=== PATIENT | female | born 1960 | race Caucasian/White ===

== ENCOUNTER 2018-07-11 12:25 | Inpatient (IN) ==
[~2018-07-11 12:25] MED LIST: *HR* Etomidate 20 MG/10 ML AMPUL IVP ONE; *HR* Midazolam HCl 5 MG/5 ML VIAL IVP ONE
[2018-07-11] MEDS ORDERED: Isovue-370 500 ML BOTTLE IVP ONE ×2 (12:33→14:12)
[2018-07-11 12:54] LABS: Basophils # 0.2 K/mcL (0.0-0.2); Basophils % 0.5 %; Eosinophils % 0.1 %; Hematocrit 42.2 % (35.3-44.9); Hemoglobin 13.5 g/dL (11.5-15.4); Immature Granulocytes % 1.3 % (0-4); Lymphocytes # 1.5 K/mcL (0.6-4.6); Lymphocytes % 4.2 %; Mean Corpuscular Hemoglobin 28.2 pg (28.0-33.3); Mean Corpuscular Volume 88.1 fL (83.0-100.0); Mean Platelet Volume 10.2 fL (9.4-12.4); Monocytes % 6.4 %; Neutrophils # 30.7 K/mcL (1.6-8.9); Platelet Count 490 K/mcL (140-400); Red Blood Count 4.79 M/mcL (3.82-4.97); Red Cell Distribution Width 15.8 % (11.5-14.5); Segmented Neutrophils % 87.5 %
[2018-07-11] MEDS ORDERED: 0.9 % Sodium Chloride 1,000 ML IVC ONE ×2 (13:00→14:22)
[2018-07-11] MEDS ORDERED: Ipratropium/Albuterol Neb 3 ML IH ONE (13:00)
[2018-07-11] MEDS ORDERED: Dexamethasone 4 MG/ML VIAL IVP ONE (13:00)
--- NOTE | 2018-07-11 13:00 | Emergency Department Note ---
Disposition Clinical Impression: Loculated pleural effusion, Hypoxia Pneumonia Qualifiers: Pneumonia type: due to unspecified organism Laterality: left Lung location: unspecified part of lung Qualified Code(s): J18.9 - Pneumonia, unspecified organism Hypotension Qualifiers: Hypotension type: unspecified hypotension type Qualified Code(s): I95.9 - Hypotension, unspecified Disposition: Admitted As Inpatient Condition: Critical Time of Disposition: 14:40 General Adult HPI - General Chief complaint: ED Shortness of Breath/Dyspnea Stated complaint: BARB Time Seen by Provider: 07/11/18 12:32 Source: EMS Nursing Notes Reviewed: Yes Vital Signs Reviewed: Yes - History of Present Illness HPI Narrative: I did see the patient immediately upon arrival and also spoke with the paramedics, the patient presents with shortness of breath which had been present for 3 months but improved and then gradually worsened 2 days ago and has been c onstant and worse with exertion and when the paramedics arrived her oxygen saturation was 74% and she is a smoker. She does not use home oxygen. She did get for penicillin filled yesterday from her [id number]. Shortness of breath is worse with exertion, she does have a cough which is present with gross hemoptysis. Denies any chest pain at rest but does have sharp chest pain when she takes a very deep breath. No pain or swelling of the lower extremities. She does not have any Rhinorrhea or sneezing. Social history: Smoker, no alcohol or drugs Pain Scale: 0 - Related Data Allergies Allergy/AdvReac Type Severity Reaction Status Date / Time No Known Allergies Allergy Verified 07/11/18 12:33 Review of Systems: Constitutional: No fever Vision: No blurred vision ENT: No rhinorrhea Respiratory: + cough Allergic: No allergies : No blood in urine GI: No blood in stool Hematologic: No bruising Dermatologic: No skin rash Musculoskeletal: No pain in the extremities Neuro: No numbness of the extremities Past Medical History - Past Medical History Medical history: Reports: no medical history - Social History Smoking Status: Current every day smoker Smokeless Tobacco Status: No Alcohol use: Reports: occasionally Drug use: Reports: none Physical Exam CONSTITUTIONAL: Well-appearing; well-nourished; A&O X 3, in no apparent distress HEAD: Normocephalic; atraumatic EYES: PERRL, no scleral icterus NOSE: The nose is normal in appearance without rhinorrhea NECK: No JVD or distended neck veins RESP: Normal chest excursion with respiration; breath sounds with bilateral rhonchi which is worse on the right CARD: Regular rhythm, without murmurs, rub or gallop ABD: Non-distended; non-tender, soft, without rigidity, rebound or guarding,no pulsatile mass CHEST: No pain with palpation SKIN: Normal for age and race; warm and dry without diaphoresis ; no apparent lesions EXTREMITIES: Pulses are 2 plus and equal times 4 extremities, no peripheral edema or calf muscle pain - General General appearance: alert Course Vital Signs Temperature 98.3 F 07/11/18 12:33 Pulse Rate 120 07/11/18 12:33 Respiratory Rate 28 07/11/18 12:33 Blood Pressure 112/68 07/11/18 12:33 O2 Sat by Pulse Oximetry 95 07/11/18 12:33 Temperature 98.3 F 07/11/18 12:33 Pulse Rate 120 07/11/18 14:19 Respiratory Rate 23 07/11/18 14:19 Blood Pressure 113/73 07/11/18 14:19 O2 Sat by Pulse Oximetry 93 07/11/18 14:19 Oxygen Delivery Oxygen Delivery Non Rebreather Mask Medical Decision Making - [facility] Narrative Medical decision making narrative: I did review the patient's EKG which shows sinus tachycardia with rate of 119 bpm, there are prominent P waves inferiorly likely indicative of underlying COPD, nonspecific ST changes but I do not see any evidence of growth arrhythmia. Patient does have orders for DuoNeb, IV steroids, chest x-ray, CT of the chest, labs and the patient will be admitted to the hospital for respiratory distress. She is on nasal cannula oxygen and satting well on this. 1300 Patient does have significant leukocytosis with a white blood cell count of 35,000 and does have elevated creatinine but we do not have old creatinine levels here so I am notifying and contacting the primary care physician to see if they have a creatinine level at their office. We will hold on the CTA of the chest at this time. She is not having gross hemoptysis here in the emergency department. With the high white blood cell count will initiate therapy with broad-spectrum antibiotics. Chest x-ray result pending. 1355 I did go back to check on the patient and she remains on a nonrebreather mask and now her oxygen saturation is 94%. She does have a blood pressure of 98 systolic and I did write for a second liter of IV fluids. Chest x-ray does show large loculated effusion and I did write for a chest CT have also paged pulmonary critical care for admission to the intensive care unit. Patient is started on Rocephin 2 g and Zithromax 500 mg and this was ordered previously so this can be focused on the patient's more likely organism pending recommendation from the critical care physician. Pending CT result I will discuss further with interventional radiology in case this patient would need drainage of this loculated effusion tonight. She is mentating well. I did speak with Dr. Gonzales her primary care physician who states that the last time he saw her was 7 years ago but does not have labs at that time [address] Leo from the ICU who except the patient for admission. We did review the test results. We are waiting for the CT scan of the chest. He does recommend switching Rocephin 2 Zosyn and I did do that and spoke with the ED pharmacist who will help facilitate this occurring. I also wrote for blood cultures. Lactate level is normal. Await results CT that I will discuss further with thoracic surgery per his recommendation. Patient is in a very critical condition and we will watch closely here. Oxygen saturation is good at this time. Mentating well. Second liter IV fluids has been written for. 1439 I did speak again with the ICU team. I did see the patient again and also spoke with the and other family who have arrived. I did speak with the interventional radiologist will look at the x-ray and call us back. I did review the lab tests. I did inform them of the critical nature of the encounter. 1518 - Medical Records Medical records reviewed: Yes I reviewed the patient's medical records. - Lab Data Lab results reviewed: Yes I reviewed the patient's lab results. Result diagrams: 07/11/18 12:43 07/11/18 12:43 Lab Results 07/11/18 07/11/18 07/11/18 Range/Units 12:40 12:43 12:43 WBC 35.1 H* (4.3-11.1) K/mcL RBC 4.79 (3.82-4.97) M/mcL Hgb 13.5 (11.5-15.4) g/dL Hct 42.2 (35.3-44.9) % MCV 88.1 (83.0-100.0) fL MCH 28.2 (28.0-33.3) pg MCHC 32.0 (31.6-35.5) g/dL RDW 15.8 H (11.5-14.5) % Plt Count 490 H (140-400) K/mcL MPV 10.2 (9.4-12.4) fL Immature Gran % 1.3 (0-4) % Seg Neutrophils % 87.5 % Lymphocytes % 4.2 % Monocytes % 6.4 % Eosinophils % 0.1 % Basophils % 0.5 % Neutrophils # 30.7 H (1.6-8.9) K/mcL Lymphocytes # 1.5 (0.6-4.6) K/mcL Monocytes # 2.3 H (0.0-1.3) K/mcL Eosinophils # 0.0 (0.0-0.6) K/mcL Basophils # 0.2 (0.0-0.2) K/mcL PT 14.4 H (9.4-12.1) Seconds INR 1.3 Sodium 134 L (136-145) mEq/L Potassium 5.8 H (3.5-5.1) mEq/L Chloride 94 L (98-107) mEq/L Carbon Dioxide 26 (23-29) mEq/L BUN 76 H (8-23) mg/dL Creatinine 3.37 H (0.60-1.20) mg/dL Est GFR ( Amer) 17 L (> 60) Est GFR (Non-Af Amer) 14 L (> 60) BUN/Creatinine Ratio 23 (6-26) Glucose 85 (70-105) mg/dL Calculated Osmolality 300 (280-300) Lactic Acid (0.5-2.2) mmol/L Calcium 8.1 L (8.6-10.3) mg/dL Total Bilirubin 0.5 (0.3-1.0) mg/dL Direct Bilirubin 0.1 (0.0-0.2) mg/dL Indirect Bilirubin 0.4 (0.0-1.2) mg/dL AST 14 (13-39) Units/L ALT 7 (7-52) Units/L Alkaline Phosphatase 144 H (34-104) Units/L Troponin I 0.03 (< 0.04) ng/mL Serum Total Protein 7.2 (6.4-8.9) g/dL Albumin 2.9 L (3.5-5.7) g/dL Globulin 4.3 H (2.4-3.5) g/dL Albumin/Globulin Ratio 0.7 L (1.1-2.2) 07/11/18 Range/Units 12:43 WBC (4.3-11.1) K/mcL RBC (3.82-4.97) M/mcL Hgb (11.5-15.4) g/dL Hct (35.3-44.9) % MCV (83.0-100.0) fL MCH (28.0-33.3) pg MCHC (31.6-35.5) g/dL RDW (11.5-14.5) % Plt Count (140-400) K/mcL MPV (9.4-12.4) fL Immature Gran % (0-4) % Seg Neutrophils % % Lymphocytes % % Monocytes % % Eosinophils % % Basophils % % Neutrophils # (1.6-8.9) K/mcL Lymphocytes # (0.6-4.6) K/mcL Monocytes # (0.0-1.3) K/mcL Eosinophils # (0.0-0.6) K/mcL Basophils # (0.0-0.2) K/mcL PT (9.4-12.1) Seconds INR Sodium (136-145) mEq/L Potassium (3.5-5.1) mEq/L Chloride (98-107) mEq/L Carbon Dioxide (23-29) mEq/L BUN (8-23) mg/dL Creatinine (0.60-1.20) mg/dL Est GFR ( Amer) (> 60) Est GFR (Non-Af Amer) (> 60) BUN/Creatinine Ratio (6-26) Glucose (70-105) mg/dL Calculated Osmolality (280-300) Lactic Acid 1.7 (0.5-2.2) mmol/L Calcium (8.6-10.3) mg/dL Total Bilirubin (0.3-1.0) mg/dL Direct Bilirubin (0.0-0.2) mg/dL Indirect Bilirubin (0.0-1.2) mg/dL AST (13-39) Units/L ALT (7-52) Units/L Alkaline Phosphatase (34-104) Units/L Troponin I (< 0.04) ng/mL Serum Total Protein (6.4-8.9) g/dL Albumin (3.5-5.7) g/dL Globulin (2.4-3.5) g/dL Albumin/Globulin Ratio (1.1-2.2) - Radiology Data Radiology results reviewed: Yes I reviewed the patient's radiology results. Critical Care Time Critical Care Time: Yes Total Critical Care Time: 45 Attestation: 45 minutes of critical care time were spent with this patient with acute respiratory distress, severe hypoxemia with room air oxygen saturation 74%, complex pulmonary process with a large loculated effusion, broad-spectrum antibiotics, discussion with the pulmonary military technology specialist, discussion with interventional radiology and multiple visits back to see the patient was on a nonrebreather mask at this time [id number]
[2018-07-11 13:02] LABS: Monocytes # 2.3 K/mcL (0.0-1.3)
[2018-07-11 13:20] LABS: INR 1.3; Prothrombin Time 14.4 Seconds (9.4-12.1)
[2018-07-11 13:40] LABS: Albumin 2.9 g/dL (3.5-5.7); Albumin/Globulin Ratio 0.7 (1.1-2.2); Bilirubin,Direct 0.1 mg/dL (0.0-0.2); Bilirubin,Indirect 0.4 mg/dL (0.0-1.2); Bilirubin,Total 0.5 mg/dL (0.3-1.0); Calcium 8.1 mg/dL (8.6-10.3); Globulin 4.3 g/dL (2.4-3.5); Potassium 5.8 mEq/L (3.5-5.1); Total Protein 7.2 g/dL (6.4-8.9); Troponin I 0.03 ng/mL (< 0.04)
[2018-07-11] MEDS ORDERED: Azithromycin 500 MG in D5% in Water 250 ML IVPB ONE (14:22)
[2018-07-11] MEDS ORDERED: Piperacillin/Tazobactam 3.375 GM in 0.9 % Sodium Chloride Mini Bag 100 ML IVPB ONE (14:37)
[2018-07-11] MEDS ORDERED: Naloxone 0.4 MG/ML INJ IVP PRN (14:58)
[2018-07-11] MEDS ORDERED: 0.9 % Sodium Chloride 1,000 ML IVC SCH (15:00)
--- NOTE | 2018-07-11 15:11 | Pulmonology History & Physical ---
<Tolu Chaney W - Last Filed: 07/11/18 16:36> Date of Encounter: 07/11/18 History of Present Illness HPI: Ms. Randall is a 58 year old female Medications and Allergies No Known Home Drugs 07/11/18 [History] Allergy/AdvReac Type Severity Reaction Status Date / Time No Known Allergies Allergy Verified 07/11/18 16:11 All Systems: The remainder of the systems were reviewed and are negative Physical Examination Vital Signs: Vital Signs, Last 4 Hours Pulse Resp BP Pulse Ox 07/11/18 14:19 120 23 113/73 93 07/11/18 13:22 18 95 07/11/18 13:20 118 93/69 92 07/11/18 12:41 94 Results - Laboratory Findings CBC and BMP: 07/11/18 12:43 07/11/18 12:43 PT/INR, D-dimer PT 14.4 Seconds (9.4-12.1) H 07/11/18 12:40 Abnormal lab findings: Abnormal lab results WBC 35.1 K/mcL (4.3-11.1) H* 07/11/18 12:43 RDW 15.8 % (11.5-14.5) H 07/11/18 12:43 Plt Count 490 K/mcL (140-400) H 07/11/18 12:43 Neutrophils # 30.7 K/mcL (1.6-8.9) H 07/11/18 12:43 Monocytes # 2.3 K/mcL (0.0-1.3) H 07/11/18 12:43 PT 14.4 Seconds (9.4-12.1) H 07/11/18 12:40 Sodium 134 mEq/L (136-145) L 07/11/18 12:43 Potassium 5.8 mEq/L (3.5-5.1) H 07/11/18 12:43 Chloride 94 mEq/L (98-107) L 07/11/18 12:43 BUN 76 mg/dL (8-23) H 07/11/18 12:43 Creatinine 3.37 mg/dL (0.60-1.20) H 07/11/18 12:43 Est GFR ( Amer) 17 (> 60) L 07/11/18 12:43 Est GFR (Non-Af Amer) 14 (> 60) L 07/11/18 12:43 Calcium 8.1 mg/dL (8.6-10.3) L 07/11/18 12:43 Alkaline Phosphatase 144 Units/L (34-104) H 07/11/18 12:43 Albumin 2.9 g/dL (3.5-5.7) L 07/11/18 12:43 Globulin 4.3 g/dL (2.4-3.5) H 07/11/18 12:43 Albumin/Globulin Ratio 0.7 (1.1-2.2) L 07/11/18 12:43 - Attending Attestation I examined this patient and my medical decision-making was reviewed with the Resident Physician. I agree with the documented findings, disposition and treatment plan as described except to the extent set forth below. We independently had [id number] contact with the patient I spent 32min of Critical Care time with this patient. It involved decision making of high complexity to assess, manipulate, and support vital organ system failure and/or to prevent further life threatening deterioration of the patient's condition. The time involved in the performance of separately reportable procedures was not counted toward critical care time. Patient seen and examined at bedside Labs, radiology, chart personally reviewed. . USER EXPERIENCE DESIGNER: Lethargic but no focal neurological deficit Pulm: Acute hypoxic respiratory failure secondary to pneumonia and pleural effusion suspected empyema versus malignant effusion patient also presenting with submassive hemoptysis but high concern for malignancy recommend bronchos copy. Chest tube is in place by IR I suspect she will need general surgery consultation . A bronchoscopy is recommended. The procedure , risks, benefits, complications, and expected outcomes have been reviewed. Benefits of diagnosis, as well as risks to include bleeding, infection, pneumothorax which may require surgical intervention, and in a small population. The patient is aware t hat sometimes test is nondiagnostic. Discussed with patient and agrees to proceed. Cards: Borderline hypotensive likely secondary to sepsis fluid resuscitation underway and lactate is normal she is tachycardic reflexively GI: Nothing by mouth for now Renal: AK I likely secondary to volume depletion/infection also use of NSAIDs she has mild hyperkalemia repeat potassium pending UOP Monitored, Cont to Trend sCr and monitor Electrolytes. ID: She is on broad-spectrum antibiotics for pneumonia and suspected empyema also with anaerobic coverage cultures have been obtained Heme/Onc: Mechanical DVT prophylaxis Endo: Glucose Monitored Integ/MSK: Skin Care per routine ICU Nursing Protocol to prevent ulcers. Lines: All lines examined without evidence of infection : Dispo: We will triaged to the ICU because of critical illness and high risk of decline CODE: Full <Mason Currie - Last Filed: 07/11/18 17:24> Date of Encounter: 07/11/18 Time of Encounter: 15:07 Assessment and Plan (1) Acute and chronic respiratory failure with hypoxia Current visit: Yes Status: Acute Patient was found to have acute on chronic respiratory failure with an initial oxygen saturation in the 70s with EMS arrived. Patient placed on a nonrebreather oxygen mask upon arrival in the emergency department and her oxygen saturations have come up into the low 90s. Patient's chest x-ray shows evidence of pneumonia as well as likely pleural effusion. A CT scan will be ordered to further evaluate the likelihood pleural effusions. Interventional radiology will be consulted from the emergency department. Patient the patient having hemoptysis, weight loss and worsening of her respiratory status as well as pneumonia and loculated pleural effusion there is a high concern that this could potentially be a malignancy. There is also potential concern for the patient having a pulmonary emboli due to being tachycardic, hypoxic and short of breath. However due to the patient's renal function we will not be able to order a CT with IV contrast. We will the CT will be ordered will be a noncontrast study. Due to the patient having loculated pleural effusion with purulent drainage mixed with blood we will do a bronchoscopy tonight to evaluate for possible mass or identification of the patient's site of hemoptysis. (2) Loculated pleural effusion Current visit: Yes Status: Acute Patient has loculated pleural effusions on the left side. Patient will have a CT scan of the chest to evaluate likely pleural effusions further. The patient does have an acute kidney injury so the scan will be a noncontrasted CT scan from the emergency department. . Interventional radiology has been counseled by the ER. Patient was seen by interventional radiology and a left-sided thoracentesis and chest tube were placed. 20 mL of purulent drainage was drawn off and sent to the lab for analysis. (3) Pneumonia Current visit: Yes Status: Acute Patient's chest x-ray is concerning for pneumonia as well as loculated pleural effusion. Patient was started on Zosyn. We will continue to monitor the patient's respiratory status. CT surgery and interventional radiology consult. The patient will be admitted to the ICU for close monitoring of her respiratory status. (4) Leukocytosis Current visit: Yes Status: Acute Patient has a significant leukocytosis of 35.1. This is likely secondary to the patient's pneumonia and potential loculated pleural effusion. A CT scan will be obtained to further evaluate the patient's likely or pleural effusion. IR was consulted for the pleural effusion. Patient has been started on IV antibiotics. Patient was started on Zosyn. We will continue to monitor the patients WBC Qualifiers: Leukocytosis type: unspecified Qualified Code(s): D72.829 - Elevated white blood cell count, unspecified (5) Acute kidney injury Current visit: Yes Status: Acute Patient appears to have an acute kidney injury. Her creatinine is 3.37 with a GFR 14. There are no other labs in [place]'s electronic medical record for comparison however it does not sound like the patient has a history of chronic kidney disease. Patient was given IV fluids. We will continue to trend the patient's renal function. (6) Hyperkalemia Current visit: Yes Status: Acute Patient has a hyperkalemia of 5.8. Patient was given IV fluids in the emergency department. This will likely decrease the patient's potassium level we will not acutely treat this at this time. We will continue to follow the patient's potassium level for any changes. There is no acute EKG changes at this time. (7) Hemoptysis Current visit: Yes Status: Acute Patient had reported hemoptysis approximately a tablespoon at a time on 2 separate occasions. Patient's hemoglobin is stable at 13.5. We will continue to monitor the patient's hemoglobin as well as worsening of her hemoptysis. Patient be taken to bronchoscopy this evening to evaluate the source of hemoptysis or potential airway lesion. (8) Hypoxia Current visit: Yes Status: Acute Patient had initial hypoxia with an oxygen saturation of 74% upon arrival of EMS. Patient has been on a nonrebreather oxygen mask in the emergency department with oxygen saturations in the low 90s. We will continue to monitor the patient's respiratory status and provide the patient with supplemental oxygen while she is admitted here to the ICU. This time I do not feel the patient requires BiPAP or intubation. (9) Hypotension Current visit: Yes Status: Acute Patient had a couple of blood pressure readings in the emergency department that were in the 90s. She was given IV hydration in the emergency department. We will continue with maintenance fluids here in the ICU. We will continue to monitor the patient's blood pressure. This time she does not require any vasopressor support. Patient's blood pressure has responded appropriately to IV fluids and her systolic blood pressure was in the 110s. Qualifiers: Hypotension type: unspecified hypotension type Qualified Code(s): I95.9 - Hypotension, unspecified (10) DVT prophylaxis Current visit: Yes Status: Acute Due the patient having hemoptysis we will use SCDs for DVT prophylaxis. History of Present Illness Chief complaint: Shortness of breath HPI: Ms. Randall is a 58 year old female that presented to the emergency department he re at [facility] [place] for shortness of breath. Patient had been expressing increasing shortness breath over the past 2-3 months but had intermittent improvement but over the last 3-4 days and feels that her shortness of breath has gotten worse. Reports was that her initial oxygen saturation was 74%. Patient reports that she is a smoker and has a history of smoking approximately 2 packs per day. Patient denies home oxygen use. Patient also reports that she has been coughing and is had a couple episodes of hemoptysis. States that she has had 2 episodes of approximately 1 tablespoon of blood in each. Patient states that she has not seen a doctor in quite some time and does not like seeing doctors. Patient also reports she has had weight loss over the past 8-9 months. Patient reports that back in November she weighed 140 some pounds and today she is approximately 130 pounds. Patient denies any chest pain. Patient reported to the emergency department staff that she felt that her shortness of breath was worse with exertion. The workup in the emergency department showed a loculated pleural effusion at the lung base and at the left lung apex. There is concern for an underlying consolidation. A CT scan will be obtained for further delineation of the pleural effusion. Interventional radiology was consult by the emergency department. He will also speak to the cardiothoracic surgery once the CT scan results. Patient was started on broad- spectrum antibiotics and will be admitted to the ICU. Past Med Surg Social Fam HX - Past Medical History Medical history: no medical history Additional medical history: Spinal Stenosis - Social History Smoking Status: Current every day smoker Smokeless Tobacco Status: No Alcohol use: occasionally Drug use: none All Systems: The remainder of the systems were reviewed and are negative - Constitutional Constitutional: weight loss, no night sweats - Cardiovascular Cardiovascular: dyspnea, no chest pain - Respiratory Respiratory: cough, dyspnea, hemoptysis - Gastrointestinal Gastrointestinal: no abdominal pain Physical Examination Vital Signs: Vital Signs, Last 4 Hours Temp Pulse Resp BP Pulse Ox 07/11/18 14:19 120 23 113/73 93 07/11/18 13:22 18 95 07/11/18 13:20 118 93/69 92 07/11/18 12:41 94 07/11/18 12:33 98.3 F 120 28 112/68 95 General appearance: alert, other (Resting in bed on a nonrebreather mask.) Eyes: nonicteric Effort: mildly labored Auscultation: bilateral: other (Course breath sounds bilaterally in the upper and lower jones.) Cardiovascular: other (Tachycardia) Gastrointestinal: normoactive bowel sounds, soft, non-tender, non-distended Integumentary: normal Extremities: no cyanosis, edema (Mild edema) Musculoskeletal: no deformities normal mental status, non-focal exam, motor strength normal and symmetric mood appropriate, affect normal Results - Laboratory Findings CBC and BMP: 07/11/18 12:43 07/11/18 12:43 PT/INR, D-dimer PT 14.4 Seconds (9.4-12.1) H 07/11/18 12:40 Abnormal lab findings: Abnormal lab results WBC 35.1 K/mcL (4.3-11.1) H* 07/11/18 12:43 RDW 15.8 % (11.5-14.5) H 07/11/18 12:43 Plt Count 490 K/mcL (140-400) H 07/11/18 12:43 Neutrophils # 30.7 K/mcL (1.6-8.9) H 07/11/18 12:43 Monocytes # 2.3 K/mcL (0.0-1.3) H 07/11/18 12:43 PT 14.4 Seconds (9.4-12.1) H 07/11/18 12:40 Sodium 134 mEq/L (136-145) L 07/11/18 12:43 Potassium 5.8 mEq/L (3.5-5.1) H 07/11/18 12:43 Chloride 94 mEq/L (98-107) L 07/11/18 12:43 BUN 76 mg/dL (8-23) H 07/11/18 12:43 Creatinine 3.37 mg/dL (0.60-1.20) H 07/11/18 12:43 Est GFR ( Amer) 17 (> 60) L 07/11/18 12:43 Est GFR (Non-Af Amer) 14 (> 60) L 07/11/18 12:43 Calcium 8.1 mg/dL (8.6-10.3) L 07/11/18 12:43 Alkaline Phosphatase 144 Units/L (34-104) H 07/11/18 12:43 Albumin 2.9 g/dL (3.5-5.7) L 07/11/18 12:43 Globulin 4.3 g/dL (2.4-3.5) H 07/11/18 12:43 Albumin/Globulin Ratio 0.7 (1.1-2.2) L 07/11/18 12:43
[2018-07-11] MEDS ORDERED: Ipratropium/Albuterol Neb 3 ML IH PRN (15:32)
--- NOTE | 2018-07-11 16:14 | IR Procedure Note ---
Date of procedure: 07/11/18 Consent Obtained: Written consent Timeout: Correct patient and procedure verified, Correct site verified, Time out performed, Skin prep completed Local anesthetic: Lidocaine 1% Indications: left loculated pleural effusion Procedure Performed: left chest tube Was there an bilingual office assistant present: Yes Office Machine Inspector: Norberto Chowdary Site/Technique: left pleural space Results/Findings: purulent fluid Estimated blood loss (cc): 0 Complications: None; Tolerated procedure well Post Procedure Treatment Plan: to suction on pleurovac Specimen: 20 cc purulent pleural fluid
[2018-07-11] MEDS ORDERED: methylPREDNISolone 125 MG/2 ML VIAL IVP ONE (16:22)
[2018-07-11] MEDS ORDERED: Ringers Solution, Lactated 1,000 ML ONE (16:27)
[2018-07-11] MEDS ORDERED: Ringers Solution, Lactated 1,000 ML IVC ONE (16:28)
[2018-07-11] MEDS ORDERED: *HR* Propofol 200 MG/20 ML VIAL IVP ONE (16:53)
[2018-07-11] MEDS ORDERED: Lidocaine -MPF 2% 2 ML VIAL ONE (16:55)
[2018-07-11] MEDS ORDERED: *HR* Succinylcholine 200 MG/10 ML VIAL IVP ONE (16:55)
[2018-07-11] MEDS ORDERED: methylPREDNISolone 125 MG/2 ML VIAL ONE (17:20)
--- NOTE | 2018-07-11 17:23 | Anesthesia Evaluation PreOp ---
Date of Encounter: 07/11/18 Time of Encounter: 17:25 - Past History Planned Operation: Bronchoscopy Pulmonary History: Smoker, COPD, Other (Left Pleural Effusion has Chest Tube) COMMUNICATIONS PROJECT LEAD History: Denies Any Significant HX Other Medical History: Renal (CKD) Anesthesia History: No Prior Anesthetic Complications : No Alcohol Use: none Drug use: none Medications and Allergies No Known Home Drugs 07/11/18 [History] Allergy/AdvReac Type Severity Reaction Status Date / Time No Known Allergies Allergy Verified 07/11/18 16:11 - Meds/Allergy Pre-op Review Medications Reviewed: Yes Allergies Reviewed: Yes Beta Blockers on Current Med List: No Anesthesia Results - Labs 07/11/18 12:43 07/11/18 12:43 Anesthesia Exam O2 Sat Height 1.75 m Weight 59.829 kg O2 Sat by Pulse Oximetry 93 O2 Sat by Pulse Oximetry 93 O2 Sat by Pulse Oximetry 95 O2 Sat by Pulse Oximetry 92 O2 Sat by Pulse Oximetry 94 O2 Sat by Pulse Oximetry 95 Vital Signs Temp Pulse Resp BP Pulse Ox 98.3 F 120 28 112/68 95 07/11/18 12:33 07/11/18 12:33 07/11/18 12:33 07/11/18 12:33 07/11/18 12:33 Height: 5'9 Weight: 131 lbs NPO (# of Hours): 0800 Pain Scale: 0 - HEENT Pupil (Motor): Pupils equal, EOMI Mallampati: III Oral Opening: Less than or equal to 3 - COMMUNICATIONS PROJECT LEAD LOC: Oriented COMMUNICATIONS PROJECT LEAD Motor: Normal RUE, Normal LUE, Normal RLE, Normal LLE, Normal Face COMMUNICATIONS PROJECT LEAD Sensory: Normal: RUE, LUE, RLE, LLE, Face - Cardiac Rhythm: Regular Murmur: None JVD: No Carotid Bruit: No - Pulmonary Breath Sounds: bilateral Clear Respiratory Effort: Symmetrical Anesthesia Assess/Plan ASA Score: 3, E Level of consciousness: Cooperative, Oriented Anesthetic Plan: General Autologous Blood: No Monitoring Plan: Standard Monitors Recovery Plan: PACU (Discussed GA, agrees to proceed)
[2018-07-11 17:30] LABS: Glucose,Pleural Fluid < 10 mg/dL (No Ref Range); Total Protein,Pleural Fluid 4.9 g/dL (No Ref Range)
[2018-07-11 17:39] LABS: Basophils # 0.1 K/mcL (0.0-0.2); Basophils % 0.3 %; Hematocrit 40.7 % (35.3-44.9); Hemoglobin 12.7 g/dL (11.5-15.4); Lymphocytes % 3.4 %; Mean Corpuscular HGB Conc 31.2 g/dL (31.6-35.5); Mean Corpuscular Hemoglobin 28.2 pg (28.0-33.3); Mean Corpuscular Volume 90.4 fL (83.0-100.0); Mean Platelet Volume 10.3 fL (9.4-12.4); Monocytes # 0.5 K/mcL (0.0-1.3); Monocytes % 1.6 %; Neutrophils # 27.8 K/mcL (1.6-8.9); Platelet Count 430 K/mcL (140-400); Red Cell Distribution Width 15.8 % (11.5-14.5); Segmented Neutrophils % 92.7 %
[2018-07-11] MEDS ORDERED: *HR* PHENYLEPHRINE 1,000 MCG/10 ML SYRINGE IVP ONE (17:42)
[2018-07-11] MEDS ORDERED: *HR* FentaNYL (PF) 100 MCG/2 ML VIAL ONE (17:42)
[2018-07-11 17:51] LABS: VBG Ionized Calcium 0.93 mmol/L (1.15-1.35); VBG PH 7.23 pH Units (7.32-7.42)
[2018-07-11] MEDS ORDERED: Ondansetron 4 MG/2 ML VIAL ONE (18:06)
[2018-07-11] MEDS ORDERED: Dexamethasone 4 MG/ML VIAL ONE (18:06)
[2018-07-11 18:12] LABS: Calcium 7.9 mg/dL (8.6-10.3); Magnesium 2.1 mg/dL (1.6-2.6); Phosphorous 5.5 mg/dL (2.7-4.5); Potassium 5.7 mEq/L (3.5-5.1)
[2018-07-11 18:17] LABS: Appearance of Pleural Fl Bloody (Clear)
[2018-07-11] MEDS ORDERED: Artificial Tears SOLN 15 ML BOTTLE BOTH EYES PRN (18:38)
--- NOTE | 2018-07-11 18:47 | Anesthesia Evaluation Post Op ---
Date of Encounter: 07/11/18 Time of Encounter: 18:50 - Vital Signs Vital Signs: Vital Signs/O2 Sat/Glucose, Most Current Temp Pulse Resp BP Pulse Ox 07/11/18 17:43 115 18 104/66 88 07/11/18 17:30 115 22 103/71 91 07/11/18 17:00 115 20 102/61 92 07/11/18 16:25 97.7 F 116 20 95/62 93 - Lungs Lungs: Rhonchi - Airway Airway: Intubated - Cardiovascular Baseline Rhythm - Mental Status Mental Status: Asleep with brisk response to light stimulation - Pain Pain Scale: 0 - Nausea Vomiting Nausea Vomiting: Not Present - Hydration Hydration: NPO - Discharge PostOp Status: Transfer Patient to floor (To ICU intubated, will extubate and place on BiPAP)
[2018-07-11] MEDS ORDERED: 0.9 % Sodium Chloride 500 ML IVC ONE (18:52)
[2018-07-11] MEDS ORDERED: Insulin Human Regular 10 UNIT in 0.9 % Sodium Chloride 10 ML IV ONE (18:53)
[2018-07-11] MEDS ORDERED: *HR* Dextrose 50 % in Water (Syg) 50 ML SYRINGE IVP ONE (18:53)
[2018-07-11] MEDS ORDERED: *HR* Dextrose 50 % in Water (Syg) 50 ML SYRINGE IVP PRN (18:55)
[2018-07-11] MEDS ORDERED: Piperacillin/Tazobactam 3.375 GM in 0.9 % Sodium Chloride Mini Bag 100 ML IVPB SCH (20:00)
[2018-07-11] MEDS: Chlorhexidine Rinse 15 ML MOUTHWASH MM SCH (20:53)
[2018-07-11 21:47] LABS: ABG Base Excess -1 mEq/L (-2 to 3); ABG HCO3 30 mEq/L (21-27); ABG Oxygen Saturation 97 % (95-98); ABG PCO2 81 mmHg (35-45); ABG PH 7.17 pH Units (7.32-7.45); ABG PO2 124 mmHg (85-104); ABG TCO2 32 mEq/L (20-26); Blood Gas Modality ASSIST CONTROL; Blood Gas PEEP 5 cm H2O; Blood Gas Respiration Rate 14; Blood Gas VT 450 cc
[2018-07-11] MEDS: 0.9 % Sodium Chloride 1,000 ML IVC SCH (22:00)
[2018-07-11] MEDS ORDERED: 0.9 % Sodium Chloride 1,000 ML ONE (22:31)
[2018-07-11 22:35] LABS: Potassium 5.2 mEq/L (3.5-5.1)
[2018-07-12] MEDS: Piperacillin/Tazobactam 3.375 GM in 0.9 % Sodium Chloride Mini Bag 100 ML IVPB SCH ×3 (00:35→15:50)
[2018-07-12] MEDS: Artificial Tears SOLN 15 ML BOTTLE BOTH EYES SCH ×7 (00:49→20:43)
[2018-07-12] MEDS ORDERED: 0.9 % Sodium Chloride 250 ML IVC ONE (02:03)
[2018-07-12] MEDS: 0.9 % Sodium Chloride 1,000 ML IVC SCH ×2 (02:36→10:16)
[2018-07-12 05:03] LABS: ABG Base Excess -2 mEq/L (-2 to 3); ABG HCO3 25 mEq/L (21-27); ABG Oxygen Saturation 93 % (95-98); ABG PCO2 51 mmHg (35-45); ABG PO2 75 mmHg (85-104); ABG TCO2 26 mEq/L (20-26); Blood Gas Modality VC+; Blood Gas PEEP 5 cm H2O; Blood Gas Respiration Rate 18; Blood Gas VT 450 cc
[2018-07-12 05:17] LABS: Basophils % 0.3 %
[2018-07-12 05:19] LABS: Basophils # 0.1 K/mcL (0.0-0.2); Hematocrit 32.5 % (35.3-44.9); Immature Granulocytes % 2.7 % (0-4); Lymphocytes # 1.6 K/mcL (0.6-4.6); Mean Corpuscular HGB Conc 30.8 g/dL (31.6-35.5); Mean Corpuscular Hemoglobin 28.2 pg (28.0-33.3); Mean Corpuscular Volume 91.5 fL (83.0-100.0); Mean Platelet Volume 10.6 fL (9.4-12.4); Monocytes # 0.5 K/mcL (0.0-1.3); Monocytes % 1.8 %; Neutrophils # 24.3 K/mcL (1.6-8.9); Platelet Count 405 K/mcL (140-400); Red Blood Count 3.55 M/mcL (3.82-4.97); Red Cell Distribution Width 15.9 % (11.5-14.5); Segmented Neutrophils % 89.2 %
[2018-07-12 05:29] LABS: INR 1.2; Prothrombin Time 13.7 Seconds (9.4-12.1)
[2018-07-12 05:38] LABS: Albumin 2.4 g/dL (3.5-5.7); Albumin/Globulin Ratio 0.7 (1.1-2.2); Bilirubin,Direct 0.2 mg/dL (0.0-0.2); Bilirubin,Indirect 0.2 mg/dL (0.0-1.2); Bilirubin,Total 0.4 mg/dL (0.3-1.0); Calcium 7.8 mg/dL (8.6-10.3); Globulin 3.3 g/dL (2.4-3.5); Potassium 4.9 mEq/L (3.5-5.1); Total Protein 5.7 g/dL (6.4-8.9)
[2018-07-12 06:07] LABS: Platelet Estimate Normal (Normal)
--- NOTE | 2018-07-12 06:36 | Event Note ---
Date of Encounter: 07/11/18 Time of Encounter: 19:22 Was paged by nurse at 7:22 PM at onset of shift that patient was crashing. Patient had been successfully extubated at 19:10. Per nurse, patient began to desaturate while on BiPAP shortly thereafter and subsequently became unresponsive. Several attempts to wake the patient was unsuccessful including Narcan which had no response. On my arrival patient was being bagged by respiratory. Blood pressure stable low patient was tachycardia in the 120s. O2 saturations in the 90s. Patient difficult to arouse with sternal rub. Decision was made to reintubate patient due to acute respiratory failure. Patient successfully intubated. Large amounts of secretions were noted on deep suctioning. Chest x-ray obtained which showed note substantial change in left pleural effusion. Persistent right basilar airspace disease. Patient placed on propofol for sedation. EKG was obtained which showed no acute ischemic changes. We will obtain troponin level and ABG.
--- NOTE | 2018-07-12 07:24 | Pulmonology Progress Note ---
<Mason Currie - Last Filed: 07/12/18 11:40> Date of Encounter: 07/12/18 Time of Encounter: 07:24 Assessment and Plan (1) Acute and chronic respiratory failure with hypoxia Current Visit: Yes Status: Acute Patient was found to have acute on chronic respiratory failure with an initial oxygen saturation in the 70s with EMS arrived. Patient placed on a nonrebreather oxygen mask upon arrival in the emergency department and her oxygen saturations have come up into the low 90s. Patient's chest x-ray shows evidence of pneumonia as well as likely pleural effusion. Patient the patient having hemoptysis, weight loss and worsening of her respiratory status as well as pneumonia and loculated pleural effusion there is concern that this could potentially be a malignancy. After bronchoscopy last night the patient was unable to be extubated in the recovery room. She came back to the ICU intubated. She is not extubated in the ICU to BiPAP. Patient tolerated BiPAP for a very short period of time before having to be reintubated overnight. (2) Loculated pleural effusion Current Visit: Yes Status: Acute Patient has loculated pleural effusions on the left side. Patient will have a CT scan of the chest to evaluate likely pleural effusions further. Pleural effusion sample was sent to lab for analysis we are still waiting for final results. CT surgery has been consult on this patient and my understanding is that they plan to take her for surgery today. (3) Pneumonia Current Visit: Yes Status: Acute Patient's chest x-ray is concerning for pneumonia as well as loculated pleural effusion. Patient was started on Zosyn. We will continue to monitor the patient's respiratory status. CT surgery and interventional radiology consult. Qualifiers: Pneumonia type: due to unspecified organism Laterality: left Lung locati on: unspecified part of lung Qualified Code(s): J18.9 - Pneumonia, unspecified organism (4) Leukocytosis Current Visit: Yes Status: Acute Patient has a leukocytosis of 27.2. This is likely secondary to the patient's pneumonia and potential loculated pleural effusion. IR was consulted for the pleural effusion. Patient was started on Zosyn. We will continue to monitor the patients WBC. Qualifiers: Leukocytosis type: unspecified Qualified Code(s): D72.829 - Elevated white blood cell count, unspecified (5) Acute kidney injury Current Visit: Yes Status: Acute Patient appears to have an acute kidney injury. Her acute kidney injury is improving. Her most recent creatinine is 2.31 with a GFR of 22. We will continue to monitor the patient's renal function and urine output. (6) Hyperkalemia Current Visit: Yes Status: Acute Hyperkalemia has resolved. Patient has a potassium of 4.9 this morning. Patient did receive dextrose insulin last night. (7) Hemoptysis Current Visit: Yes Status: Acute Patient had reported hemoptysis approximately a tablespoon at a time on 2 separate occasions. Bronchoscopy did not show any airway lesions that showed any signs of bleeding. (8) Hypoxia Current Visit: Yes Status: Acute Patient had initial hypoxia with an oxygen saturation of 74% upon arrival of EMS. Patient was on a nonrebreather mask until she went for bronchoscopy. Patient was then intubated for the procedure. After being extubated in the ICU after her procedure the patient was extubated BiPAP however did not tolerate the BiPAP and ended up being reintubated. (9) Hypotension Current Visit: Yes Status: Acute Patient had a couple of blood pressure readings in the emergency department that were in the 90s. She was given IV hydration in the emergency department. We will continue with maintenance fluids here in the ICU. We will continue to monitor the patient's blood pressure. This time she does not require any vasopressor support. Patient's blood pressure has responded appropriately to IV fluids and her systolic blood pressure has been 100-110. Qualifiers: Hypotension type: unspecified hypotension type Qualified Code(s): I95.9 - Hypotension, unspecified (10) DVT prophylaxis Current Visit: Yes Status: Acute Due the patient having hemoptysis we will use SCDs for DVT prophylaxis. Subjective Principal diagnosis: Acute on chronic respiratory failure Interval history: Patient was extubated yesterday evening around 7 PM. The patient was extubated BiPAP however did not tolerate this for an extended period of time and required reintubation overnight. Objective PUL Vital signs: Last Vital Signs Temp 97.8 F 07/12/18 06:00 Pulse 79 07/12/18 06:00 Resp 18 07/12/18 06:00 BP 100/58 07/12/18 06:00 Pulse Ox 97 07/12/18 06:00 General appearance: asleep, other (Intubated ) Eyes: nonicteric Neck: supple, no JVD Effort: mildly labored Auscultation: bilateral: other (Coarse breath sounds ) Cardiovascular: regular rate and rhythm Gastrointestinal: normoactive bowel sounds, soft, non-tender Extremities: no edema, pink and warm Musculoskeletal: no deformities non-focal exam ( not sure what due to the patient being intubated and unable to fully assess. ), other (Unable to fully assess due to the patient being intubated and still having some altered mentation. However the patient does move all 4 extremities and does not appear to have any focal deficits on exam. ) other Ventilator Settings Ventilator Settings: Ventilator Settings, Last 8 Hours Ventilator Tidal Volume 450 Setting Ventilator Tidal Volume 450 Setting Ventilator Tidal Volume 450 Setting Ventilator Tidal Volume 450 Setting Ventilator Tidal Volume 450 Setting Ventilator Tidal Volume 450 Setting Ventilator Tidal Volume 450 Setting Ventilator Tidal Volume 450 Setting Ventilator Tidal Volume 450 Setting Ventilator Tidal Volume 450 Setting Ventilator Tidal Volume 450 Setting Ventilator Tidal Volume 450 Setting Ventilator Tidal Volume 450 Setting Ventilator Respiratory Rate 18 Setting Ventilator Respiratory Rate 18 Setting Ventilator Respiratory Rate 18 Setting Ventilator Respiratory Rate 18 Setting Ventilator Respiratory Rate 18 Setting Ventilator Respiratory Rate 18 Setting Ventilator Respiratory Rate 18 Setting Ventilator Respiratory Rate 18 Setting Ventilator Respiratory Rate 18 Setting Ventilator Respiratory Rate 18 Setting Ventilator Respiratory Rate 18 Setting Ventilator Respiratory Rate 18 Setting Ventilator Respiratory Rate 18 Setting Actual Respiratory Rate 18 Actual Respiratory Rate 18 Actual Respiratory Rate 18 Actual Respiratory Rate 18 Actual Respiratory Rate 18 Actual Respiratory Rate 18 Actual Respiratory Rate 18 Actual Respiratory Rate 18 Actual Respiratory Rate 18 Actual Respiratory Rate 18 Actual Respiratory Rate 18 Actual Respiratory Rate 18 Positive End Expiratory 5 Pressure Positive End Expiratory 5 Pressure Positive End Expiratory 5 Pressure Positive End Expiratory 5 Pressure Positive End Expiratory 5 Pressure Positive End Expiratory 5 Pressure Positive End Expiratory 5 Pressure Positive End Expiratory 5 Pressure Positive End Expiratory 5 Pressure Positive End Expiratory 5 Pressure Positive End Expiratory 5 Pressure Positive End Expiratory 5 Pressure Positive End Expiratory 5 Pressure Peak Inspiratory Airway 26 Pressure Peak Inspiratory Airway 26 Pressure Peak Inspiratory Airway 25 Pressure Peak Inspiratory Airway 25 Pressure Peak Inspiratory Airway 24 Pressure Peak Inspiratory Airway 24 Pressure Peak Inspiratory Airway 25 Pressure Peak Inspiratory Airway 24 Pressure Peak Inspiratory Airway 23 Pressure Peak Inspiratory Airway 23 Pressure Peak Inspiratory Airway 23 Pressure Results - Laboratory Findings CBC and BMP: 07/12/18 04:40 07/12/18 04:40 ABG ABG pH 7.30 pH Units (7.32-7.45) L 07/12/18 05:00 ABG pCO2 51 mmHg (35-45) H 07/12/18 05:00 ABG pO2 75 mmHg (85-104) L 07/12/18 05:00 ABG O2 Saturation 93 % (95-98) L 07/12/18 05:00 PT/INR, D-dimer PT 13.7 Seconds (9.4-12.1) H 07/12/18 04:40 Abnormal lab findings: Abnormal lab results WBC 27.2 K/mcL (4.3-11.1) H 07/12/18 04:40 RBC 3.55 M/mcL (3.82-4.97) L 07/12/18 04:40 Hgb 10.0 g/dL (11.5-15.4) L D 07/12/18 04:40 Hct 32.5 % (35.3-44.9) L 07/12/18 04:40 MCHC 30.8 g/dL (31.6-35.5) L 07/12/18 04:40 RDW 15.9 % (11.5-14.5) H 07/12/18 04:40 Plt Count 405 K/mcL (140-400) H 07/12/18 04:40 Neutrophils # 24.3 K/mcL (1.6-8.9) H 07/12/18 04:40 PT 13.7 Seconds (9.4-12.1) H 07/12/18 04:40 ABG pH 7.30 pH Units (7.32-7.45) L 07/12/18 05:00 ABG pCO2 51 mmHg (35-45) H 07/12/18 05:00 ABG pO2 75 mmHg (85-104) L 07/12/18 05:00 ABG O2 Saturation 93 % (95-98) L 07/12/18 05:00 VBG pH 7.23 pH Units (7.32-7.42) L 07/11/18 17:48 BUN 71 mg/dL (8-23) H 07/12/18 04:40 Creatinine 2.31 mg/dL (0.60-1.20) H 07/12/18 04:40 Est GFR ( Amer) 26 (> 60) L 07/12/18 04:40 Est GFR (Non-Af Amer) 22 (> 60) L 07/12/18 04:40 BUN/Creatinine Ratio 31 (6-26) H 07/12/18 04:40 POC Glucose 126 mg/dL (70-99) H 07/11/18 23:08 Calculated Osmolality 311 (280-300) H 07/12/18 04:40 Calcium 7.8 mg/dL (8.6-10.3) L 07/12/18 04:40 Venous Ioniz Calcium 0.93 mmol/L (1.15-1.35) L 07/11/18 17:48 Phosphorus 5.5 mg/dL (2.7-4.5) H 07/11/18 17:25 Alkaline Phosphatase 125 Units/L (34-104) H 07/12/18 04:40 Serum Total Protein 5.7 g/dL (6.4-8.9) L 07/12/18 04:40 Albumin 2.4 g/dL (3.5-5.7) L 07/12/18 04:40 Albumin/Globulin Ratio 0.7 (1.1-2.2) L 07/12/18 04:40 Pleural Appearance Bloody (Clear) A 07/11/18 15:50 - Microbiology Findings Microbiology Findings: Microbiology, Last 48 Hours 07/11/18 Unknown Respiratory Culture - Preliminary Left Lower Lobe Lung 07/11/18 15:50 Gram Stain - Final Pleural Fluid 07/11/18 16:07 Blood Culture - Preliminary Peripheral Venipuncture Culture is incubating and being continuously monitored for growth. Final report to follow. 07/11/18 16:07 Blood Culture - Preliminary Peripheral Venipuncture Culture is incubating and being continuously monitored for growth. Final report to follow. - Clinical Findings Intake & Output: Intake & Output 07/11/18 07/11/18 07/12/18 15:59 23:59 07:59 Intake Total 1000 / 1000 1000 / 1000 Output Total 752 / 752 679 / 679 Balance 1000 / 1000 -732 / -732 321 / 321 Weight 59.829 kg 61 kg Consult Discharge Plan - Plan Referrals: Anmol Langley Jr, MD [Primary Care Provider] - <Tolu Chaney - Last Filed: 07/12/18 13:17> Date of Encounter: 07/12/18 Objective PUL Vital signs: Last Vital Signs Temp 98.5 F 07/12/18 12:15 Pulse 81 07/12/18 10:00 Resp 18 07/12/18 10:00 BP 90/57 07/12/18 10:00 Pulse Ox 100 07/12/18 10:00 Ventilator Settings Ventilator Settings: Ventilator Settings, Last 8 Hours Ventilator Tidal Volume 450 Setting Ventilator Tidal Volume 450 Setting Ventilator Tidal Volume 450 Setting Ventilator Tidal Volume 450 Setting Ventilator Tidal Volume 450 Setting Ventilator Tidal Volume 450 Setting Ventilator Respiratory Rate 18 Setting Ventilator Respiratory Rate 18 Setting Ventilator Respiratory Rate 18 Setting Ventilator Respiratory Rate 18 Setting Ventilator Respiratory Rate 18 Setting Ventilator Respiratory Rate 18 Setting Actual Respiratory Rate 18 Actual Respiratory Rate 18 Actual Respiratory Rate 18 Actual Respiratory Rate 18 Actual Respiratory Rate 18 Positive End Expiratory 5 Pressure Positive End Expiratory 5 Pressure Positive End Expiratory 5 Pressure Positive End Expiratory 5 Pressure Positive End Expiratory 5 Pressure Positive End Expiratory 5 Pressure Peak Inspiratory Airway 28 Pressure Peak Inspiratory Airway 26 Pressure Peak Inspiratory Airway 26 Pressure Peak Inspiratory Airway 26 Pressure Results - Laboratory Findings CBC and BMP: 07/12/18 04:40 07/12/18 04:40 ABG ABG pH 7.30 pH Units (7.32-7.45) L 07/12/18 05:00 ABG pCO2 51 mmHg (35-45) H 07/12/18 05:00 ABG pO2 75 mmHg (85-104) L 07/12/18 05:00 ABG O2 Saturation 93 % (95-98) L 07/12/18 05:00 PT/INR, D-dimer PT 13.7 Seconds (9.4-12.1) H 07/12/18 04:40 Abnormal lab findings: Abnormal lab results WBC 27.2 K/mcL (4.3-11.1) H 07/12/18 04:40 RBC 3.55 M/mcL (3.82-4.97) L 07/12/18 04:40 Hgb 10.0 g/dL (11.5-15.4) L D 07/12/18 04:40 Hct 32.5 % (35.3-44.9) L 07/12/18 04:40 MCHC 30.8 g/dL (31.6-35.5) L 07/12/18 04:40 RDW 15.9 % (11.5-14.5) H 07/12/18 04:40 Plt Count 405 K/mcL (140-400) H 07/12/18 04:40 Neutrophils # 24.3 K/mcL (1.6-8.9) H 07/12/18 04:40 PT 13.7 Seconds (9.4-12.1) H 07/12/18 04:40 ABG pH 7.30 pH Units (7.32-7.45) L 07/12/18 05:00 ABG pCO2 51 mmHg (35-45) H 07/12/18 05:00 ABG pO2 75 mmHg (85-104) L 07/12/18 05:00 ABG O2 Saturation 93 % (95-98) L 07/12/18 05:00 VBG pH 7.23 pH Units (7.32-7.42) L 07/11/18 17:48 BUN 71 mg/dL (8-23) H 07/12/18 04:40 Creatinine 2.31 mg/dL (0.60-1.20) H 07/12/18 04:40 Est GFR ( Amer) 26 (> 60) L 07/12/18 04:40 Est GFR (Non-Af Amer) 22 (> 60) L 07/12/18 04:40 BUN/Creatinine Ratio 31 (6-26) H 07/12/18 04:40 POC Glucose 105 mg/dL (70-99) H 07/12/18 11:04 Calculated Osmolality 311 (280-300) H 07/12/18 04:40 Calcium 7.8 mg/dL (8.6-10.3) L 07/12/18 04:40 Venous Ioniz Calcium 0.93 mmol/L (1.15-1.35) L 07/11/18 17:48 Phosphorus 5.5 mg/dL (2.7-4.5) H 07/11/18 17:25 Alkaline Phosphatase 125 Units/L (34-104) H 07/12/18 04:40 Serum Total Protein 5.7 g/dL (6.4-8.9) L 07/12/18 04:40 Albumin 2.4 g/dL (3.5-5.7) L 07/12/18 04:40 Albumin/Globulin Ratio 0.7 (1.1-2.2) L 07/12/18 04:40 Pleural Appearance Bloody (Clear) A 07/11/18 15:50 - Microbiology Findings Microbiology Findings: Microbiology, Last 48 Hours 07/11/18 15:50 Body Fluid Culture - Preliminary Pleural Fluid 07/11/18 Unknown Respiratory Culture - Preliminary Left Lower Lobe Lung 07/11/18 15:50 Gram Stain - Final Pleural Fluid 07/11/18 16:07 Blood Culture - Preliminary Peripheral Venipuncture Culture is incubating and being continuously monitored for growth. Final report to follow. 07/11/18 16:07 Blood Culture - Preliminary Peripheral Venipuncture Culture is incubating and being continuously monitored for growth. Final report to follow. - Clinical Findings Intake & Output: Intake & Output 07/11/18 07/12/18 07/12/18 23:59 07:59 15:59 Intake Total / 1100 / 1100 1100 / 1100 Output Total 752 / 752 679 / 679 690 / 690 Balance -732 / -732 421 / 421 410 / 410 Weight 61 kg - Attending Attestation I examined this patient and my medical decision-making was reviewed with the Resident Physician. I agree with the documented findings, disposition and treatment plan as described except to the extent set forth below. We independently had [id number] contact with the patient I spent 33min of Critical Care time with this patient. It involved decision making of high complexity to assess, manipulate, and support vital organ system failure and/or to prevent further life threatening deterioration of the patie nt's condition. The time involved in the performance of separately reportable procedures was not counted toward critical care time. Patient seen and examined at bedside Labs, radiology, chart personally reviewed. Management was reviewed during multidisciplinary critical care rounds. HIGHWAY PAINTER: Patient is on the ventilator but not requiring sedation she is comfortable continue to treat as needed for goal Josette 2-3 Pulm: Acute hypoxic hypercapnic respiratory failure patient was intubated for bronchoscopy yesterday subsequently extubated but had to be reintubated because of hypercapnia she has acceptable gas exchange today but has persistent empyema despite the small bore chest tube drainage I have consulted CT surgery and plan is for surgical decortication she will remain on broad-spectrum antimicrobials and being treated for COPD exacerbation Cards: Borderline hypotensive secondary to volume depletion and sepsis however does not required vasopressors at this point she is at high risk for deterioration we will continue to monitor this GI: GI prophylaxis given while on vent Nutrition: Nothing by mouth for now we will need advanced nutrition as soon as possible given her malnutrition Renal: Acute kidney injury improving hyperkalemia is resolved UOP Monitored, Cont to Trend sCr and monitor Electrolytes. ID: [id number] treating with antibiotics plan for surgical decortication Heme/Onc: Mechanical DVT prophylaxis given because of recent episode of hemoptysis and drop in H&H overnight which is likely dilutional we will trend this closely there is no overt evidence of hemorrhage Endo: Glucose Monitored Integ/MSK: Skin Care per routine ICU Nursing Protocol to prevent ulcers. Lines: All lines examined without evidence of infection : Dispo: Remain in ICU for critical illness CODE: :Full updated at bedside all questions answered
[2018-07-12] MEDS: methylPREDNISolone 125 MG/2 ML VIAL IVP SCH ×2 (08:25→15:50)
[2018-07-12] MEDS: Chlorhexidine Rinse 15 ML MOUTHWASH MM SCH ×2 (08:25→20:43)
[2018-07-12] MEDS: Pantoprazole 40 MG VIAL IVP SCH (08:25)
--- NOTE | 2018-07-12 09:06 | Cardiothoracic Consult Note ---
Date of Encounter: 07/12/18 Time of Encounter: 09:04 Assessment and Plan (1) Hemothorax on left Current Visit: Yes Status: Acute The assessment and plan as outlined above was discussed with the patient and/or family members who expressed understanding and agreement. All questions were answered. i have consulted with the patient and her family. plan left thoracotomy decortication. i have consulted with pulm med and agree with the possibility of cancer given the hemoptysis. plan surgery peace (2) Acute kidney injury Current Visit: Yes Status: Acute The assessment and plan as outlined above was discussed with the patient and/or family members who expressed understanding and agreement. All questions were answered. continue hydration. labs slightly improved today (3) Acute and chronic respiratory failure with hypoxia Current Visit: Yes Status: Acute The assessment and plan as outlined above was discussed with the patient and/or family members who expressed understanding and agreement. All questions were answered. continue respiratory support. plan to keep patient intubated today - History of Present Illness Consult date: 07/12/18 Requesting physician: Tolu Chaney Consult reason: empyema Chief complaint: sob History of present illness: Ms. Randall is a 58 year old female who presented to [facility] on July 11 after worsening of her acute respiratory failure. She had been short of breath and leg symptoms for approximately 2-3 weeks with most recent exacerbation of her shortness of breath in the last 3-4 days. In the emergency room she was found to be tachycardic, hypoxic with saturations in the low 70s, and having hemoptysis. CT scan demonstrated a multi-loculated pleural effusion and pneumonia. She required intubation. I am being consult visit to remove remaining loculated pleural effusion after thoracentesis. Past Med Surg Social Fam HX - Past Medical History Medical history: no medical history Additional medical history: Spinal Stenosis Psychiatric history: no psych history - Past Surgical History Surgical History: no surgical history - Social History Smoking Status: Current every day smoker Packs per day: 1 Smokeless Tobacco Status: No Alcohol use: none Drug use: none - Family History Mother Hx Family Respiratory Disorders: Yes (COPD, Emphysema) - Additional Family History Additional family history: positive dfor dm. denies cancer, heart disease, dialysis, cva Medications and Allergies No Known Home Drugs 07/11/18 [History] Allergy/AdvReac Type Severity Reaction Status Date / Time No Known Allergies Allergy Verified 07/11/18 16:11 All Systems Review: The remainder of the systems were reviewed and are negative - Constitutional Constitutional: anorexia, chills, fatigue, malaise, weight loss (10 to 15 pounds ) - Cardiovascular Cardiovascular: diaphoresis, dyspnea at rest, dyspnea on exertion, rapid heart rate - Respiratory Respiratory: cough, dyspnea, hemoptysis, wheezing, chest wall pain - Gastrointestinal Gastrointestinal: nausea, other (reflux ) - Musculoskeletal Musculoskeletal: myalgias Physical Examination Vital Signs, Last 4 Hours Temp Pulse Resp BP Pulse Ox 07/12/18 08:37 97.7 F 07/12/18 07:41 18 110/67 99 07/12/18 06:00 97.8 F 79 18 100/58 97 07/12/18 05:47 18 97 General: No Apparent Distress, Well nourished, Other (intubated but following all commands and not sedated ) HEENT: Atraumatic, Normocephaly, Trachea midline Neck: No JVD Lungs: Other (coarse rhonchi. bloody chest tube drainage >500) Neuro: Alert and responsive, No focal deficits noted, Cranial nerves intact, Motor nerves intact Vascular: Normal capillary refill Abdomen: Soft, Non-tender Skin: No rashes noted on visualized skin Extremities: No Clubbing, No Cyanosis, No Edema, Normal Pulses Results 07/12/18 04:40 07/12/18 04:40 Lab Results, Last 24 hours 07/11/18 07/11/18 07/11/18 12:40 12:43 12:43 WBC 35.1 H* Hgb 13.5 Hct 42.2 Plt Count 490 H INR 1.3 Sodium 134 L Potassium 5.8 H Chloride 94 L Carbon Dioxide 26 BUN 76 H Creatinine 3.37 H Glucose 85 Calcium 8.1 L Magnesium Total Bilirubin 0.5 AST 14 ALT 7 Alkaline Phosphatase 144 H Troponin I 0.03 07/11/18 07/11/18 07/11/18 17:25 17:25 22:00 WBC 30.0 H* Hgb 12.7 Hct 40.7 Plt Count 430 H INR Sodium 134 L 136 Potassium 5.7 H 5.2 H Chloride 98 100 Carbon Dioxide 23 23 BUN 73 H 68 H Creatinine 3.07 H 2.61 H Glucose 85 155 H Calcium 7.9 L 8.0 L Magnesium 2.1 Total Bilirubin AST ALT Alkaline Phosphatase Troponin I 07/12/18 07/12/18 07/12/18 04:40 04:40 04:40 WBC 27.2 H Hgb 10.0 L D Hct 32.5 L Plt Count 405 H INR 1.2 Sodium 140 Potassium 4.9 Chloride 101 Carbon Dioxide 23 BUN 71 H Creatinine 2.31 H Glucose 101 Calcium 7.8 L Magnesium Total Bilirubin 0.4 AST 16 ALT 9 Alkaline Phosphatase 125 H Troponin I 07/12/18 04:40 WBC Hgb Hct Plt Count INR Sodium Potassium Chloride Carbon Dioxide BUN Creatinine Glucose Calcium Magnesium Total Bilirubin AST ALT Alkaline Phosphatase Troponin I 0.03 - Imaging Chest Xray: image reviewed Consult Discharge Plan - Plan Referrals: Anmol Langley Jr, MD [Primary Care Provider] -
--- NOTE | 2018-07-12 09:12 | Anesthesia Evaluation PreOp ---
Date of Encounter: 07/12/18 Time of Encounter: 09:09 - Past History Planned Operation: left thoracotomy with decortication Pulmonary History: Smoker, Other (acute on chronic resp failure on vent, loculated pleural effusion, pneumonia, hemoptysis) Other Medical History: Renal ([facility]) Alcohol Use: none Drug use: none Medications and Allergies No Known Home Drugs 07/11/18 [History] Allergy/AdvReac Type Severity Reaction Status Date / Time No Known Allergies Allergy Verified 07/11/18 16:11 - Meds/Allergy Pre-op Review Medications Reviewed: Yes Allergies Reviewed: Yes Beta Blockers on Current Med List: No Anesthesia Results - Labs 07/12/18 04:40 07/12/18 04:40 Anesthesia Exam Selected Entries 07/12/18 06:00 07/12/18 07:41 Temperature 97.8 F Pulse Rate 79 Respiratory Rate 18 Blood Pressure 110/67 O2 Sat by Pulse Oximetry 99 Fraction of Inspired Oxygen % 60 Oxygen Flow Rate (LPM) 10 Oxygen Delivery Method Mechanical Ventilation Weight: 61kg BMI 20 NPO (# of Hours): >8 - HEENT Mallampati: Intubated - ASBESTOS ABATEMENT TECHNICIAN LOC: Oriented [employer]BESTOS ABATEMENT TECHNICIAN Motor: Normal RUE, Normal LUE, Normal RLE, Normal LLE, Normal Face [employer]BE[employer] ABATEMENT TECHNICIAN Sensory: Normal: RUE, LUE, RLE, LLE, Face - Cardiac Rhythm: Regular Murmur: None - Pulmonary Breath Sounds: bilateral Clear Anesthesia Assess/Plan ASA Score: 3 Level of consciousness: Drowsy, but responsive to commands Anesthetic Plan: General Monitoring Plan: Standard Monitors Recovery Plan: ICU (spoke with patient and , they agree to GA)
[2018-07-12] MEDS ORDERED: *HR* Propofol 200 MG/20 ML VIAL IVP ONE (10:08)
[2018-07-12] MEDS ORDERED: *HR* FentaNYL (PF) 100 MCG/2 ML VIAL ONE (10:08)
[2018-07-12] MEDS ORDERED: *HR* Succinylcholine 200 MG/10 ML VIAL IVP ONE (10:17)
[2018-07-12] MEDS ORDERED: *HR* Rocuronium Bromide 50 MG/5 ML VIAL ONE (10:17)
[2018-07-12] MEDS ORDERED: Ondansetron 4 MG/2 ML VIAL ONE (10:17)
[2018-07-12] MEDS ORDERED: Lidocaine -MPF 2% 2 ML VIAL ONE (10:17)
[2018-07-12] MEDS ORDERED: Dexamethasone 4 MG/ML VIAL ONE (10:17)
[2018-07-12] MEDS ORDERED: *HR* HYDROMORPHONE 2 MG/ML VIAL ONE (11:00)
[2018-07-12] MEDS ORDERED: *HR* Midazolam HCl 2 MG/2 ML VIAL ONE (11:01)
[2018-07-12] MEDS ORDERED: KETAMINE HCL 50 MG/ML SYRINGE IV ONE (11:03)
[2018-07-12] MEDS ORDERED: SUGAMMADEX SODIUM 500 MG/5 ML VIAL IV ONE (11:04)
[2018-07-12] MEDS ORDERED: Albumin Human 5% 25.0 GM/500 ML VIAL ONE (11:39)
--- NOTE | 2018-07-12 12:44 | Operative Note ---
Date of procedure: 07/12/18 Pre-op diagnosis: pneumonia, hemothorax Post-op diagnosis: other (pneumonia with abscess, empyema) Procedure: bronchoscopy with aspiration, left thoracotomy decorication and pleurectomy Complications: none Anesthesia: GETA Local Anesthetics: 0.5% Sensorcaine HCL SubQ (cc) Surgeon: Dewayne Swann Was there an speech language pathologist assistant present: No Estimated blood loss (cc): 50 Specimen: pleural peal Condition: stable Disposition: ICU Procedure in Detail: The patient was brought to the operating room and placed on the operating room table in the supine position. After undergoing general anesthesia a bronchial jadon was placed by myself for single lung ventilation. The patient was then placed on the operating room table in the right lateral decubitus position with care to pad all pressure points. Pleurx catheter was removed. The patient was prepped and draped in the usual sterile fashion. A muscle sparing thoracotomy was made and the sixth intercostal space entered. A pleurectomy and decortication of the upper lower lobes diaphragm and major fissure performed. There was appreciable size abscess in the basilar segment of the left lower lobe that was found to have ruptured and contaminated the pleural space leaning to the empyema. 32-Sinhala chest tubes were placed in the posterior gutter over the dome of the diaphragm and anteriorly all through separate incisions and secured into place with #2 Ethibond sutures. The intercostal space closed with #1 Vicryl, the ausculatory triangle closed with a #1 Vicryl, and then a flat Duglas-Perez drain placed between the latissimus dorsi and serratus anterior muscles being secured into place with a #2-0 silk suture. Remaining incision was closed with 2 layers of 0 Vicryl and a 4-0 Monocryl subcuticular stitch with dressings consisting of Steri-Strips and sterile gauze. Patient was placed back on the operating room table in the position. A bronchoscopy with aspiration of the tracheobronchial tree performed and after removing thick amounts of copious tenacious secretions the tidal volumes increased from 300-700. Patient was taken to the intensive care unit.
[2018-07-12 14:00] LABS: Red Cell Distribution Width 16.4 % (11.5-14.5)
[2018-07-12 14:08] LABS: Hemoglobin 10.3 g/dL (11.5-15.4); Immature Granulocytes % 4.6 % (0-4); Lymphocytes # 1.3 K/mcL (0.6-4.6); Lymphocytes % 4.6 %; Mean Corpuscular HGB Conc 29.4 g/dL (31.6-35.5); Mean Corpuscular Hemoglobin 27.7 pg (28.0-33.3); Mean Corpuscular Volume 94.1 fL (83.0-100.0); Mean Platelet Volume 10.5 fL (9.4-12.4); Monocytes # 1.1 K/mcL (0.0-1.3); Monocytes % 3.9 %; Neutrophils # 24.8 K/mcL (1.6-8.9); Platelet Count 347 K/mcL (140-400); Red Blood Count 3.72 M/mcL (3.82-4.97); Segmented Neutrophils % 86.9 %
--- NOTE | 2018-07-12 23:17 | Electrocardiograph Report ---
[address] [address] Test Date: 2018-07-11 Pat Name: Corrie Randall Department: [id number] Room: [facility] Gender: F Electrical Products Sales Engineer: : 1960 Requested By: Froy Barahona Order Number: [id number] Reading MD: Franklin Toledo Measurements Intervals [place] Rate: 119 P: 81 ID: [id number] QRS: 87 QRSD: 90 T: 60 QT: 303 QTc: 427 Interpretive Statements Sinus tachycardia Biatrial enlargement Borderline right axis deviation Electronically Signed On 07-12-2018 23:16:02 EDT by Franklin Toledo
[2018-07-13] MEDS: 0.9 % Sodium Chloride 1,000 ML IVC SCH (00:34)
[2018-07-13] MEDS: Artificial Tears SOLN 15 ML BOTTLE BOTH EYES SCH ×5 (00:35→12:30)
[2018-07-13] MEDS: Piperacillin/Tazobactam 3.375 GM in 0.9 % Sodium Chloride Mini Bag 100 ML IVPB SCH ×2 (00:37→07:51)
[2018-07-13] MEDS: methylPREDNISolone 125 MG/2 ML VIAL IVP SCH ×4 (00:37→23:41)
[2018-07-13 05:07] LABS: ABG Base Excess 1 mEq/L (-2 to 3); ABG HCO3 27 mEq/L (21-27); ABG Oxygen Saturation 98 % (95-98); ABG PCO2 54 mmHg (35-45); ABG PH 7.32 pH Units (7.32-7.45); ABG PO2 112 mmHg (85-104); ABG TCO2 29 mEq/L (20-26); Blood Gas Modality VC; Blood Gas PEEP 5 cm H2O; Blood Gas Respiration Rate 18; Blood Gas VT 450 cc
[2018-07-13] MEDS: Pantoprazole 40 MG VIAL IVP SCH (07:51)
[2018-07-13] MEDS: Chlorhexidine Rinse 15 ML MOUTHWASH MM SCH ×2 (07:51→20:09)
[2018-07-13 08:13] LABS: Basophils # 0.1 K/mcL (0.0-0.2); Basophils % 0.6 %; Hematocrit 32.4 % (35.3-44.9); Hemoglobin 10.3 g/dL (11.5-15.4); Immature Granulocytes % 4.5 % (0-4); Lymphocytes % 7.5 %; Mean Corpuscular HGB Conc 31.8 g/dL (31.6-35.5); Mean Corpuscular Hemoglobin 28.3 pg (28.0-33.3); Mean Platelet Volume 10.6 fL (9.4-12.4); Monocytes # 0.7 K/mcL (0.0-1.3); Platelet Count 336 K/mcL (140-400); Red Blood Count 3.64 M/mcL (3.82-4.97); Red Cell Distribution Width 16.3 % (11.5-14.5); Segmented Neutrophils % 82.4 %
--- NOTE | 2018-07-13 08:45 | Cardiothoracic Progress Note ---
Date of Encounter: 07/13/18 Time of Encounter: 08:43 - Assessment and plan (1) Hemothorax on left Current Visit: Yes Status: Acute The assessment and plan as outlined above was discussed with the patient and/or family members who expressed understanding and agreement. All questions were answered. continue chest tubes to suction (2) Acute kidney injury Current Visit: Yes Status: Acute The assessment and plan as outlined above was discussed with the patient and/or family members who expressed understanding and agreement. All questions were answered. outputs improved and bp very good. labs pending (3) Acute and chronic respiratory failure with hypoxia Current Visit: Yes Status: Acute The assessment and plan as outlined above was discussed with the patient and/or family members who expressed understanding and agreement. All questions were answered. ordered chest xray. less oxygen support today - Subjective Interval history: updated Vital Signs, Last 4 Hours Temp Pulse Resp BP Pulse Ox 07/13/18 08:00 107 15 134/85 97 07/13/18 07:29 22 129/82 96 07/13/18 07:00 110 20 129/82 97 07/13/18 06:44 99.5 F 07/13/18 06:00 100 21 119/78 98 07/13/18 05:13 18 128/83 96 07/13/18 05:00 104 18 128/83 100 Oxgyen Flow Rate Oxygen Flow Rate (LPM) 10 Clinical Data, last 8 Hours Output, Chest Tube Drainage 60 Amount [Left Lateral Chest #2] Output, Chest Tube Drainage 30 Amount [Left Lateral Chest #2] Output, Chest Tube Drainage 26 Amount [Left Lateral Chest #1] Output, Chest Tube Drainage 5 Amount [Left Lateral Chest #1] Weight 07/11/18 07/12/18 07/13/18 23:59 23:59 23:59 Weight 59.829 kg 64.6 kg - Physical Examination HEENT: Atraumatic, Normocephaly Neck: No JVD Cardiac: Reg Rate and Rhythm, Normal S1 and S2 Incision: No signs of infection, Dry/intact dressing Chest tubes: Minimal drainage, Air leak Lungs: Other (less rhonchi compared to yesterday ) Neuro: Alert and responsive, No focal deficits noted - Labs 07/13/18 07:45 07/12/18 04:40 Lab Results, Last 24 hours 07/12/18 07/13/18 13:40 07:45 WBC 28.5 H 13.3 H D Hgb 10.3 L 10.3 L Hct 35.0 L 32.4 L Plt Count 347 336 Consult Discharge Plan - Plan Referrals: Anmol Langley Jr, MD [Primary Care Provider] -
--- NOTE | 2018-07-13 09:03 | Pulmonology Progress Note ---
<Mason Currie - Last Filed: 07/13/18 11:58> Date of Encounter: 07/13/18 Time of Encounter: 09:03 Assessment and Plan (1) Acute and chronic respiratory failure with hypoxia Current Visit: Yes Status: Acute Patient was found to have acute on chronic respiratory failure with an initial oxygen saturation in the 70s with EMS arrived. Patient placed on a nonrebreather oxygen mask upon arrival in the emergency department and her oxygen saturations have come up into the low 90s. Patient's chest x-ray shows evidence of pneumonia as well as likely pleural effusion. Patient the patient having hemoptysis, weight loss and worsening of her respiratory status as well as pneumonia and loculated pleural effusion there is concern that this could potentially be a malignancy. Patient remained intubated overnight however this morning she is awake and alert indicating that she would like the tube come out. We will plan to extubated the patient this morning. (2) Loculated pleural effusion Current Visit: Yes Status: Acute Patient has loculated pleural effusions on the left side. Patient was taken to the OR with cardiothoracic surgery. There was decortication that was performed as well as chest tube placement on the left. Was positive for gram possitive cocci likely streptococcus. We will switch the patient to ceftriaxone. (3) Pneumonia Current Visit: Yes Status: Acute Patient's chest x-ray is concerning for pneumonia as well as loculated pleural effusion. Patient was on zosyn but will be switched to rocephin.. We will continue to monitor the patient's respiratory status. Qualifiers: Pneumonia type: due to unspecified organism Laterality: left Lung location: unspecified part of lung Qualified Code(s): J18.9 - Pneumonia, unspecified organism (4) Leukocytosis Current Visit: Yes Status: Acute Patient has a leukocytosis of 13.3. This is significant improvement. This is likely secondary to the patient's pneumonia and potential loculated pleural effusion. Patient was on zosyn but will be switched to ceftriaxone. We will continue to monitor the patients WBC. Qualifiers: Leukocytosis type: unspecified Qualified Code(s): D72.829 - Elevated white blood cell count, unspecified (5) Acute kidney injury Current Visit: Yes Status: Acute Patient appears to have an acute kidney injury. Her acute kidney injury is improving. Her most recent creatinine is 1.15 from 2.31. We will continue to monitor the patient's renal function and urine output. (6) Hyperkalemia Current Visit: Yes Status: Acute Hyperkalemia has resolved. Patient has a potassium of 4.0 this morning. (7) Hemoptysis Current Visit: Yes Status: Acute Patient had reported hemoptysis approximately a tablespoon at a time on 2 separate occasions. Bronchoscopy did not show any airway lesions that showed any signs of bleeding. (8) Hypoxia Current Visit: Yes Status: Acute Patients respiratory status has been improving. Patient was able to be extubated this morning to bipap and has been tolerating that well. (9) Hypotension Current Visit: Yes Status: Acute Patient had a couple of blood pressure readings in the emergency department that were in the 90s. She was given IV hydration in the emergency department. We will continue with maintenance fluids here in the ICU. We will continue to monitor the patient's blood pressure. This time she does not require any vasopressor support. Patient's blood pressure this morning overnight was in the 120s to 130s. The patient's blood pressure has been stable and not requiring any acute intervention at this time. Qualifiers: Hypotension type: unspecified hypotension type Qualified Code(s): I95.9 - Hypotension, unspecified (10) DVT prophylaxis Current Visit: Yes Status: Acute Patient will be started on heparin 5000 units subcutaneous every 8 hours for DVT prophylaxis. Subjective Principal diagnosis: Acute on chronic respiratory failure Interval history: This morning upon my exam the patient was awake and upon discussion and asked her if she is ready to have the endotracheal tube removed she nodded her head yes and was following all commands. The patient was extubated. Patient was placed on BiPAP and has been tolerating this well. Patient was able to drink a small amount of water without issue. Patient states that she is feeling much better at this time. Objective PUL Vital signs: Last Vital Signs Temp 99.5 F 07/13/18 06:44 Pulse 107 07/13/18 08:00 Resp 15 07/13/18 08:00 BP 134/85 07/13/18 08:00 Pulse Ox 97 07/13/18 08:00 General appearance: other (On initial exam the patient was intubated but resting comfortably in the bed. She indicated that she wanted the tube to come out.) Eyes: nonicteric ENT: oropharynx moist Neck: supple Effort: normal Auscultation: bilateral: other (Course breath sounds bilaterally.) Cardiovascular: regular rate and rhythm Gastrointestinal: normoactive bowel sounds, soft, non-tender, non-distended Extremities: no edema, pink and warm Musculoskeletal: no deformities normal mental status, non-focal exam mood appropriate, affect normal Ventilator Settings Ventilator Settings: Ventilator Settings, Last 8 Hours Ventilator Tidal Volume 450 Setting Ventilator Tidal Volume 450 Setting Ventilator Tidal Volume 450 Setting Ventilator Tidal Volume 480 Setting Ventilator Tidal Volume 450 Setting Ventilator Tidal Volume 450 Setting Ventilator Tidal Volume 450 Setting Ventilator Respiratory Rate 18 Setting Ventilator Respiratory Rate 18 Setting Ventilator Respiratory Rate 18 Setting Ventilator Respiratory Rate 18 Setting Ventilator Respiratory Rate 18 Setting Ventilator Respiratory Rate 18 Setting Ventilator Respiratory Rate 18 Setting Actual Respiratory Rate 19 Actual Respiratory Rate 18 Actual Respiratory Rate 18 Positive End Expiratory 5 Pressure Positive End Expiratory 5 Pressure Positive End Expiratory 5 Pressure Positive End Expiratory 5 Pressure Positive End Expiratory 5 Pressure Positive End Expiratory 5 Pressure Positive End Expiratory 5 Pressure Peak Inspiratory Airway 17 Pressure Peak Inspiratory Airway 24 Pressure Peak Inspiratory Airway 25 Pressure Peak Inspiratory Airway 25 Pressure Peak Inspiratory Airway 29 Pressure Peak Inspiratory Airway 26 Pressure Results - Laboratory Findings CBC and BMP: 07/13/18 07:45 07/13/18 10:01 ABG ABG pH 7.32 pH Units (7.32-7.45) 07/13/18 05:04 ABG pCO2 54 mmHg (35-45) H 07/13/18 05:04 ABG pO2 112 mmHg (85-104) H 07/13/18 05:04 ABG O2 Saturation 98 % (95-98) 07/13/18 05:04 PT/INR, D-dimer PT 13.7 Seconds (9.4-12.1) H 07/12/18 04:40 Abnormal lab findings: Abnormal lab results WBC 13.3 K/mcL (4.3-11.1) H D 07/13/18 07:45 RBC 3.64 M/mcL (3.82-4.97) L 07/13/18 07:45 Hgb 10.3 g/dL (11.5-15.4) L 07/13/18 07:45 Hct 32.4 % (35.3-44.9) L 07/13/18 07:45 RDW 16.3 % (11.5-14.5) H 07/13/18 07:45 Immature Gran % 4.5 % (0-4) H 07/13/18 07:45 Neutrophils # 11.0 K/mcL (1.6-8.9) H 07/13/18 07:45 PT 13.7 Seconds (9.4-12.1) H 07/12/18 04:40 ABG pCO2 54 mmHg (35-45) H 07/13/18 05:04 ABG pO2 112 mmHg (85-104) H 07/13/18 05:04 ABG Total CO2 29 mEq/L (20-26) H 07/13/18 05:04 VBG pH 7.23 pH Units (7.32-7.42) L 07/11/18 17:48 BUN 71 mg/dL (8-23) H 07/12/18 04:40 Creatinine 2.31 mg/dL (0.60-1.20) H 07/12/18 04:40 Est GFR ( Amer) 26 (> 60) L 07/12/18 04:40 Est GFR (Non-Af Amer) 22 (> 60) L 07/12/18 04:40 BUN/Creatinine Ratio 31 (6-26) H 07/12/18 04:40 POC Glucose 145 mg/dL (70-99) H 07/13/18 00:05 Calculated Osmolality 311 (280-300) H 07/12/18 04:40 Calcium 7.8 mg/dL (8.6-10.3) L 07/12/18 04:40 Venous Ioniz Calcium 0.93 mmol/L (1.15-1.35) L 07/11/18 17:48 Phosphorus 5.5 mg/dL (2.7-4.5) H 07/11/18 17:25 Alkaline Phosphatase 125 Units/L (34-104) H 07/12/18 04:40 Serum Total Protein 5.7 g/dL (6.4-8.9) L 07/12/18 04:40 Albumin 2.4 g/dL (3.5-5.7) L 07/12/18 04:40 Albumin/Globulin Ratio 0.7 (1.1-2.2) L 07/12/18 04:40 Pleural Appearance Bloody (Clear) A 07/11/18 15:50 - Microbiology Findings Microbiology Findings: Microbiology, Last 48 Hours 07/11/18 15:50 Body Fluid Culture - Preliminary Pleural Fluid Gram Positive Cocci 07/11/18 Unknown Respiratory Culture - Preliminary Left Lower Lobe Lung 07/11/18 15:50 Gram Stain - Final Pleural Fluid 07/11/18 16:07 Blood Culture - Preliminary Peripheral Venipuncture Culture is incubating and being continuously monitored for growth. Final report to follow. 07/11/18 16:07 Blood Culture - Preliminary Peripheral Venipuncture Culture is incubating and being continuously monitored for growth. Final report to follow. - Clinical Findings Intake & Output: Intake & Output 07/12/18 07/13/18 07/13/18 23:59 07:59 15:59 Intake Total 403 / 403 1335 / 1335 Output Total 669 / 669 791 / 791 Balance -266 / -266 544 / 544 Weight 64.6 kg Consult Discharge Plan - Plan Referrals: Anmol Langley Jr, MD [Primary Care Provider] - <Tolu Chaney W - Last Filed: 07/13/18 14:59> Date of Encounter: 07/13/18 Objective PUL Vital signs: Last Vital Signs Temp 98.3 F 07/13/18 12:00 Pulse 115 07/13/18 14:00 Resp 24 07/13/18 14:00 BP 142/83 07/13/18 14:00 Pulse Ox 94 07/13/18 14:00 Ventilator Settings Ventilator Settings: Ventilator Settings, Last 8 Hours Ventilator Tidal Volume 450 Setting Ventilator Respiratory Rate 18 Setting Actual Respiratory Rate 19 Positive End Expiratory 5 Pressure Peak Inspiratory Airway 17 Pressure Results - Laboratory Findings CBC and BMP: 07/13/18 07:45 07/13/18 10:01 ABG ABG pH 7.32 pH Units (7.32-7.45) 07/13/18 05:04 ABG pCO2 54 mmHg (35-45) H 07/13/18 05:04 ABG pO2 112 mmHg (85-104) H 07/13/18 05:04 ABG O2 Saturation 98 % (95-98) 07/13/18 05:04 PT/INR, D-dimer PT 13.7 Seconds (9.4-12.1) H 07/12/18 04:40 Abnormal lab findings: Abnormal lab results WBC 13.3 K/mcL (4.3-11.1) H D 07/13/18 07:45 RBC 3.64 M/mcL (3.82-4.97) L 07/13/18 07:45 Hgb 10.3 g/dL (11.5-15.4) L 07/13/18 07:45 Hct 32.4 % (35.3-44.9) L 07/13/18 07:45 RDW 16.3 % (11.5-14.5) H 07/13/18 07:45 Immature Gran % 4.5 % (0-4) H 07/13/18 07:45 Neutrophils # 11.0 K/mcL (1.6-8.9) H 07/13/18 07:45 PT 13.7 Seconds (9.4-12.1) H 07/12/18 04:40 ABG pCO2 54 mmHg (35-45) H 07/13/18 05:04 ABG pO2 112 mmHg (85-104) H 07/13/18 05:04 ABG Total CO2 29 mEq/L (20-26) H 07/13/18 05:04 VBG pH 7.23 pH Units (7.32-7.42) L 07/11/18 17:48 Chloride 109 mEq/L (98-107) H 07/13/18 10:01 BUN 54 mg/dL (8-23) H 07/13/18 10:01 Est GFR ( Amer) 58 (> 60) L 07/13/18 10:01 Est GFR (Non-Af Amer) 48 (> 60) L 07/13/18 10:01 BUN/Creatinine Ratio 47 (6-26) H 07/13/18 10:01 Glucose 158 mg/dL (70-105) H 07/13/18 10:01 POC Glucose 140 mg/dL (70-99) H 07/13/18 10:33 Calculated Osmolality 316 (280-300) H 07/13/18 10:01 Venous Ioniz Calcium 0.93 mmol/L (1.15-1.35) L 07/11/18 17:48 Phosphorus 5.5 mg/dL (2.7-4.5) H 07/11/18 17:25 Serum Total Protein 5.9 g/dL (6.4-8.9) L 07/13/18 10:01 Albumin 2.8 g/dL (3.5-5.7) L 07/13/18 10:01 Albumin/Globulin Ratio 0.9 (1.1-2.2) L 07/13/18 10:01 Pleural Appearance Bloody (Clear) A 07/11/18 15:50 - Microbiology Findings Microbiology Findings: Microbiology, Last 48 Hours 07/11/18 Unknown Respiratory Culture - Preliminary Left Lower Lobe Lung 07/11/18 Unknown Acid Fast Stain - Final Left Lower Lobe Lung 07/11/18 15:50 Body Fluid Culture - Preliminary Pleural Fluid Gram Positive Cocci 07/11/18 15:50 Gram Stain - Final Pleural Fluid 07/11/18 16:07 Blood Culture - Preliminary Peripheral Venipuncture Culture is incubating and being continuously monitored for growth. Final report to follow. 07/11/18 16:07 Blood Culture - Preliminary Peripheral Venipuncture Culture is incubating and being continuously monitored for growth. Final report to follow. - Clinical Findings Intake & Output: Intake & Output 07/12/18 07/13/18 07/13/18 23:59 07:59 15:59 Intake Total 403 / 403 1335 / 1335 1025 / 1025 Output Total 669 / 669 791 / 791 366 / 366 Balance -266 / -266 544 / 544 659 / 659 Weight 64.6 kg - Attending Attestation I examined this patient and my medical decision-making was reviewed with the Resident Physician. I agree with the documented findings, disposition and treatment plan as described except to the extent set forth below. We indep endently had [id number] contact with the patient Patient seen and examined at bedside Labs, radiology, chart personally reviewed. Management was reviewed during multidisciplinary critical care rounds. LADLE POURER: Patient has awake and alert and following commands Pulm: Acute hypoxic hypercapnic respiratory failure on the vent acceptable gas exchange is postop day 1 status post decortication for empyema plan for spontaneous breathing trial and liberation to BiPAP continue to treat for COPD exacerbation Cards: Hemodynamically stable overnight GI: GI prophylaxis while on vent Nutrition: Nothing by mouth for now Renal: KOSTAS improving UOP Monitored, Cont to Trend sCr and monitor Electrolytes. ID: Appears to have strep empyema de-escalate antibiotics to ceftriaxone Heme/Onc: DVT prophylaxis given Endo: Glucose Monitored Integ/MSK: Skin Care per routine ICU Nursing Protocol to prevent ulcers. Lines: All lines examined without evidence of infection : Dispo: Continue to monitor In ICU CODE: Full updated at bedside
[2018-07-13 10:33] LABS: Albumin 2.8 g/dL (3.5-5.7); Albumin/Globulin Ratio 0.9 (1.1-2.2); Bilirubin,Direct 0.1 mg/dL (0.0-0.2); Bilirubin,Indirect 0.2 mg/dL (0.0-1.2); Bilirubin,Total 0.3 mg/dL (0.3-1.0); Calcium 8.7 mg/dL (8.6-10.3); Globulin 3.1 g/dL (2.4-3.5); Magnesium 1.7 mg/dL (1.6-2.6); Total Protein 5.9 g/dL (6.4-8.9)
[2018-07-13] MEDS ORDERED: cefTRIAXone 2,000 MG in Water for inj. (sterile) 20 ML 20 ML IVP SCH (12:00)
[2018-07-13] MEDS: *HR* Heparin 5,000 UNIT/ML VIAL SQ SCH ×2 (13:31→22:31)
[2018-07-13] MEDS: Ketorolac 15 MG/ML VIAL IVP PRN (20:08)
[2018-07-14] MEDS ORDERED: Ketorolac 15 MG/ML VIAL ONE (02:10)
[2018-07-14] MEDS ORDERED: *HR* Heparin 5,000 UNIT/ML VIAL ONE (06:00)
[2018-07-14] MEDS: *HR* Heparin 5,000 UNIT/ML VIAL SQ SCH ×3 (07:15→21:07)
[2018-07-14] MEDS: methylPREDNISolone 125 MG/2 ML VIAL IVP SCH (07:26)
[2018-07-14] MEDS: Pantoprazole 40 MG VIAL IVP SCH (07:26)
[2018-07-14] MEDS: Chlorhexidine Rinse 15 ML MOUTHWASH MM SCH (07:26)
[2018-07-14 07:42] LABS: Alanine Aminotransferase 13 Units/L (7-52); Albumin 2.6 g/dL (3.5-5.7); Albumin/Globulin Ratio 0.9 (1.1-2.2); Alkaline Phosphatase 78 Units/L (34-104); Aspartate Amino Transferase 15 Units/L (13-39); BUN/Creatinine Ratio 63 (6-26); Bilirubin,Indirect 0.3 mg/dL (0.0-1.2); Bilirubin,Total 0.3 mg/dL (0.3-1.0); Blood Urea Nitrogen 48 mg/dL (8-23); Calcium 8.8 mg/dL (8.6-10.3); Carbon Dioxide 28 mEq/L (23-29); Chloride 105 mEq/L (98-107); Globulin 2.8 g/dL (2.4-3.5); Glucose 122 mg/dL (70-105); Osmolality,Calculated 306 (280-300); Potassium 4.6 mEq/L (3.5-5.1); Sodium 141 mEq/L (136-145); Total Protein 5.4 g/dL (6.4-8.9); eGFR For Non-African Americans > 60 (> 60)
--- NOTE | 2018-07-14 08:00 | Pulmonology Progress Note ---
Date of Encounter: 07/14/18 Time of Encounter: 08:00 Assessment and Plan (1) Acute and chronic respiratory failure with hypoxia Current Visit: Yes Status: Acute Successfully liberated from the vent 24 hours she doing well and nasal cannula and will need walking pulse oximetry prior to discharge (2) Empyema lung Current Visit: Yes Status: Acute This appears to be secondary to strep Continue ceftriaxone will likely need to 6 weeks antimicrobial coverage consider infectious disease consult on Monday to establish care repeat CT scan in 3-4 weeks Chest tube management per CTS (3) COPD exacerbation Current Visit: Yes Status: Acute Transition to oral glucocorticoids to complete two-week taper continue Symbicort continue bronchodilators outpatient pulmonary follow-up (4) Poor nutrition Current Visit: Yes Status: Acute Nutrition's been consulted recommend supplementation of diet (5) Tobacco abuse Current Visit: Yes Status: Acute Tobacco cessation counseling given Stable for transfer to [facility] for ongoing care report called to the accepting hospitalist Dr. Stone Subjective Principal diagnosis: Acute on chronic respiratory failure Interval history: Was moved to the [facility] overnight has been doing well she sitting up in bed eating breakfast today says that she feels like she is getting stronger she has one chest tube that remains to suction Objective PUL Vital signs: Last Vital Signs Temp 98.2 F 07/13/18 22:15 Pulse 94 07/13/18 22:15 Resp 18 07/14/18 00:37 BP 137/87 07/14/18 00:37 Pulse Ox 90 07/14/18 00:37 General appearance: no acute distress Eyes: nonicteric Neck: supple Auscultation: left: other (Chest tube noted with air leak), bilateral: wheezes, rhonchi Cardiovascular: regular rate and rhythm Gastrointestinal: normoactive bowel sounds Integumentary: normal Extremities: edema Musculoskeletal: no deformities normal mental status, non-focal exam mood appropriate Results - Laboratory Findings CBC and BMP: 07/14/18 04:00 07/14/18 04:00 ABG ABG pH 7.32 pH Units (7.32-7.45) 07/13/18 05:04 ABG pCO2 54 mmHg (35-45) H 07/13/18 05:04 ABG pO2 112 mmHg (85-104) H 07/13/18 05:04 ABG O2 Saturation 98 % (95-98) 07/13/18 05:04 PT/INR, D-dimer PT 13.7 Seconds (9.4-12.1) H 07/12/18 04:40 Abnormal lab findings: Abnormal lab results WBC 13.3 K/mcL (4.3-11.1) H D 07/13/18 07:45 RBC 3.64 M/mcL (3.82-4.97) L 07/13/18 07:45 Hgb 10.3 g/dL (11.5-15.4) L 07/13/18 07:45 Hct 32.4 % (35.3-44.9) L 07/13/18 07:45 MCH 27.7 pg (28.0-33.3) L 07/12/18 13:40 MCHC 29.4 g/dL (31.6-35.5) L 07/12/18 13:40 RDW 16.3 % (11.5-14.5) H 07/13/18 07:45 Plt Count 405 K/mcL (140-400) H 07/12/18 04:40 Immature Gran % 4.5 % (0-4) H 07/13/18 07:45 11.0 K/mcL (1.6-8.9) H 07/13/18 07:45 2.3 K/mcL (0.0-1.3) H 07/11/18 12:43 PT 13.7 Seconds (9.4-12.1) H 07/12/18 04:40 ABG pH 7.30 pH Units (7.32-7.45) L 07/12/18 05:00 ABG pCO2 54 mmHg (35-45) H 07/13/18 05:04 ABG pO2 112 mmHg (85-104) H 07/13/18 05:04 ABG HCO3 30 mEq/L (21-27) H 07/11/18 21:43 ABG Total CO2 29 mEq/L (20-26) H 07/13/18 05:04 ABG O2 Saturation 93 % (95-98) L 07/12/18 05:00 VBG pH 7.23 pH Units (7.32-7.42) L 07/11/18 17:48 Sodium 134 mEq/L (136-145) L 07/11/18 17:25 Potassium 5.2 mEq/L (3.5-5.1) H 07/11/18 22:00 Chloride 109 mEq/L (98-107) H 07/13/18 10:01 BUN 48 mg/dL (8-23) H 07/14/18 04:00 2.31 mg/dL (0.60-1.20) H 07/12/18 04:40 Est GFR ( Amer) 58 (> 60) L 07/13/18 10:01 Est GFR (Non-Af Amer) 48 (> 60) L 07/13/18 10:01 63 (6-26) H 07/14/18 04:00 Glucose 122 mg/dL (70-105) H 07/14/18 04:00 POC Glucose 153 mg/dL (70-99) H 07/14/18 05:18 306 (280-300) H 07/14/18 04:00 Calcium 7.8 mg/dL (8.6-10.3) L 07/12/18 04:40 Venous Ioniz Calcium 0.93 mmol/L (1.15-1.35) L 07/11/18 17:48 Phosphorus 5.5 mg/dL (2.7-4.5) H 07/11/18 17:25 125 Units/L (34-104) H 07/12/18 04:40 5.4 g/dL (6.4-8.9) L 07/14/18 04:00 2.6 g/dL (3.5-5.7) L 07/14/18 04:00 4.3 g/dL (2.4-3.5) H 07/11/18 12:43 0.9 (1.1-2.2) L 07/14/18 04:00 Pleural Appearance Bloody (Clear) A 07/11/18 15:50 - Microbiology Findings Microbiology Findings: Microbiology, Last 48 Hours 07/11/18 Unknown Respiratory Culture - Preliminary Left Lower Lobe Lung 07/11/18 Unknown Acid Fast Stain - Final Left Lower Lobe Lung 07/11/18 15:50 Body Fluid Culture - Preliminary Pleural Fluid Gram Positive Cocci - Clinical Findings Intake & Output: Intake & Output 07/13/18 07/14/18 07/14/18 23:59 07:59 15:59 Intake Total 240 / 3080 Output Total 482 / 1844 Balance -242 / 1236 Weight 64.7 kg Consult Discharge Plan - Plan Referrals: Anmol Langley Jr, MD [Primary Care Provider] -
[2018-07-14] MEDS ORDERED: *HR* HYDROcodone/Acet 5/325 mg TABLET PO PRN (08:44)
--- NOTE | 2018-07-14 08:48 | Cardiothoracic Progress Note ---
Date of Encounter: 07/14/18 Time of Encounter: 08:45 - Assessment and plan (1) Hemothorax on left Current Visit: Yes Status: Acute The assessment and plan as outlined above was discussed with the patient and/or family members who expressed understanding and agreement. All questions were answered. continue chest tubes to suction removed gisela and 1 chest tube change protonix to po wean steroids. rounded with nurse. (2) Acute kidney injury Current Visit: Yes Status: Acute The assessment and plan as outlined above was discussed with the patient and/or family members who expressed understanding and agreement. All questions were answered. resolved (3) Acute and chronic respiratory failure with hypoxia Current Visit: Yes Status: Acute The assessment and plan as outlined above was discussed with the patient and/or family members who expressed understanding and agreement. All questions were answered. less oxygen support today - Subjective Interval history: no complaints Vital Signs, Last 4 Hours Temp Pulse Resp BP Pulse Ox 07/14/18 07:57 97.9 F 112 18 131/88 90 Oxgyen Flow Rate Oxygen Flow Rate (LPM) 6 Weight 07/12/18 07/13/18 07/14/18 23:59 23:59 23:59 Weight 64.6 kg 64.7 kg - Physical Examination General: Conversant, No Apparent Distress HEENT: Atraumatic, Normocephaly Neck: No JVD Cardiac: Reg Rate and Rhythm, Normal S1 and S2 Incision: No signs of infection, Dry/intact dressing, Open to air Chest tubes: Minimal drainage, Air leak, Crepitus Lungs: Other (wheezing and rhonchi but less than the 1st day i meet the patient. ) Neuro: Alert and responsive, No focal deficits noted, Cranial nerves intact, Motor nerves intact Vascular: Normal capillary refill, Vascular compromise Abdomen: Soft, Non-tender, Other (bm this am ) - Labs 07/13/18 07:45 07/14/18 04:00 Lab Results, Last 24 hours 07/13/18 07/14/18 10:01 04:00 Sodium 144 141 Potassium 4.0 4.6 Chloride 109 H 105 Carbon Dioxide 26 28 BUN 54 H 48 H Creatinine 1.15 0.76 Glucose 158 H 122 H Calcium 8.7 8.8 Magnesium 1.7 Total Bilirubin 0.3 0.3 AST 16 15 ALT 11 13 Alkaline Phosphatase 95 78 - Imaging Chest Xray: image reviewed Consult Discharge Plan - Plan Referrals: Anmol Langley Jr, MD [Primary Care Provider] -
[2018-07-14 08:52] LABS: Basophils # 0.1 K/mcL (0.0-0.2); Basophils % 0.6 %; Hemoglobin 9.5 g/dL (11.5-15.4); Immature Granulocytes % 3.9 % (0-4); Lymphocytes # 1.2 K/mcL (0.6-4.6); Lymphocytes % 10.6 %; Mean Corpuscular HGB Conc 30.6 g/dL (31.6-35.5); Mean Corpuscular Hemoglobin 27.8 pg (28.0-33.3); Mean Corpuscular Volume 90.6 fL (83.0-100.0); Mean Platelet Volume 10.5 fL (9.4-12.4); Monocytes # 0.5 K/mcL (0.0-1.3); Monocytes % 4.2 %; Neutrophils # 9.3 K/mcL (1.6-8.9); Platelet Count 326 K/mcL (140-400); Red Blood Count 3.42 M/mcL (3.82-4.97); Red Cell Distribution Width 16.4 % (11.5-14.5); Segmented Neutrophils % 80.7 %
[2018-07-14] MEDS ORDERED: Famotidine 20 MG TABLET PO SCH (09:00)
[2018-07-14] MEDS: Ketorolac 15 MG/ML VIAL IVP PRN (09:16)
--- NOTE | 2018-07-14 11:10 | Internal Med Progress Note ---
Hospitalist Progress Note - Encounter Date of Encounter: 07/14/18 Time of Encounter: 09:45 - Subjective Interval History: Hospital course reviewed. Patient with history of tobacco abuse was admitted on 07/11 due to acute hypoxic respiratory failure secondary to pneumonia complicated by left-sided loculated effusion, severe sepsis with KOSTAS, and presumed COPD exacerbation. Required intubation x 2 and was successfully extubated on 07/13. Also underwent left thoracotomy, decortication, and pleurectomy on 07/12 by cardiothoracic surgery. Pleural fluid culture is growing gram-positive cocci with preliminary report to be Streptococcus and patient remains on IV Rocephin. Patient today reports improvement in her breathing and denies any significant sputum production or difficulty in expectorating. - Exam Vitals: Temp Pulse Resp BP Pulse Ox 97.9 F 112 18 131/88 90 07/14/18 07:57 07/14/18 07:57 07/14/18 07:57 07/14/18 07:57 07/14/18 07:57 Exam: General appearance: Alert and oriented 3, not in distress Respiratory: coarse breath sounds bilaterally with rhonchi and minimal wheezes. Left chest tube in-situ Cardiovascular: regular rate and rhythm, borderline tachycardia, no murmur Gastrointestinal: soft, non-tender, non-distended Extremities: no edema, pink and warm - Assessment and Plan (1) Acute and chronic respiratory failure with hypoxia Current Visit: Yes Status: Acute Assessment and Plan: Secondary to pneumonia complicated by left loculated pleural effusion s/p left thoracotomy decortication and pleurectomy on 07/12. Chest tube management per thoracic surgery Pleural fluid culture growing GPC presumed to be strep, on IV Garth D2 after 2 days of zosyn/zithro Cytology negative for malignancy, surgical pathology pending Currently saturating 92% on 5 L of oxygen, wean as tolerated. BiPAP when necessary Taper steroids, continue bronchodilators follow with pulmonary. (2) Severe sepsis Current Visit: Yes Status: Resolved Assessment and Plan: Presented with leukocytosis, tachycardia, tachypnea with pulmonary source of infection Associated with KOSTAS which now resolved blood culture NGTD, abx as above (3) Acute kidney injury Current Visit: Yes Status: Resolved Assessment and Plan: Secondary to sepsis as above, resolved (4) Pneumonia Current Visit: Yes Status: Acute Assessment and Plan: see #1 BAL growing GPC, likely strep. On IV Garth (5) Loculated pleural effusion Current Visit: Yes Status: Acute Assessment and Plan: s/p op as per #1. Appreciate CTS input (6) DVT prophylaxis Current Visit: Yes Status: Acute Assessment and Plan: SQ heparin - Time Spent with Patient Total time spent is greater than 50% in coordination of care (as documented) at patient's floor/unit and/or counseling patient: 25 - 35 minutes Plan of Care Discussed with: patient Internal Medicine: Result - Labs CBC & Chem 7: 07/14/18 04:00 07/14/18 04:00 Labs: Short CBC 07/14/18 Range/Units 04:00 WBC 11.5 H (4.3-11.1) K/mcL Hgb 9.5 L (11.5-15.4) g/dL Hct 31.0 L (35.3-44.9) % Plt Count 326 (140-400) K/mcL Neutrophils # 9.3 H (1.6-8.9) K/mcL BMP 07/14/18 04:00 Sodium 141 Potassium 4.6 Chloride 105 Carbon Dioxide 28 BUN 48 H Creatinine 0.76 Glucose 122 H Calcium 8.8 Liver Function 07/14/18 Range/Units 04:00 Total Bilirubin 0.3 (0.3-1.0) mg/dL Direct Bilirubin 0.0 (0.0-0.2) mg/dL AST 15 (13-39) Units/L ALT 13 (7-52) Units/L Alkaline Phosphatase 78 (34-104) Units/L Albumin 2.6 L (3.5-5.7) g/dL - ABG Interpretation ABG results: ABG ABG pH 7.32 pH Units (7.32-7.45) 07/13/18 05:04 ABG pCO2 54 mmHg (35-45) H 07/13/18 05:04 ABG pO2 112 mmHg (85-104) H 07/13/18 05:04 ABG O2 Saturation 98 % (95-98) 07/13/18 05:04 PT/INR, D-dimer PT 13.7 Seconds (9.4-12.1) H 07/12/18 04:40 - Impressions Impressions Chest X-Ray 07/13/18 08:39 IMPRESSION: 1. Lines and tubes as described. 2. Interval appearance of a small left pneumothorax, most prominent in the base. No evidence of tension. 3. Left base opacity. 4. COPD. D/ / 07/13/2018 09:09:30 Maira Damian MD / [facility] Interpreting Provider: Maira Damian MD Chest X-Ray 07/14/18 08:39 IMPRESSION: 1. Small left pneumothorax. 2. Stable small volume subcutaneous emphysema along the left chest wall. 3. Volume loss within the left lower lobe without significant residual pleural effusion evident. D/ / 07/14/2018 07:37:22 Tito Gifford MD / [facility] Interpreting Provider: Tito Gifford MD Consult Discharge Plan - Plan Referrals: Anmol Langley Jr, MD [Primary Care Provider] - (4) Pneumonia Qualifiers: Pneumonia type: due to unspecified organism Laterality: left Lung location: unspecified part of lung Qualified Code(s): J18.9 - Pneumonia, unspecified organism
[2018-07-14] MEDS ORDERED: Ipratropium/Albuterol Neb 3 ML IH PRN (11:47)
[2018-07-14] MEDS: cefTRIAXone 2,000 MG in Water for inj. (sterile) 20 ML 20 ML IVP SCH (12:33)
[2018-07-14] MEDS ORDERED: Loperamide 1 MG/5 ML UDC PO PRN (14:14)
[2018-07-14 14:49] LABS: Influenza A PCR Body Fluid NOT DETECTED; Influenza B PCR Body Fluid NOT DETECTED; RVP Body Fluid Source BAL
[2018-07-14 15:35] LABS: HSV Source BAL
[2018-07-14] MEDS ORDERED: MethylPREDNISolone 40 MG/ML VIAL IVP SCH (16:00)
--- NOTE | 2018-07-14 17:38 | Electrocardiograph Report ---
[address] [address] Test Date: 2018-07-12 Pat Name: Corrie Randall Department: 109 Room: 2N12 Gender: F Family Assistant: CLARK : 1960 Requested By: Tolu Chaney Order Number: [id number] Reading MD: Keturah Hernandez Measurements Intervals [place] Rate: 105 P: 95 MD: 164 QRS: 86 QRSD: 90 T: 43 QT: 354 QTc: 415 Interpretive Statements SINUS TACHYCARDIA WITH FREQUENT SUPRAVENTRICULAR PREMATURE COMPLEXES POSSIBLE BIATRIAL ENLARGEMENT NONSPECIFIC ST-T ABNORMALITY Electronically Signed On 07-14-2018 17:37:04 EDT by Keturah Hernandez
[2018-07-14] MEDS: *HR* HYDROcodone/Acet 5/325 mg TABLET PO PRN (18:42)
[2018-07-14] MEDS: Famotidine 20 MG TABLET PO SCH (21:10)
[2018-07-15 03:56] LABS: Basophils # 0.1 K/mcL (0.0-0.2); Basophils % 0.6 %; Eosinophils % 0.3 %; Hemoglobin 10.2 g/dL (11.5-15.4); Immature Granulocytes % 3.2 % (0-4); Lymphocytes # 1.8 K/mcL (0.6-4.6); Lymphocytes % 12.8 %; Mean Corpuscular HGB Conc 30.9 g/dL (31.6-35.5); Mean Corpuscular Hemoglobin 27.9 pg (28.0-33.3); Mean Corpuscular Volume 90.2 fL (83.0-100.0); Mean Platelet Volume 9.9 fL (9.4-12.4); Monocytes # 1.3 K/mcL (0.0-1.3); Neutrophils # 10.2 K/mcL (1.6-8.9); Nucleated Red Blood Cells 0.1 /100 WBC (0); Platelet Count 370 K/mcL (140-400); Red Blood Count 3.66 M/mcL (3.82-4.97); Red Cell Distribution Width 15.9 % (11.5-14.5); Segmented Neutrophils % 74.1 %
[2018-07-15 04:13] LABS: BUN/Creatinine Ratio 70 (6-26); Blood Urea Nitrogen 35 mg/dL (8-23); Calcium 8.6 mg/dL (8.6-10.3); Carbon Dioxide 33 mEq/L (23-29); Chloride 105 mEq/L (98-107); Glucose 92 mg/dL (70-105); Osmolality,Calculated 302 (280-300); Potassium 3.9 mEq/L (3.5-5.1); Sodium 142 mEq/L (136-145); eGFR For Non-African Americans > 60 (> 60)
[2018-07-15] MEDS: *HR* Heparin 5,000 UNIT/ML VIAL SQ SCH ×3 (05:20→21:59)
[2018-07-15] MEDS: *HR* HYDROcodone/Acet 5/325 mg TABLET PO PRN (05:22)
[2018-07-15] MEDS: Famotidine 20 MG TABLET PO SCH ×2 (07:23→21:59)
[2018-07-15] MEDS: predniSONE 20 MG TABLET PO SCH (07:23)
[2018-07-15] MEDS ORDERED: *HR* LORazepam 2 MG/ML VIAL IVP ONE (08:59)
--- NOTE | 2018-07-15 09:29 | Cardiothoracic Progress Note ---
Date of Encounter: 07/15/18 Time of Encounter: 09:27 - Assessment and plan (1) Hemothorax on left Current Visit: Yes Status: Acute The assessment and plan as outlined above was discussed with the patient and/or family members who expressed understanding and agreement. All questions were answered. continue chest tubes to suction . rounded with nurse order a stat chest xray. . (2) Acute kidney injury Current Visit: Yes Status: Resolved The assessment and plan as outlined above was discussed with the patient and/or family members who expressed understanding and agreement. All questions were answered. resolved (3) Acute and chronic respiratory failure with hypoxia Current Visit: Yes Status: Acute The assessment and plan as outlined above was discussed with the patient and/or family members who expressed understanding and agreement. All questions were answered. less oxygen support today - Subjective Interval history: anxious and sob Vital Signs, Last 4 Hours Temp Pulse Resp BP Pulse Ox 07/15/18 07:24 97.5 F L 99 20 161/99 92 Oxgyen Flow Rate Oxygen Flow Rate (LPM) 3 Clinical Data, last 8 Hours Output, Chest Tube Drainage 50 Amount [Left Lateral Chest #2] Output, Chest Tube Drainage 80 Amount [Left Lateral Chest #2] Output, Urine Amount 300 Output, Urine Amount 400 Output, Urine Amount 400 Weight 07/13/18 07/14/18 07/15/18 23:59 23:59 23:59 Weight 64.7 kg 62.4 kg - Physical Examination General: Conversant, No Apparent Distress HEENT: Atraumatic, Normocephaly Cardiac: Reg Rate and Rhythm Incision: No signs of infection, Dry/intact dressing Chest tubes: Minimal drainage, Air leak, Crepitus Lungs: Other (stable rhonchi and wheezing. ) Neuro: Alert and responsive, No focal deficits noted, Cranial nerves intact, Motor nerves intact Abdomen: Soft, Non-tender Extremities: No Edema - Labs 07/15/18 03:40 07/15/18 03:40 Lab Results, Last 24 hours 07/15/18 07/15/18 03:40 03:40 WBC 13.8 H Hgb 10.2 L Hct 33.0 L Plt Count 370 Sodium 142 Potassium 3.9 Chloride 105 Carbon Dioxide 33 H BUN 35 H Creatinine 0.50 L Glucose 92 Calcium 8.6 Consult Discharge Plan - Plan Referrals: Anmol Langley Jr, MD [Primary Care Provider] -
--- NOTE | 2018-07-15 10:09 | Internal Med Progress Note ---
Hospitalist Progress Note - Encounter Date of Encounter: 07/15/18 Time of Encounter: 08:30 - Subjective Interval History: States improvement in her breathing. No fever overnight. Oxygen requirement is weaned to 3 L. No chest pain - Exam Vitals: Temp Pulse Resp BP Pulse Ox 97.5 F L 99 20 161/99 92 07/15/18 07:24 07/15/18 07:24 07/15/18 07:24 07/15/18 07:24 07/15/18 07:24 Exam: General appearance: Alert and oriented 3, not in distress Respiratory: coarse breath sounds bilaterally with rhonchi and minimal wheezes. Left chest tube in-situ Cardiovascular: regular rate and rhythm, borderline tachycardia, no murmur Gastrointestinal: soft, non-tender, non-distended Extremities: no edema, pink and warm - Assessment and Plan (1) Acute and chronic respiratory failure with hypoxia Current Visit: Yes Status: Acute Assessment and Plan: Secondary to pneumonia complicated by left loculated pleural effusion s/p left thoracotomy decortication and pleurectomy on 07/12. Chest tube management per thoracic surgery Pleural fluid culture growing GPC presumed to be strep, on IV Garth D3 after 2 days of zosyn/zithro Anticipate 6 weeks of antibiotics given empyema, ID consult tomorrow to establish follow up Cytology negative for malignancy, surgical pathology pending O2 weaned to 3L of NC, continue to wean as tolerated. BiPAP when necessary Taper steroids over 2 weeks, continue bronchodilators follow with pulmonary (2) Severe sepsis Current Visit: Yes Status: Resolved Assessment and Plan: Presented with leukocytosis, tachycardia, tachypnea with pulmonary source of infection Associated with KOSTAS which now resolved pleural fluid growing GPC presumed to be strep blood culture NGTD, abx as above (3) Acute kidney injury Current Visit: Yes Status: Resolved Assessment and Plan: Secondary to sepsis as above, resolved (4) Pneumonia Current Visit: Yes Status: Acute Assessment and Plan: see #1 BAL growing GPC, likely strep. On IV Garth (5) Loculated pleural effusion Current Visit: Yes Status: Acute Assessment and Plan: s/p op as per #1. Appreciate CTS/pulmonary input repeat CT n 3-4 weeks (6) COPD exacerbation Current Visit: Yes Status: Acute Assessment and Plan: As above for respiratory failure Taper steroids over 2 weeks and start Symbicort on discharge with pulmonary follow up (7) DVT prophylaxis Current Visit: Yes Status: Acute Assessment and Plan: SQ heparin - Time Spent with Patient Total time spent is greater than 50% in coordination of care (as documented) at patient's floor/unit and/or counseling patient: 25 - 35 minutes Plan of Care Discussed with: patient (discussed with RN) Internal Medicine: Result - Labs CBC & Chem 7: 07/15/18 03:40 07/15/18 03:40 Labs: Short CBC 07/15/18 Range/Units 03:40 WBC 13.8 H (4.3-11.1) K/mcL Hgb 10.2 L (11.5-15.4) g/dL Hct 33.0 L (35.3-44.9) % Plt Count 370 (140-400) K/mcL Neutrophils # 10.2 H (1.6-8.9) K/mcL BMP 07/15/18 03:40 Sodium 142 Potassium 3.9 Chloride 105 Carbon Dioxide 33 H BUN 35 H Creatinine 0.50 L Glucose 92 Calcium 8.6 - ABG Interpretation ABG results: ABG ABG pH 7.32 pH Units (7.32-7.45) 07/13/18 05:04 ABG pCO2 54 mmHg (35-45) H 07/13/18 05:04 ABG pO2 112 mmHg (85-104) H 07/13/18 05:04 ABG O2 Saturation 98 % (95-98) 07/13/18 05:04 PT/INR, D-dimer PT 13.7 Seconds (9.4-12.1) H 07/12/18 04:40 - Impressions Impressions Chest X-Ray 07/15/18 09:25 IMPRESSION: Small residual left pneumothorax within the lung apex and sub pulmonic region. Improving ventilation left lower lobe. Persistent bibasilar atelectasis. Worsening subcutaneous emphysema within the left lateral chest wall and base of the left neck. D/ / Veto Oswald MD / Veto Oswald MD Interpreting Provider: Veto Oswald MD Consult Discharge Plan - Plan Referrals: Berno,Anmol C Jr, MD [Primary Care Provider] - (4) Pneumonia Qualifiers: Pneumonia type: due to unspecified organism Laterality: left Lung location: unspecified part of lung Qualified Code(s): J18.9 - Pneumonia, unspecified organism
[2018-07-15 10:15] LABS: RSV PCR Body Fluid NOT DETECTED
[2018-07-15] MEDS: cefTRIAXone 2,000 MG in Water for inj. (sterile) 20 ML 20 ML IVP SCH (11:54)
[2018-07-15] MEDS ORDERED: Isovue-370 500 ML BOTTLE IVP ONE (15:46)
--- NOTE | 2018-07-15 15:57 | Event Note ---
Date of Encounter: 07/15/18 Time of Encounter: 15:30 Informed by RN that pt's respiratory status is more labored. O2 requirement had gone back up to 5L. Also has slightly worsening tachycardia. Pt however denies any significant changes in her breathing and lung exam was more or less unchanged. When offered temporary support with BiPaP, she initially agreed to it but later refused. Informed the risk of potential intubation if respiratory status becomes more tenuous which she clearly refused despite understanding the risk of . I offered her if I could speak to her family members about her clinical and code status but told me that she will make all the decisions herself and there is no need for me to inform anyone else. After the discussion of the code status, she was once again agreeable for a very short-term BiPAP while trying to arrange for CTA chest to rule out PE. Will give her a trial of BiPaP, check CTA chest, and obtain ABG in 1 hour if there is no clinical improvement.
[2018-07-15] MEDS: Ipratropium/Albuterol Neb 3 ML IH SCH ×2 (20:28→23:50)
[2018-07-15] MEDS: ALPRAZolam 0.5 MG TABLET PO PRN (23:15)
[2018-07-16] MEDS: *HR* HYDROcodone/Acet 5/325 mg TABLET PO PRN ×3 (02:43→21:16)
[2018-07-16] MEDS: Ipratropium/Albuterol Neb 3 ML IH SCH ×6 (03:43→23:57)
[2018-07-16 04:43] LABS: Basophils # 0.1 K/mcL (0.0-0.2); Basophils % 0.5 %; Eosinophils # 0.2 K/mcL (0.0-0.6); Eosinophils % 1.2 %; Hematocrit 35.1 % (35.3-44.9); Lymphocytes # 1.8 K/mcL (0.6-4.6); Lymphocytes % 11.8 %; Mean Corpuscular HGB Conc 31.3 g/dL (31.6-35.5); Mean Corpuscular Hemoglobin 27.8 pg (28.0-33.3); Mean Corpuscular Volume 88.6 fL (83.0-100.0); Mean Platelet Volume 10.1 fL (9.4-12.4); Monocytes % 6.7 %; Neutrophils # 11.6 K/mcL (1.6-8.9); Platelet Count 367 K/mcL (140-400); Red Blood Count 3.96 M/mcL (3.82-4.97); Red Cell Distribution Width 15.3 % (11.5-14.5); Segmented Neutrophils % 76.8 %
[2018-07-16 05:01] LABS: BUN/Creatinine Ratio 49 (6-26); Blood Urea Nitrogen 22 mg/dL (8-23); Calcium 8.3 mg/dL (8.6-10.3); Carbon Dioxide 36 mEq/L (23-29); Chloride 99 mEq/L (98-107); Glucose 101 mg/dL (70-105); Osmolality,Calculated 293 (280-300); Potassium 3.3 mEq/L (3.5-5.1); Sodium 140 mEq/L (136-145); eGFR For Non-African Americans > 60 (> 60)
[2018-07-16] MEDS: *HR* Heparin 5,000 UNIT/ML VIAL SQ SCH ×3 (06:41→21:15)
[2018-07-16] MEDS: ALPRAZolam 0.5 MG TABLET PO PRN ×2 (06:46→23:03)
[2018-07-16] MEDS: Famotidine 20 MG TABLET PO SCH ×2 (08:38→21:15)
[2018-07-16] MEDS: predniSONE 20 MG TABLET PO SCH (08:41)
--- NOTE | 2018-07-16 08:55 | Cardiothoracic Progress Note ---
Date of Encounter: 07/16/18 Time of Encounter: 08:54 - Assessment and plan (1) Hemothorax on left Current Visit: Yes Status: Acute The assessment and plan as outlined above was discussed with the patient and/or family members who expressed understanding and agreement. All questions were answered. continue chest tubes to suction place to water seal at midnight tonight . rounded with nurse order a chest xray for next 2 days . (2) Acute and chronic respiratory failure with hypoxia Current Visit: Yes Status: Acute The assessment and plan as outlined above was discussed with the patient and/or family members who expressed understanding and agreement. All questions were answered. less oxygen support today - Subjective Interval history: anxious and sob Vital Signs, Last 4 Hours Temp Pulse Resp BP Pulse Ox 07/16/18 07:34 98.2 F 111 20 147/90 99 07/16/18 07:26 18 93 Oxgyen Flow Rate Oxygen Flow Rate (LPM) 4 Clinical Data, last 8 Hours Output, Chest Tube Drainage 20 Amount [Left Lateral Chest #2] Output, Chest Tube Drainage 20 Amount [Left Lateral Chest #2] Output, Urine Amount 450 Weight 07/14/18 07/15/18 07/16/18 23:59 23:59 23:59 Weight 62.4 kg 62.4 kg - Physical Examination General: Conversant HEENT: Atraumatic, Normocephaly Cardiac: Reg Rate and Rhythm, Normal S1 and S2 Incision: No signs of infection Chest tubes: Minimal drainage, Crepitus Lungs: Other (rhonchi and wheezing but less than yesterday ) Neuro: Alert and responsive, No focal deficits noted, Cranial nerves intact - Labs 07/16/18 04:13 07/16/18 04:13 Lab Results, Last 24 hours 07/16/18 07/16/18 04:13 04:13 WBC 15.1 H Hgb 11.0 L Hct 35.1 L Plt Count 367 Sodium 140 Potassium 3.3 L Chloride 99 Carbon Dioxide 36 H BUN 22 Creatinine 0.45 L Glucose 101 Calcium 8.3 L Consult Discharge Plan - Plan Referrals: Anmol Langley Jr, MD [Primary Care Provider] -
--- NOTE | 2018-07-16 10:39 | Internal Med Progress Note ---
Hospitalist Progress Note - Encounter Date of Encounter: 07/16/18 Time of Encounter: 09:00 - Subjective Interval History: Reports improvement in her breathing after brief BiPAP support. No fever overnight - Exam Vitals: Temp Pulse Resp BP Pulse Ox 98.2 F 111 20 147/90 99 07/16/18 07:34 07/16/18 07:34 07/16/18 07:34 07/16/18 07:34 07/16/18 07:34 Exam: General appearance: Alert and oriented 3, not in distress Respiratory: coarse breath sounds bilaterally with rhonchi and minimal wheezes. Left chest tube in-situ Cardiovascular: regular rate and rhythm, borderline tachycardia, no murmur Gastrointestinal: soft, non-tender, non-distended Extremities: no edema, pink and warm - Assessment and Plan (1) Acute and chronic respiratory failure with hypoxia Current Visit: Yes Status: Acute Assessment and Plan: Secondary to pneumonia complicated by left loculated pleural effusion s/p left thoracotomy decortication and pleurectomy on 07/12. Chest tube management per thoracic surgery Pleural fluid culture growing GPC presumed to be strep, on IV Garth D4 after 2 days of zosyn/zithro worsening leukocytosis noted with fluctuating O2 requirement. CTA chest did not show any PE yesterday but did demonstrate mucus plug in RML with atelectasis. discussed with pulm for possible bronch, will await for their eval Anticipate 6 weeks of antibiotics given empyema, for ID consult today Cytology negative for malignancy, surgical pathology pending continue to wean O2 as tolerated. BiPAP when necessary Taper steroids over 2 weeks, continue bronchodilators follow with pulmonary (2) Severe sepsis Current Visit: Yes Status: Resolved Assessment and Plan: Presented with leukocytosis, tachycardia, tachypnea with pulmonary source of infection Associated with KOSTAS which now resolved pleural fluid growing GPC presumed to be strep. On IV Garth and will consult ID in view of anticipated couse of prolonged IV Abx and worsening WBC blood culture NGTD (3) Acute kidney injury Current Visit: Yes Status: Resolved Assessment and Plan: Secondary to sepsis as above, resolved (4) Pneumonia Current Visit: Yes Status: Acute Assessment and Plan: see #1 BAL growing GPC, likely strep. On IV Garth (5) Loculated pleural effusion Current Visit: Yes Status: Acute Assessment and Plan: s/p op as per #1. Appreciate CTS/pulmonary input repeat CT n 3-4 weeks (6) COPD exacerbation Current Visit: Yes Status: Acute Assessment and Plan: As above for respiratory failure Taper steroids over 2 weeks and start Symbicort on discharge with pulmonary follow up (7) Goals of care, counseling/discussion Current Visit: Yes Status: Chronic Assessment and Plan: Discussed with patient and patient's at bedside at length, agreeable for transient bIPAP support but no intubation/CPR (8) DVT prophylaxis Current Visit: Yes Status: Acute Assessment and Plan: SQ heparin - Time Spent with Patient Total time spent is greater than 50% in coordination of care (as documented) at patient's floor/unit and/or counseling patient: Greater than 35 minutes Plan of Care Discussed with: patient Internal Medicine: Result - Labs CBC & Chem 7: 07/16/18 04:13 07/16/18 04:13 Labs: Short CBC 07/16/18 Range/Units 04:13 WBC 15.1 H (4.3-11.1) K/mcL Hgb 11.0 L (11.5-15.4) g/dL Hct 35.1 L (35.3-44.9) % Plt Count 367 (140-400) K/mcL Neutrophils # 11.6 H (1.6-8.9) K/mcL BMP 07/16/18 04:13 Sodium 140 Potassium 3.3 L Chloride 99 Carbon Dioxide 36 H BUN 22 Creatinine 0.45 L Glucose 101 Calcium 8.3 L - ABG Interpretation ABG results: ABG ABG pH 7.32 pH Units (7.32-7.45) 07/13/18 05:04 ABG pCO2 54 mmHg (35-45) H 07/13/18 05:04 ABG pO2 112 mmHg (85-104) H 07/13/18 05:04 ABG O2 Saturation 98 % (95-98) 07/13/18 05:04 PT/INR, D-dimer PT 13.7 Seconds (9.4-12.1) H 07/12/18 04:40 - Impressions Impressions Chest CTA 07/15/18 15:46 IMPRESSION: No evidence of pulmonary embolism. 2 left-sided chest tubes appear in good position-1 along the medial pleural space in the other within the posterior pleural space. Small areas of pneumothorax seen within the anterior inferior and posterosuperior aspect of the left pleural space. Increasing subcutaneous emphysema within the left lateral chest wall and base of the left neck. Worsening volume loss and consolidation lateral segment right middle lobe most compatible with pneumonia. Multifocal areas of patchy airspace opacity within the left lower lobe and to a lesser extent right lung base. These likely represent areas of atelectasis or multifocal pneumonia. Moderate apical emphysematous change is noted. D/ / Veto Oswald MD / Veto Oswald MD Interpreting Provider: Veto Oswald MD Consult Discharge Plan - Plan Additional Instructions: Please go to Out Patient testing on August 14, 2018 around 1245PM to get an x-ray done before you go see Dr. Swann. The office is sending the order over to out patient testing at the main hospital. Referrals: Anmol Langley Jr, MD [Primary Care Provider] - (sent web request on 07-16-18 @ [phone]) Dewayne Swann MD [Partnered Physician] - 08/14/18 1:45 pm (4) Pneumonia Qualifiers: Pneumonia type: due to unspecified organism Laterality: left Lung location: unspecified part of lung Qualified Code(s): J18.9 - Pneumonia, unspecified o rganism
[2018-07-16] MEDS: cefTRIAXone 2,000 MG in Water for inj. (sterile) 20 ML 20 ML IVP SCH (11:17)
[2018-07-16] MEDS ORDERED: ALPRAZolam 0.5 MG TABLET PO ONE (11:22)
--- NOTE | 2018-07-16 15:48 | Pulmonology Progress Note ---
Date of Encounter: 07/16/18 Time of Encounter: 10:50 Subjective Principal diagnosis: Acute on chronic respiratory failure Interval history: Patient is not able to sleep and she has been agitated. She denies any significant change in her breathing. Objective PUL Vital signs: Last Vital Signs Temp 97.8 F 07/16/18 11:41 Pulse 105 07/16/18 11:41 Resp 32 07/16/18 15:28 BP 142/99 07/16/18 11:41 Pulse Ox 96 07/16/18 15:28 General appearance: appears uncomfortable Eyes: nonicteric ENT: oropharynx dry Neck: supple Effort: mildly labored Auscultation: bilateral: rhonchi Percussion: left: other (subcutaneous crepitus) Results - Laboratory Findings CBC and BMP: 07/16/18 04:13 07/16/18 04:13 ABG ABG pH 7.32 pH Units (7.32-7.45) 07/13/18 05:04 ABG pCO2 54 mmHg (35-45) H 07/13/18 05:04 ABG pO2 112 mmHg (85-104) H 07/13/18 05:04 ABG O2 Saturation 98 % (95-98) 07/13/18 05:04 PT/INR, D-dimer PT 13.7 Seconds (9.4-12.1) H 07/12/18 04:40 Abnormal lab findings: Abnormal lab results WBC 15.1 K/mcL (4.3-11.1) H 07/16/18 04:13 RBC 3.66 M/mcL (3.82-4.97) L 07/15/18 03:40 Hgb 11.0 g/dL (11.5-15.4) L 07/16/18 04:13 Hct 35.1 % (35.3-44.9) L 07/16/18 04:13 MCH 27.8 pg (28.0-33.3) L 07/16/18 04:13 MCHC 31.3 g/dL (31.6-35.5) L 07/16/18 04:13 RDW 15.3 % (11.5-14.5) H 07/16/18 04:13 Plt Count 405 K/mcL (140-400) H 07/12/18 04:40 Immature Gran % 4.5 % (0-4) H 07/13/18 07:45 11.6 K/mcL (1.6-8.9) H 07/16/18 04:13 2.3 K/mcL (0.0-1.3) H 07/11/18 12:43 Nucleated RBCs/100 WBC 0.1 /100 WBC (0) H 07/15/18 03:40 PT 13.7 Seconds (9.4-12.1) H 07/12/18 04:40 ABG pH 7.30 pH Units (7.32-7.45) L 07/12/18 05:00 ABG pCO2 54 mmHg (35-45) H 07/13/18 05:04 ABG pO2 112 mmHg (85-104) H 07/13/18 05:04 ABG HCO3 30 mEq/L (21-27) H 07/11/18 21:43 ABG Total CO2 29 mEq/L (20-26) H 07/13/18 05:04 ABG O2 Saturation 93 % (95-98) L 07/12/18 05:00 VBG pH 7.23 pH Units (7.32-7.42) L 07/11/18 17:48 Sodium 134 mEq/L (136-145) L 07/11/18 17:25 Potassium 3.3 mEq/L (3.5-5.1) L 07/16/18 04:13 Chloride 109 mEq/L (98-107) H 07/13/18 10:01 Carbon Dioxide 36 mEq/L (23-29) H 07/16/18 04:13 BUN 35 mg/dL (8-23) H 07/15/18 03:40 0.45 mg/dL (0.60-1.20) L 07/16/18 04:13 Est GFR ( Amer) 58 (> 60) L 07/13/18 10:01 Est GFR (Non-Af Amer) 48 (> 60) L 07/13/18 10:01 49 (6-26) H 07/16/18 04:13 Glucose 122 mg/dL (70-105) H 07/14/18 04:00 POC Glucose 107 mg/dL (70-99) H 07/15/18 23:19 302 (280-300) H 07/15/18 03:40 Calcium 8.3 mg/dL (8.6-10.3) L 07/16/18 04:13 Venous Ioniz Calcium 0.93 mmol/L (1.15-1.35) L 07/11/18 17:48 Phosphorus 5.5 mg/dL (2.7-4.5) H 07/11/18 17:25 125 Units/L (34-104) H 07/12/18 04:40 5.4 g/dL (6.4-8.9) L 07/14/18 04:00 2.6 g/dL (3.5-5.7) L 07/14/18 04:00 4.3 g/dL (2.4-3.5) H 07/11/18 12:43 0.9 (1.1-2.2) L 07/14/18 04:00 Pleural Appearance Bloody (Clear) A 07/11/18 15:50 Herpes Simplex DNA PCR DETECTED A 07/11/18 Unknown - Microbiology Findings Microbiology Findings: Microbiology, Last 48 Hours 07/11/18 15:50 Body Fluid Culture - Preliminary Pleural Fluid Streptococcus anginosus Streptococcus species 07/11/18 Unknown Legionella Culture - Final Left Lower Lobe Lung 07/11/18 Unknown Respiratory Culture - Final Left Lower Lobe Lung - Clinical Findings Intake & Output: Intake & Output 07/15/18 07/16/18 07/16/18 23:59 07:59 15:59 Intake Total 140 / 140 Output Total 70 / 1360 490 / 1010 520 / 1010 Balance -70 / -420 -490 / -870 -380 / -870 Weight 62.4 kg Consult Discharge Plan - Plan Additional Instructions: Please go to Out Patient testing on August 14, 2018 around 1245PM to get an x-ray done before you go see Dr. Swann. The office is sending the order over to out patient testing at the main hospital. Referrals: Anmol Langley Jr, MD [Primary Care Provider] - (sent web request on 07-16-18 @ [phone]) Dewayne Swann MD [Partnered Physician] - 08/14/18 1:45 pm - Attending Attestation Assessment and plan: 1. Patient with abnormal CT chest which is compatible with pneumonia and due to her condition at this time and having chest tubes, discussed with primary team and continue antibiotics for now and hold for bronchoscopy at this time since it is not affecting her oxygenation significantly. If there is no improvement then we will arrange bronchoscopy for her. This was discussed with the patient and her family at the bedside and they agree with the treatment.
--- NOTE | 2018-07-16 16:08 | Infectious Disease Consult ---
Infectious Disease-Consult - Encounter Date/Time Date of Encounter: 07/16/18 - Data of Consult Requesting Physician: Dick Rodrigues MD Primary Care Provider: Anmol Langley Jr, MD - HPI HPI: Patient is a 58-year-old female who was admitted to [facility] with acute on chronic respiratory failure with hypoxia on 07/11/18. Infectious disease was consulted on 07/16/2018 for worsening leukocytosis. Patient is a 58-year-old female with a history of tobacco abuse who presented to [facility] with shortness of breath, cough, and hemoptysis. Initial assessment of the patient by EMS revealed oxygen saturation of 74%. Workup in the emergency department was significant for leukocytosis of 30.0 and KOSTAS with creatinine of 3.37, she also had respiratory acidosis with a pH of 7.17 and PCO2 of 81. Imaging studies obtained in the emergency department revealed a complicated pleural effusion on the left with some degree of loculation, mediastinal adenopathy with multiple defined nodular densities, and multifocal airspace disease on the right suspicious for pneumonia. A thoracentesis was performed and a chest tube was inserted by IR which drained bloody pleural fluid and a sample was sent to the lab for culture. Patient required intubation and was started on empiric Zosyn and admitted the ICU for monitoring of her respiratory status. Patient underwent bronchoscopy which showed the presence of fresh blood at the efe. Bronchiolar lavage was performed and sent for culture and studies. Cardiothoracic surgery was consulted and patient underwent left-sided thoracotomy with decortication and pleurectomy on 07/12/18. Patient was successfully extubated on 07/13. Cultures from patient's pleural fluid eventually grew two streptococcal species including Streptococcus anginosus. On 07/13/18 her Zosyn was stopped and she was started on Rocephin. Chest CTA performed in 07/15/2018 revealed consolidation within the right middle lobe most compatible with pneumonia as well as multifocal areas of airspace opacity in the left lower lobe and right lung base which may be atelectasis versus multifocal pneumonia. During the course of her hospitalization patient initially had drastic improvement in her leukocytosis down to 11.5 on 07/14/18, however this slowly da over the next few days to 15.1 on 07/16. Patient remains tachycardic and requires several liters of supplemental oxygen but has been afebrile. Today the patient states that she feels much improved, she denies any fevers, chills, hemoptysis. She does report mild chest pain at the chest tube site as well as some baseline shortness of breath. She is saturating well on 4 L. Denies any nausea, vomiting, diarrhea. - ROS Review of Systems: 10 system review of systems performed and negative except as stated in HPI - Results CBC & Chem 7: 07/17/18 05:20 07/17/18 05:20 - Exam Vitals: Temp Pulse Resp BP Pulse Ox 97.8 F 105 18 142/99 95 07/16/18 11:41 07/16/18 11:41 07/16/18 11:41 07/16/18 11:41 07/16/18 11:41 Exam: General: Resting comfortably in bed in no acute distress HEENT: Head is atraumatic normocephalic, pupils are equal and round, shock liver muscles intact, external ears and ears patent Neck: No JVD, trachea midline Chest: There is a chest tube on the left chest wall draining serosanguineous fluid into container Cardiovascular: Tachycardic, no murmurs Respiratory: Rales present bilaterally at the bases, worse on left Abdomen: Soft, nontender, no guarding or rigidity Extremities: No cyanosis clubbing or edema Neurological: Alert and oriented 3, no obvious focal neurological deficits Psych: Appropriate mood and affect No Known Home Drugs 07/11/18 [History] Allergy/AdvReac Type Severity Reaction Status Date / Time No Known Allergies Allergy Verified 07/11/18 16:11 - Assessment and Plan (1) Severe sepsis Current Visit: Yes Status: Resolved -Patient met severe sepsis criteria for leukocytosis, tachycardia, hypoxia, tachypnea, and an KOSTAS with creatinine of 3.37 -Source likely secondary to pneumonia and empyema -Empirically treated with Zosyn then ceftriaxone -Clinically improved but has had worsening leukocytosis over the past 2 days and variable oxygen demand -CTA chest from revealed worsening volume loss and consolidation of the lateral segment right middle lobe most compatible with pneumonia -Pleural fluid cultures growing Streptococcus anginosus and Streptococcus species Plan: -Will broaden antimicrobial coverage with Flagyl to cover for anaerobic o rganisms -Follow-up on blood cultures -Legionella and strep urinary antigens ordered however have not resulted SNOMED Code(s): 46411372 (2) Pneumonia Current Visit: Yes Status: Acute -CT chest findings compatible with pneumonia -Likely source for patient's severe sepsis and loculated pleural effusion -Pleural fluid cultures are growing Streptococcus anginosus -We will broaden antibiotic coverage with Flagyl to cover anaerobic microorganisms Qualifiers: Pneumonia type: due to unspecified organism Laterality: left Lung location: unspecified part of lung Qualified Code(s): J18.9 - Pneumonia, unspecified organism SNOMED Code(s): 627853009 (3) Empyema lung Current Visit: Yes Status: Acute -Drained by interventional radiology and pleural fluid culture grew Streptococcus anginosus and a second yet unidentified Streptococcus species -Status post decortication and pleurodesis by cardiothoracic surgery -One chest tube removed others remain in place SNOMED Code(s): 178561003 (4) Acute and chronic respiratory failure with hypoxia Current Visit: Yes Status: Acute -Patient presented with hypoxia and tachypnea -ABG on presentation revealed a pH of 7.17 with an elevated PCO2 of 81 -Likely secondary to pneumonia and loculated pleural effusion in the setting of emphysema -Moderate apical emphysematous change on CT scan noted -Currently requiring supplemental oxygen therapy SNOMED Code(s): 21672588, 451175105 (5) Tobacco abuse Current Visit: Yes Status: Acute -Patient has a [id number]-nvfh smoking history as she states that she smoked 2 packs per day for the past 30 years -Recommend prescribing nicotine patch while inpatient SNOMED Code(s): 666678980 Past Med Surg Social Fam HX - Past Medical History Medical history: no medical history Additional medical history: Spinal Stenosis Psychiatric history: no psych history - Past Surgical History Surgical History: no surgical history - Social History Smoking Status: Current every day smoker Packs per day: 1 Smokeless Tobacco Status: No Alcohol use: none Drug use: none - Family History Mother Hx Family Respiratory Disorders: Yes (COPD, Emphysema) Consult Discharge Plan - Plan Additional Instructions: Please go to Out Patient testing on August 14, 2018 around 1245PM to get an x-ray done before you go see Dr. Swann. The office is sending the order over to [facility] testing [facility]. Referrals: Anmol Langley Jr, MD [Primary Care Provider] - 07/25/18 10:00 am () Dewayne Swann MD [Partnered Physician] - 08/14/18 1:45 pm - Attending Attestation I examined this patient and my medical decision-making was reviewed with the Resident Physician. I agree with the documented findings, disposition and treatment plan as described except to the extent set forth below. Patient is a 58-year-old woman with past history mentioned below presented with shortness of breath and was noted to have severe sepsis secondary to pneumonia and empyema. Patient was taken to surgery by Dr. Swann where she underwent left-sided thoracotomy with decortication and pleurectomy on 07/12/2018. Intra- Op cultures were positive for Streptococcus species. On further questioning patient has not had any travel outside of the [place]. 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 No TB exposure. Denies any history of hepatitis or HIV or tuberculosis. Patient does smoke and has 57-[id number]-ewwe smoking history. She also has poor dentition and recent dental work. Assessment and Plan: 1. severe sepsis secondary multifocal pneumonia and empyema 2. empyema status post left-sided thoracotomy with decortication and pleurectomy 07/12/2018. Intra-Op cultures positive for Streptococcus anginosos and Streptococcus species 3.space multifocal pneumonia 4. tobacco abuse with history of [id number] 5. Leukocytosis likely secondary to steroids 6. Hemoptysis likely secondary to empyema and multifocal pneumonia. BAL with negative AFB for TB. Recommendations: Continue Rocephin and add metronidazole for now. I think the leukocytosis is due to to the steroids 2 chest tubes have been removed Duration of treatment 6 weeks from 07/12/2018 We will consider switching to oral antibiotics if okay with cardiothoracic surgery once stable Monitor left for drug toxicity
[2018-07-16] MEDS: metroNIDAZOLE 500 MG TABLET PO SCH (21:16)
[2018-07-17] MEDS: *HR* HYDROcodone/Acet 5/325 mg TABLET PO PRN ×3 (04:10→20:55)
[2018-07-17] MEDS: *HR* Heparin 5,000 UNIT/ML VIAL SQ SCH ×3 (04:11→20:53)
[2018-07-17] MEDS: Ipratropium/Albuterol Neb 3 ML IH SCH ×6 (04:14→23:43)
[2018-07-17] MEDS: ALPRAZolam 0.5 MG TABLET PO PRN ×3 (05:29→20:53)
[2018-07-17 05:56] LABS: Basophils # 0.1 K/mcL (0.0-0.2); Basophils % 0.3 %; Eosinophils # 0.4 K/mcL (0.0-0.6); Eosinophils % 2.4 %; Hematocrit 37.5 % (35.3-44.9); Hemoglobin 11.6 g/dL (11.5-15.4); Lymphocytes # 2.1 K/mcL (0.6-4.6); Lymphocytes % 13.8 %; Mean Corpuscular HGB Conc 30.9 g/dL (31.6-35.5); Mean Corpuscular Hemoglobin 27.4 pg (28.0-33.3); Mean Corpuscular Volume 88.4 fL (83.0-100.0); Monocytes # 0.8 K/mcL (0.0-1.3); Monocytes % 5.5 %; Neutrophils # 11.5 K/mcL (1.6-8.9); Platelet Count 424 K/mcL (140-400); Red Blood Count 4.24 M/mcL (3.82-4.97); Red Cell Distribution Width 15.4 % (11.5-14.5)
[2018-07-17 06:15] LABS: BUN/Creatinine Ratio 35 (6-26); Blood Urea Nitrogen 18 mg/dL (8-23); Calcium 8.7 mg/dL (8.6-10.3); Carbon Dioxide 38 mEq/L (23-29); Chloride 98 mEq/L (98-107); Glucose 140 mg/dL (70-105); Magnesium 1.3 mg/dL (1.6-2.6); Osmolality,Calculated 300 (280-300); Potassium 3.4 mEq/L (3.5-5.1); Sodium 143 mEq/L (136-145); eGFR For Non-African Americans > 60 (> 60)
[2018-07-17] MEDS: Famotidine 20 MG TABLET PO SCH ×2 (08:24→20:53)
[2018-07-17] MEDS: metroNIDAZOLE 500 MG TABLET PO SCH (08:24)
[2018-07-17] MEDS: predniSONE 20 MG TABLET PO SCH (08:24)
--- NOTE | 2018-07-17 09:14 | Cardiothoracic Progress Note ---
Date of Encounter: 07/17/18 Time of Encounter: 09:13 - Assessment and plan (1) Hemothorax on left Current Visit: Yes Status: Acute The assessment and plan as outlined above was discussed with the patient and/or family members who expressed understanding and agreement. All questions were answered. removed 1 chest tube. continue to water seal . rounded with nurse . (2) Acute and chronic respiratory failure with hypoxia Current Visit: Yes Status: Acute The assessment and plan as outlined above was discussed with the patient and/or family members who expressed understanding and agreement. All questions were answered. less oxygen support today - Subjective Interval history: anxious and sob Vital Signs, Last 4 Hours Temp Pulse Resp BP Pulse Ox 07/17/18 08:40 124 07/17/18 07:35 24 94 07/17/18 06:31 98.2 F 110 18 133/87 91 Oxgyen Flow Rate Oxygen Flow Rate (LPM) 3 Clinical Data, last 8 Hours Output, Chest Tube Drainage 40 Amount [Left Lateral Chest #2] Output, Chest Tube Drainage 50 Amount [Left Lateral Chest #2] Output, Urine Amount 600 Weight 07/15/18 07/16/18 07/17/18 23:59 23:59 23:59 Weight 62.4 kg 62.4 kg 61.6 kg - Physical Examination General: Conversant, Other (little respiratory distress) HEENT: Atraumatic Cardiac: Reg Rate and Rhythm, Normal S1 and S2 Incision: No signs of infection, Dry/intact dressing, Open to air Chest tubes: Minimal drainage, Crepitus Lungs: Other (minimal rhonchi. best she has ever sounded ) Neuro: Alert and responsive, No focal deficits noted, Cranial nerves intact - Labs 07/17/18 05:20 07/17/18 05:20 Lab Results, Last 24 hours 07/17/18 07/17/18 05:20 05:20 WBC 15.3 H Hgb 11.6 Hct 37.5 Plt Count 424 H Sodium 143 Potassium 3.4 L Chloride 98 Carbon Dioxide 38 H BUN 18 Creatinine 0.51 L Glucose 140 H Calcium 8.7 Magnesium 1.3 L - Imaging Chest Xray: image reviewed Consult Discharge Plan - Plan Additional Instructions: Please go to Out Patient testing on August 14, 2018 around 1245PM to get an x-ray done before you go see Dr. Swann. The office is sending the order over to out patient testing at the main hospital. Referrals: Anmol Langley Jr, MD [Primary Care Provider] - 07/25/18 10:00 am () Dewayne Swann MD [Partnered Physician] - 08/14/18 1:45 pm
--- NOTE | 2018-07-17 11:34 | Internal Med Progress Note ---
Hospitalist Progress Note - Encounter Date of Encounter: 07/17/18 Time of Encounter: 10:15 - Subjective Interval History: No acute events overnight. States that she feels stronger and breathing is easier today. No chest pain or cough. Anxiety is much better controlled on Xanax - Exam Vitals: Temp Pulse Resp BP Pulse Ox 97.9 F 92 18 102/78 89 07/17/18 10:12 07/17/18 10:12 07/17/18 10:12 07/17/18 10:12 07/17/18 10:12 Exam: General appearance: Alert and oriented 3, not in distress Respiratory: coarse breath sounds bilaterally with rhonchi and minimal wheezes. Left chest tube in-situ Cardiovascular: regular rate and rhythm, borderline tachycardia, no murmur Gastrointestinal: soft, non-tender, non-distended Extremities: no edema, pink and warm - Assessment and Plan (1) Acute and chronic respiratory failure with hypoxia Current Visit: Yes Status: Acute Assessment and Plan: Secondary to pneumonia complicated by left loculated pleural effusion s/p left thoracotomy decortication and pleurectomy on 07/12. Chest tube m anagement per thoracic surgery Cytology negative for malignancy, surgical pathology -ve for malignancy as well Pleural fluid culture growing 2 streptococcus species. On IV Garth D5 after 2 days of zosyn/zithro given persistent R ML collapse with mucus plugging, pulm was consulted; will hold off on bronch for now given her clinical improvement Anticipate 6 weeks of antibiotics given empyema, abx per ID. Noted flagyl added continue to wean O2 as tolerated. BiPAP when necessary Taper steroids over 2 weeks, continue bronchodilators follow with pulmonary and CTS (2) Severe sepsis Current Visit: Yes Status: Resolved Assessment and Plan: Presented with leukocytosis, tachycardia, tachypnea with pulmonary source of infection Associated with KOSTAS which now resolved pleural fluid growing 2 species of streptococcus. ID consulted for abx recs blood culture NGTD (3) Acute kidney injury Current Visit: Yes Status: Resolved Assessment and Plan: Secondary to sepsis as above, resolved (4) Pneumonia Current Visit: Yes Status: Acute Assessment and Plan: see #1 pleural fluid growing streptococcus x 2. On IV Garth (5) Loculated pleural effusion Current Visit: Yes Status: Acute Assessment and Plan: s/p op as per #1. Appreciate CTS/pulmonary input repeat CT n 3-4 weeks (6) COPD exacerbation Current Visit: Yes Status: Acute Assessment and Plan: As above for respiratory failure Taper steroids over 2 weeks and start Symbicort on discharge with pulmonary follow up (7) Goals of care, counseling/discussion Current Visit: Yes Status: Chronic (8) DVT prophylaxis Current Visit: Yes Status: Acute Assessment and Plan: SQ heparin - Time Spent with Patient Total time spent is greater than 50% in coordination of care (as documented) at patient's floor/unit and/or counseling patient: 25 - 35 minutes Plan of Care Discussed with: patient (discussed with pulmonary) Internal Medicine: Result - Labs CBC & Chem 7: 07/17/18 05:20 07/17/18 05:20 Labs: Short CBC 07/17/18 Range/Units 05:20 WBC 15.3 H (4.3-11.1) K/mcL Hgb 11.6 (11.5-15.4) g/dL Hct 37.5 (35.3-44.9) % Plt Count 424 H (140-400) K/mcL Neutrophils # 11.5 H (1.6-8.9) K/mcL BMP 07/17/18 05:20 Sodium 143 Potassium 3.4 L Chloride 98 Carbon Dioxide 38 H BUN 18 Creatinine 0.51 L Glucose 140 H Calcium 8.7 - ABG Interpretation ABG results: ABG ABG pH 7.32 pH Units (7.32-7.45) 07/13/18 05:04 ABG pCO2 54 mmHg (35-45) H 07/13/18 05:04 ABG pO2 112 mmHg (85-104) H 07/13/18 05:04 ABG O2 Saturation 98 % (95-98) 07/13/18 05:04 PT/INR, D-dimer PT 13.7 Seconds (9.4-12.1) H 07/12/18 04:40 - Impressions Impressions Chest X-Ray 07/17/18 08:00 IMPRESSION: 1. Stable small left pneumothorax with [address] 2. Increasing subcutaneous air throughout the left chest. 3. Bibasilar infiltrates, stable from yesterday's CTA exam. D/ / Jass Balbuena MD / Jass Balbuena MD Interpreting Provider: Jass Balbuena MD Consult Discharge Plan - Plan Additional Instructions: Please go to Out Patient testing on August 14, 2018 around 1245PM to get an x-ray done before you go see Dr. Swann. The office is sending the order over to out patient testing at the main hospital. Referrals: Anmol Langley Jr, MD [Primary Care Provider] - 07/25/18 10:00 am () Dewayne Swann MD [Partnered Physician] - 08/14/18 1:45 pm (4) Pneumonia Qualifiers: Pneumonia type: due to unspecified organism Laterality: left Lung location: unspecified part of lung Qualified Code(s): J18.9 - Pneumonia, unspecified organism
[2018-07-17] MEDS: cefTRIAXone 2,000 MG in Water for inj. (sterile) 20 ML 20 ML IVP SCH (12:02)
--- NOTE | 2018-07-17 14:36 | Infectious Disease Progress No ---
ID Progress Note Date of Encounter: 07/17/18 Time of Encounter: 11:00 - Subjective Subjective: Patient seen and examined today at bedside with family member present. She denies any complaints overnight, denies any fevers, chills, shortness of breath. Has mild chest pain at chest tube site. One chest tube was removed by car to thoracic surgery today. White blood count stable from prior day at 15.3. Tachycardic but afebrile - Objective CBC & Chem 7: 07/18/18 03:40 07/18/18 03:40 - Exam Vitals: Temp Pulse Resp BP Pulse Ox 97.4 F L 88 18 130/86 89 07/17/18 12:24 07/17/18 12:24 07/17/18 12:24 07/17/18 12:24 07/17/18 12:24 Exam: General: Resting comfortably in bed in no acute distress HEENT: Head is atraumatic normocephalic, pupils are equal and round, EOMI, poor dentition noted Neck: No JVD, trachea midline Chest: There is a chest tube on the left chest wall Cardiovascular: Tachycardic, no murmurs Respiratory: Rales present bilaterally at the bases, worse on left Abdomen: Soft, nontender, no guarding or rigidity Extremities: No cyanosis clubbing or edema Neurological: Alert and oriented 3, no obvious focal neurological deficits Psych: Appropriate mood and affect - Assessment and Plan (1) Severe sepsis Current Visit: Yes Status: Resolved -Patient met severe sepsis criteria for leukocytosis, tachycardia, hypoxia, tachypnea, and an KOSTAS with creatinine of 3.37 -Source likely secondary to pneumonia and empyema -Empirically treated with Zosyn then ceftriaxone -Clinically improved but has had worsening leukocytosis over the past 2 days and variable oxygen demand -CTA chest from 07/15/2018 revealed worsening volume loss and consolidation of t he lateral segment right middle lobe most compatible with pneumonia -Pleural fluid cultures growing Streptococcus anginosus and Streptococcus species Plan: -We will change patient's antibiotic coverage to ceftriaxone and Unasyn will inpatient -Follow-up on blood cultures -Persistent leukocytosis likely secondary to patient's prednisone SNOMED Code(s): 46406167 (2) Pneumonia Current Visit: Yes Status: Acute -CT chest findings compatible with pneumonia -Likely source for patient's severe sepsis and loculated pleural effusion -Pleural fluid cultures are growing Streptococcus anginosus -Changed antibiotics to ceftriaxone and Unasyn Qualifiers: Pneumonia type: due to unspecified organism Laterality: left Lung location: unspecified part of lung Qualified Code(s): J18.9 - Pneumonia, unsp ecified organism SNOMED Code(s): 007049360 (3) Empyema lung Current Visit: Yes Status: Acute -Drained by interventional radiology and pleural fluid culture grew Streptococcus anginosus and a second yet unidentified Streptococcus species -Status post decortication and pleurodesis by cardiothoracic surgery -One chest tube in place SNOMED Code(s): 859721289 (4) Acute and chronic respiratory failure with hypoxia Current Visit: Yes Status: Acute -Patient presented with hypoxia and tachypnea -ABG on presentation revealed a pH of 7.17 with an elevated PCO2 of 81 -Likely secondary to pneumonia and loculated pleural effusion in the setting of emphysema -Moderate apical emphysematous change on CT scan noted -Currently requiring supplemental oxygen therapy SNOMED Code(s): 89571844, 827420974 (5) Tobacco abuse Current Visit: Yes Status: Acute -Patient has a [id number]-yzvr smoking history as she states that she smoked 2 packs per day for the past 30 years -Recommend prescribing nicotine patch while inpatient SNOMED Code(s): 921468799 Consult Discharge Plan - Plan Additional Instructions: Please go to Out Patient testing on August 14, 2018 around 1245PM to get an x-ray done before you go see Dr. Swann. The office is sending the order [facility] Referrals: Anmol Langley Jr, MD [Primary Care Provider] - 07/25/18 10:00 am () Dewayne Swann MD [Partnered Physician] - 08/14/18 1:45 pm - Attending Attestation I examined this patient and my medical decision-making was reviewed with the Resident Physician. I agree with the documented findings, disposition and treatment plan as described except to the extent set forth below. Assessment and Plan: 1. severe sepsis secondary multifocal pneumonia and empyema 2. empyema status post left-sided thoracotomy with decortication and pleurectomy 07/12/2018. Intra-Op cultures positive for Streptococcus anginosos and Streptococcus species 3.space multifocal pneumonia 4. tobacco abuse with history of [id number] 5. Leukocytosis likely secondary to steroids 6. Hemoptysis likely secondary to empyema and multifocal pneumonia. BAL with negative AFB for TB. Recommendations: switch to unasyn while in hospital on d/c we might consider rocephin and oral metronidazole vs oral augmentin? we will d/w Dr. Swann duration of treatmet with antibiotics 6 weeks total
--- NOTE | 2018-07-17 15:05 | Electrocardiograph Report ---
[place] [address] Test Date: 2018-07-12 Pat Name: Corrie Randall Department: 109 Room: 2N12 Gender: F [employer] Agent: [id number] 1960 Requested By: Dewayne Swann Order Number: [id number] Reading MD: Franklin Toledo Measurements Intervals Boody Rate: 77 P: 74 CA: 132 QRS: 77 QRSD: 85 T: 63 QT: 393 QTc: 425 Interpretive Statements SINUS RHYTHM Electronically Signed On 07-17-2018 15:03:58 EDT by Franklin Toledo
[2018-07-17] MEDS: Ampicillin/Sulbactam 3,000 MG in 0.9 % Sodium Chloride Mini Bag 100 ML IVPB SCH ×2 (17:25→23:59)
[2018-07-18] MEDS: ALPRAZolam 0.5 MG TABLET PO PRN ×2 (03:44→20:50)
[2018-07-18 03:58] LABS: Basophils % 0.3 %; Eosinophils # 0.4 K/mcL (0.0-0.6); Eosinophils % 3.5 %; Hematocrit 36.6 % (35.3-44.9); Hemoglobin 11.3 g/dL (11.5-15.4); Immature Granulocytes % 2.1 % (0-4); Lymphocytes # 2.2 K/mcL (0.6-4.6); Lymphocytes % 18.3 %; Mean Corpuscular HGB Conc 30.9 g/dL (31.6-35.5); Mean Corpuscular Hemoglobin 27.4 pg (28.0-33.3); Mean Corpuscular Volume 88.6 fL (83.0-100.0); Mean Platelet Volume 9.8 fL (9.4-12.4); Monocytes # 0.9 K/mcL (0.0-1.3); Monocytes % 7.5 %; Neutrophils # 8.1 K/mcL (1.6-8.9); Platelet Count 444 K/mcL (140-400); Red Blood Count 4.13 M/mcL (3.82-4.97); Red Cell Distribution Width 15.6 % (11.5-14.5); Segmented Neutrophils % 68.3 %
[2018-07-18 04:11] LABS: BUN/Creatinine Ratio 30 (6-26); Blood Urea Nitrogen 14 mg/dL (8-23); Calcium 8.6 mg/dL (8.6-10.3); Carbon Dioxide 37 mEq/L (23-29); Chloride 101 mEq/L (98-107); Glucose 100 mg/dL (70-105); Magnesium 1.6 mg/dL (1.6-2.6); Osmolality,Calculated 299 (280-300); Potassium 3.7 mEq/L (3.5-5.1); Sodium 144 mEq/L (136-145); eGFR For Non-African Americans > 60 (> 60)
[2018-07-18] MEDS: Ipratropium/Albuterol Neb 3 ML IH SCH ×5 (04:25→20:13)
[2018-07-18] MEDS: Ampicillin/Sulbactam 3,000 MG in 0.9 % Sodium Chloride Mini Bag 100 ML IVPB SCH ×4 (05:56→23:52)
[2018-07-18] MEDS: *HR* Heparin 5,000 UNIT/ML VIAL SQ SCH ×3 (05:59→20:50)
[2018-07-18] MEDS: *HR* HYDROcodone/Acet 5/325 mg TABLET PO PRN ×2 (06:31→16:36)
[2018-07-18] MEDS: predniSONE 20 MG TABLET PO SCH (07:46)
[2018-07-18] MEDS: Famotidine 20 MG TABLET PO SCH ×2 (07:46→20:50)
--- NOTE | 2018-07-18 08:30 | Internal Med Progress Note ---
Hospitalist Progress Note - Encounter Date of Encounter: 07/18/18 Time of Encounter: 08:30 - Subjective Interval History: Patient seen and examined this morning at bedside. No acute overnight events. Patient feeling better and wanted to go home. Breathing improved. 180 cc of Lt chest tube drain yesterday. Afebrile. - Exam Vitals: Temp Pulse Resp BP Pulse Ox 98.1 F 106 18 142/93 91 07/18/18 06:44 07/18/18 06:44 07/18/18 07:51 07/18/18 06:44 07/18/18 07:51 Exam: General: In no acute distress. Respiratory exam: coarse breath sound bilateral base. Lt chest tube with drainage. Cardiovascular exam: tachycardic, +S1, +S2. no murmur, gallop, rubs. GI/Abdominal exam: Non-tender, Non-distended, normal bowel sounds, soft, no peritoneal signs. Extremities exam: no pedal edema, pulses palpable in b/l lower extremities. no calf tenderness Neurological exam: CN II-XII intact, AO X3, no focal deficits. - Assessment and Plan (1) Pneumonia Current Visit: Yes Status: Acute (2) Loculated pleural effusion Current Visit: Yes Status: Acute (3) Acute kidney injury Current Visit: Yes Status: Resolved (4) DVT prophylaxis Current Visit: Yes Status: Acute (5) Acute and chronic respiratory failure with hypoxia Current Visit: Yes Status: Acute (6) Severe sepsis Current Visit: Yes Status: Resolved (7) COPD exacerbation Current Visit: Yes Status: Acute (8) Goals of care, counseling/discussion Current Visit: Yes Status: Chronic - Summary of Assessment and Plan Summary of Assessment and Plan: Acute and chronic respiratory failure with hypoxia - Secondary to pneumonia complicated by left loculated pleural effusion - s/p left thoracotomy decortication and pleurectomy on 07/12. CT surgery following for Chest tube management. Still with Lt chest tube - Pleural fluid with Cytology negative for malignancy, surgical pathology -ve for malignancy as well. Pleural fluid culture growing streptococcus 2 species. Started on ceftriaxone and Unasyn per ID while inpatient. will need 6 weeks antibiotics. May switch to PO. ID recommendations appreciated. - Blood culture NGTD. Legionlella and AFB negative. - No bronch per pulm for now given clinical improvement. - ID, pulmonary and CTS following. - Will need repeat CT n 3-4 weeks Severe sepsis - resolved. Acute kidney injury - resolved Pneumonia - as above Loculated pleural effusion - as above COPD exacerbation - c/w steroid taper and duonebs. will dic with symbicort DVT prophylaxis - SQ heparin - Time Spent with Patient Total time spent is greater than 50% in coordination of care (as documented) at patient's floor/unit and/or counseling patient: Internal Medicine: Result - Labs CBC & Chem 7: 07/18/18 03:40 07/18/18 03:40 Labs: Short CBC 07/18/18 Range/Units 03:40 WBC 11.8 H (4.3-11.1) K/mcL Hgb 11.3 L (11.5-15.4) g/dL Hct 36.6 (35.3-44.9) % Plt Count 444 H (140-400) K/mcL Neutrophils # 8.1 (1.6-8.9) K/mcL BMP 07/18/18 03:40 Sodium 144 Potassium 3.7 Chloride 101 Carbon Dioxide 37 H BUN 14 Creatinine 0.47 L Glucose 100 Calcium 8.6 - ABG Interpretation ABG results: ABG ABG pH 7.32 pH Units (7.32-7.45) 07/13/18 05:04 ABG pCO2 54 mmHg (35-45) H 07/13/18 05:04 ABG pO2 112 mmHg (85-104) H 07/13/18 05:04 ABG O2 Saturation 98 % (95-98) 07/13/18 05:04 PT/INR, D-dimer PT 13.7 Seconds (9.4-12.1) H 07/12/18 04:40 - Impressions Impressions Chest X-Ray 07/17/18 17:40 IMPRESSION: The small left-sided pneumothorax has slightly increased in the interim. One of the chest tubes has been removed. D/ / 07/17/2018 18:04:59 Blayne Corbin MD / cristofer Interpreting Provider: Blayne Corbin MD Chest X-Ray 07/18/18 08:00 IMPRESSION: 1. Increasing right basilar airspace opacity either atelectasis or pneumonia. 2. No significant interval change in left thoracostomy tube and left pneumothorax. Left subcutaneous emphysema is unchanged. D/ / Kemi Caba MD / Kemi Caba MD Interpreting Provider: Kemi Caba MD Consult Discharge Plan - Plan Additional Instructions: Please go to Out Patient testing on August 14, 2018 around 1245PM to get an x-ray done before you go see Dr. Swann. The office is sending the order over to out patient testing at the main hospital. Referrals: Anmol Langley Jr, MD [Primary Care Provider] - 07/25/18 10:00 am () Dewayne Swann MD [Partnered Physician] - 08/14/18 1:45 pm (1) Pneumonia Qualifiers: Pneumonia type: due to unspecified organism Laterality: left Lung location: unspecified part of lung Qualified Code(s): J18.9 - Pneumonia, unspecified organism
--- NOTE | 2018-07-18 08:59 | Cardiothoracic Progress Note ---
Date of Encounter: 07/18/18 Time of Encounter: 08:58 - Assessment and plan (1) Hemothorax on left Current Visit: Yes Status: Acute The assessment and plan as outlined above was discussed with the patient and/or family members who expressed understanding and agreement. All questions were answered. removed 1 chest tube. continue to water seal . rounded with nurse . (2) Acute and chronic respiratory failure with hypoxia Current Visit: Yes Status: Acute The assessment and plan as outlined above was discussed with the patient and/or family members who expressed understanding and agreement. All questions were answered. less oxygen support today - Subjective Interval history: anxious and sob Vital Signs, Last 4 Hours Temp Pulse Resp BP Pulse Ox 07/18/18 08:31 113 07/18/18 07:51 18 91 07/18/18 06:44 98.1 F 106 19 142/93 89 Oxgyen Flow Rate Oxygen Flow Rate (LPM) 3 Clinical Data, last 8 Hours Output, Chest Tube Drainage 70 Amount [Left Lateral Chest #2] Output, Urine Amount 0 Weight 07/16/18 07/17/18 07/18/18 23:59 23:59 23:59 Weight 62.4 kg 61.6 kg 61.5 kg - Physical Examination General: Other (sleeping ) Cardiac: Reg Rate and Rhythm, Normal S1 and S2 Chest tubes: Minimal drainage, Other - Labs 07/18/18 03:40 07/18/18 03:40 Lab Results, Last 24 hours 07/18/18 07/18/18 03:40 03:40 WBC 11.8 H Hgb 11.3 L Hct 36.6 Plt Count 444 H Sodium 144 Potassium 3.7 Chloride 101 Carbon Dioxide 37 H BUN 14 Creatinine 0.47 L Glucose 100 Calcium 8.6 Magnesium 1.6 Consult Discharge Plan - Plan Additional Instructions: Please go to Out Patient testing on August 14, 2018 around 1245PM to get an x-ray done before you go see Dr. Swann. The office is sending the order over to out patient testing at the main hospital. Referrals: Anmol Langley Jr, MD [Primary Care Provider] - 07/25/18 10:00 am () Dewayne Swann MD [Partnered Physician] - 08/14/18 1:45 pm
--- NOTE | 2018-07-18 10:35 | Infectious Disease Progress No ---
ID Progress Note Date of Encounter: 07/18/18 Time of Encounter: 09:30 - Subjective Subjective: Patient seen and examined today at bedside with family member present. No complaints overnight. Denies fevers, chills, chest pain, or SOB. Chest tube in place. - Objective CBC & Chem 7: 07/18/18 03:40 07/18/18 03:40 - Exam Vitals: Temp Pulse Resp BP Pulse Ox 98.1 F 113 18 142/93 91 07/18/18 06:44 07/18/18 08:31 07/18/18 07:51 07/18/18 06:44 07/18/18 07:51 Exam: General: Resting comfortably in bed in no acute distress HEENT: Head is atraumatic normocephalic, pupils are equal and round, EOMI, poor dentition noted Neck: No JVD, trachea midline Chest: There is a chest tube on the left chest wall Cardiovascular: Tachycardic, no murmurs Respiratory: Rales present bilaterally at the bases, worse on left Abdomen: Soft, nontender, no guarding or rigidity Extremities: No cyanosis clubbing or edema Neurological: Alert and oriented 3, no obvious focal neurological deficits Psych: Appropriate mood and affect - Assessment and Plan (1) Severe sepsis Current Visit: Yes Status: Resolved -Patient met severe sepsis criteria for leukocytosis, tachycardia, hypoxia, tachypnea, and an KOSTAS with creatinine of 3.37 -Source likely secondary to pneumonia and empyema -Empirically treated with Zosyn then ceftriaxone -Clinically improved -CTA chest from 07/15/2018 revealed worsening volume loss and consolidation of the lateral segment right middle lobe most compatible with pneumonia -Pleural fluid cultures growing Streptococcus anginosus and Streptococcus species, concern for anaerobic or polymicrobial oral denise as the source Plan: -Discontinued ceftriaxone -Continue unasyn while inpatient -May consider ceftriaxone and metronidazole IV vs. oral augmentin alone on disc harge for a total of 6 weeks, will discuss with CT surgery prior to finalizing outpatient antibiotic recommendations SNOMED Code(s): 36148389 (2) Pneumonia Current Visit: Yes Status: Acute -CT chest findings compatible with multifocal pneumonia pneumonia -Likely source for patient's severe sepsis and loculated pleural effusion -Pleural fluid cultures are growing Streptococcus anginosus, concern for anaerobic or polymicrobial oral denise as the source -continue Unasyn while inpatient, ceftriaxone discontinued Qualifiers: Pneumonia type: due to unspecified organism Laterality: left Lung location: unspecified part of lung Qualified Code(s): J18.9 - Pneumonia, unspecified organism SNOMED Code(s): 201906898 (3) Empyema lung Current Visit: Yes Status: Acute -Drained by interventional radiology and pleural fluid culture grew Streptococcus anginosus and a second yet unidentified Streptococcus species -Status post decortication and pleurodesis by cardiothoracic surgery -One chest tube in place SNOMED Code(s): 950797945 (4) Leukocytosis Current Visit: Yes Status: Acute Likely secondary to steroids Qualifiers: Leukocytosis type: unspecified Qualified Code(s): D72.829 - Elevated white blood cell count, unspecified SNOMED Code(s): 498547265, 849595837 (5) Acute and chronic respiratory failure with hypoxia Current Visit: Yes Status: Acute -Patient presented with hypoxia and tachypnea -ABG on presentation revealed a pH of 7.17 with an elevated PCO2 of 81 -Likely secondary to pneumonia and loculated pleural effusion in the setting of emphysema -Moderate apical emphysematous change on CT scan noted -Oxygen demand decreasing SNOMED Code(s): 95091480, 303102343 (6) Tobacco abuse Current Visit: Yes Status: Acute -Patient has a [id number] smoking history as she states that she smoked 2 packs per day for the past 30 years -Recommend prescribing nicotine patch while inpatient SNOMED Code(s): 873408355 Consult Discharge Plan - Plan Additional Instructions: Please go to Out Patient testing on August 14, 2018 around 1245PM to get an x-ray done before you go see Dr. Swann. The office is sending the order over to out patient testing at the [facility]. Referrals: Anmol Langley Jr, MD [Primary Care Provider] - 07/25/18 10:00 am () Dewayne Swann MD [Partnered Physician] - 08/14/18 1:45 pm - Attending Attestation I examined this patient and my medical decision-making was reviewed with the Resident Physician. I agree with the documented findings, disposition and treatment plan as described except to the extent set forth below. Assessment and Plan: 1. severe sepsis secondary multifocal pneumonia and empyema 2. empyema status post left-sided thoracotomy with decortication and pleurectomy 07/12/2018. Intra-Op cultures positive for Streptococcus anginosos and Streptococcus species 3. space multifocal pneumonia 4. tobacco abuse with history of [id number] 5. Leukocytosis likely secondary to steroids 6. Hemoptysis likely secondary to empyema and multifocal pneumonia. BAL with negative AFB for TB. Recommendations: switch to unasyn while in hospital on d/c we might consider rocephin and oral metronidazole vs oral augmentin? we will d/w Dr. Swann duration of treatmet with antibiotics 6 weeks total
[2018-07-19] MEDS: Ipratropium/Albuterol Neb 3 ML IH SCH ×6 (00:36→20:39)
[2018-07-19] MEDS: ALPRAZolam 0.5 MG TABLET PO PRN ×3 (02:36→21:34)
[2018-07-19] MEDS: *HR* Heparin 5,000 UNIT/ML VIAL SQ SCH ×3 (05:59→21:35)
[2018-07-19] MEDS: Ampicillin/Sulbactam 3,000 MG in 0.9 % Sodium Chloride Mini Bag 100 ML IVPB SCH ×3 (06:00→17:14)
[2018-07-19] MEDS: predniSONE 20 MG TABLET PO SCH (07:50)
[2018-07-19] MEDS: Famotidine 20 MG TABLET PO SCH ×2 (07:50→21:34)
--- NOTE | 2018-07-19 10:43 | Internal Med Progress Note ---
Hospitalist Progress Note - Encounter Date of Encounter: 07/19/18 Time of Encounter: 10:38 - Subjective Interval History: Patient seen and examined this morning at bedside. No acute overnight events. Denies any difficulty breathing or chest pain. Patient has discomfort associated with chest tube on the left. Denies any fevers chills nausea or vomiting or diarrhea. - Exam Vitals: Temp Pulse Resp BP Pulse Ox 97.8 F 107 16 122/87 89 07/19/18 07:28 07/19/18 07:28 07/19/18 07:50 07/19/18 07:28 07/19/18 07:50 Exam: General: In no acute distress. Respiratory exam: Occasional rhonchi on Lt. Mild Lt chest crepitus. Lt chest tube with drainage. Cardiovascular exam: tachycardic, +S1, +S2. no murmur, gallop, rubs. GI/Abdominal exam: Non-tender, Non-distended, normal bowel sounds, soft, no peritoneal signs. Extremities exam: no pedal edema, pulses palpable in b/l lower extremities. no calf tenderness Neurological exam: CN II-XII intact, AO X3, no focal deficits. - Assessment and Plan (1) Pneumonia Current Visit: Yes Status: Acute (2) Loculated pleural effusion Current Visit: Yes Status: Acute (3) Acute kidney injury Current Visit: Yes Status: Resolved (4) DVT prophylaxis Current Visit: Yes Status: Acute (5) Acute and chronic respiratory failure with hypoxia Current Visit: Yes Status: Acute (6) Severe sepsis Current Visit: Yes Status: Resolved (7) COPD exacerbation Current Visit: Yes Status: Acute (8) Goals of care, counseling/discussion Current Visit: Yes Status: Chronic - Summary of Assessment and Plan Summary of Assessment and Plan: Acute and chronic respiratory failure with hypoxia - Secondary to pneumonia complicated by left loculated pleural effusion with hemothorax. - s/p left thoracotomy decortication and pleurectomy on 07/12. CT surgery following for Chest tube management. Still with Lt chest tube. Currently clamped. CXR today with trace lt apical pneumothrorax and worsening basilar airspace disease. - Pleural fluid with Cytology negative for malignancy, surgical pathology -ve for malignancy as well. Pleural fluid culture growing streptococcus 2 species. - On Unasyn per ID while inpatient. will need 6 weeks antibiotics. Will switch to switch to PO on DC. ID recommendations appreciated. - Blood culture NGTD. Legionlella and AFB negative. - Left lower lobe body fluid sample fro 24th with kelsey albicans. Will discuss with ID for need to treat given improvement with current management. - No bronch per pulm for now given clinical improvement. - c/w bronchiodilators and tapered steroids. - ID, pulmonary and CTS following. - Will need repeat CT 3-4 weeks Severe sepsis - resolved. Acute kidney injury - resolved Pneumonia - as above Loculated pleural effusion wih empyema - as above COPD exacerbation - c/w steroid taper and duonebs. will dc with symbicort DVT prophylaxis - SQ heparin - Time Spent with Patient Total time spent is greater than 50% in coordination of care (as documented) at patient's floor/unit and/or counseling patient: Internal Medicine: Result - Labs CBC & Chem 7: 07/18/18 03:40 07/18/18 03:40 - ABG Interpretation ABG results: ABG ABG pH 7.32 pH Units (7.32-7.45) 07/13/18 05:04 ABG pCO2 54 mmHg (35-45) H 07/13/18 05:04 ABG pO2 112 mmHg (85-104) H 07/13/18 05:04 ABG O2 Saturation 98 % (95-98) 07/13/18 05:04 PT/INR, D-dimer PT 13.7 Seconds (9.4-12.1) H 07/12/18 04:40 - Impressions Impressions Chest X-Ray 07/17/18 17:40 IMPRESSION: The small left-sided pneumothorax has slightly increased in the interim. One of the chest tubes has been removed. D/ / 07/17/2018 18:04:59 Blayne Corbin MD / cristofer Interpreting Provider: Blayne Corbin MD Chest X-Ray 07/19/18 08:00 IMPRESSION: 1. Unchanged trace left apical pneumothorax status post chest tube. 2. Worsening left basilar airspace disease likely atelectasis. D/ / Flakito Valverde MD / Flakito Valverde MD Interpreting Provider: Flakito Valverde MD Consult Discharge Plan - Plan Additional Instructions: Please go to Out Patient testing on August 14, 2018 around 1245PM to get an x-ray done before you go see Dr. Swann. The office is sending the order over to out patient testing at the main hospital. Referrals: Anmol Langley Jr, MD [Primary Care Provider] - 07/25/18 10:00 am () Dewayne Swann MD [Partnered Physician] - 08/14/18 1:45 pm (1) Pneumonia Qualifiers: Pneumonia type: due to unspecified organism Laterality: left Lung location: unspecified part of lung Qualified Code(s): J18.9 - Pneumonia, unspecified organism
--- NOTE | 2018-07-19 13:30 | Cardiothoracic Progress Note ---
Date of Encounter: 07/19/18 Time of Encounter: 13:29 - Assessment and plan (1) Hemothorax on left Current Visit: Yes Status: Acute The assessment and plan as outlined above was discussed with the patient and/or family members who expressed understanding and agreement. All questions were answered. last chest tube removed. if am chest xray tomorrow good, may go home (2) Acute and chronic respiratory failure with hypoxia Current Visit: Yes Status: Acute The assessment and plan as outlined above was discussed with the patient and/or family members who expressed understanding and agreement. All questions were answered. improving - Subjective Interval history: anxious and sob Vital Signs, Last 4 Hours Temp Pulse Resp BP Pulse Ox 07/19/18 11:31 97.8 F 98 17 113/86 95 Oxgyen Flow Rate Oxygen Flow Rate (LPM) 2 Clinical Data, last 8 Hours Output, Chest Tube Drainage 0 Amount [Left Lateral Chest #2] Output, Chest Tube Drainage 0 Amount [Left Lateral Chest #2] Weight 07/17/18 07/18/18 07/19/18 23:59 23:59 23:59 Weight 61.6 kg 61.5 kg - Physical Examination General: Conversant, No Apparent Distress HEENT: Atraumatic, Normocephaly Incision: No signs of infection, Dry/intact dressing, Open to air Neuro: Alert and responsive, No focal deficits noted, Cranial nerves intact, Motor nerves intact Vascular: Normal capillary refill - Labs 07/18/18 03:40 07/18/18 03:40 Consult Discharge Plan - Plan Additional Instructions: Please go to Out Patient testing on August 14, 2018 around 1245PM to get an x-ray done before you go see Dr. Swann. The office is sending the order over to out patient testing at the [facility]. Referrals: Anmol Langley Jr, MD [Primary Care Provider] - 07/25/18 10:00 am () Dewayne Swann MD [Partnered Physician] - 08/14/18 1:45 pm
--- NOTE | 2018-07-19 15:30 | Infectious Disease Progress No ---
ID Progress Note Date of Encounter: 07/19/18 Time of Encounter: 10:00 - Subjective Subjective: Patient seen and examined today at bedside with family member present. No complaints overnight. Denies fevers, chills, chest pain, or SOB. Chest tube in place. - Objective CBC & Chem 7: 07/20/18 04:30 07/20/18 04:30 - Exam Vitals: Temp Pulse Resp BP Pulse Ox 97.8 F 98 17 113/86 95 07/19/18 11:31 07/19/18 11:31 07/19/18 11:31 07/19/18 11:31 07/19/18 11:31 Exam: General: Resting comfortably in bed in no acute distress HEENT: Head is atraumatic normocephalic, pupils are equal and round, EOMI, poor dentition noted Neck: No JVD, trachea midline Chest: chest tubes removed Cardiovascular: Tachycardic, no murmurs Respiratory: Rales present bilaterally at the bases, worse on left Abdomen: Soft, nontender, no guarding or rigidity Extremities: No cyanosis clubbing or edema Neurological: Alert and oriented 3, no obvious focal neurological deficits Psych: Appropriate mood and affect - Assessment and Plan (1) Severe sepsis Status: Resolved -Patient met severe sepsis criteria for leukocytosis, tachycardia, hypoxia, tachypnea, and an KOSTAS with creatinine of 3.37 -Source likely secondary to pneumonia and empyema -Empirically treated with Zosyn then ceftriaxone -Clinically improved -CTA chest from 07/15/2018 revealed worsening volume loss and consolidation of the lateral segment right middle lobe most compatible with pneumonia -Pleural fluid cultures growing Streptococcus anginosus and Streptococcus species, concern for anaerobic or polymicrobial oral denise as the source Plan: -Continue unasyn while inpatient -On discharge can switch to oral augmentin through 08/23/2018 SNOMED Code(s): 13941374 (2) Pneumonia Status: Acute -CT chest findings compatible with multifocal pneumonia pneumonia -Likely source for patient's severe sepsis and loculated pleural effusion -Pleural fluid cultures are growing Streptococcus anginosus, concern for anaerobic or polymicrobial oral denise as the source -continue Unasyn while inpatient, switch to oral Augmentin through 08/23/2018 Qualifiers: Pneumonia type: due to unspecified organism Laterality: left Lung lo cation: unspecified part of lung Qualified Code(s): J18.9 - Pneumonia, unspecified organism SNOMED Code(s): 838249968 (3) Empyema lung Status: Acute -Drained by interventional radiology and pleural fluid culture grew Streptococcus anginosus and a second yet unidentified Streptococcus species -Status post decortication and pleurodesis by cardiothoracic surgery -Chest tubes removed today SNOMED Code(s): 942346764 (4) Leukocytosis Status: Acute Likely secondary to steroids Qualifiers: Leukocytosis type: unspecified Qualified Code(s): D72.829 - Elevated white blood cell count, unspecified SNOMED Code(s): 220632869, 003264175 (5) Acute and chronic respiratory failure with hypoxia Status: Acute -Patient presented with hypoxia and tachypnea -ABG on presentation revealed a pH of 7.17 with an elevated PCO2 of 81 -Likely secondary to pneumonia and loculated pleural effusion in the setting of emphysema -Moderate apical emphysematous change on CT scan noted -Oxygen demand decreasing SNOMED Code(s): 86857473, 488744855 (6) Tobacco abuse Status: Acute -Patient has a 66-[id number]-[id number] smoking history as she states that she smoked 2 packs per day for the past 30 years -Recommend prescribing nicotine patch while inpatient SNOMED Code(s): 878939439 Consult Discharge Plan - Plan Instructions: Pneumonia (DC) Additional Instructions: Please go to Out Patient testing on July 23, 2018 around 0940AM to get an x-ray done before you go see Dr. Swann. The office is sending the order over to out patient testing at the [facility]. Referrals: Anmol Langley Jr, MD [Primary Care Provider] - 07/25/18 10:00 am () Dewayne Swann MD [Partnered Physician] - 07/23/18 10:40 am Prescriptions: Amoxicillin/Clavulanate [Augmentin] 875 mg PO BIDWM 35 Days #70 tablet predniSONE [PredniSONE] See Taper PO DAILY 9 Days #18 tablet Budesonide/Formoterol 160/4.5 [Symbicort 160/4.5] 2 puff IH BIDR #1 [id number] - Attending Attestation I examined this patient and my medical decision-making was reviewed with the Resident Physician. I agree with the documented findings, disposition and treatment plan as described except to the extent set forth below. Assessment and Plan: 1. severe sepsis secondary multifocal pneumonia and empyema 2. empyema status post left-sided thoracotomy with decortication and pleurectomy 07/12/2018. Intra-Op cultures positive for Streptococcus anginosos and Streptococcus species 3. space multifocal pneumonia 4. tobacco abuse with history of [id number] 5. Leukocytosis likely secondary to steroids 6. Hemoptysis likely secondary to empyema and multifocal pneumonia. BAL with negative AFB for TB. Recommendations: switch to unasyn while in hospital d/c on Augmenting through August 23 probiotics as outpatient to minimize C diff; patient aware Discussed with Dr. Swann. he is okay with oral antibiotics duration of treatmet with antibiotics 6 weeks total
[2018-07-20] MEDS: Ampicillin/Sulbactam 3,000 MG in 0.9 % Sodium Chloride Mini Bag 100 ML IVPB SCH ×3 (00:16→11:14)
[2018-07-20] MEDS: Ipratropium/Albuterol Neb 3 ML IH SCH ×4 (00:35→11:23)
[2018-07-20 04:57] LABS: Hematocrit 31.5 % (35.3-44.9); Mean Corpuscular HGB Conc 30.8 g/dL (31.6-35.5); Mean Corpuscular Hemoglobin 27.9 pg (28.0-33.3); Mean Corpuscular Volume 90.5 fL (83.0-100.0); Mean Platelet Volume 10.2 fL (9.4-12.4); Platelet Count 465 K/mcL (140-400); Red Blood Count 3.48 M/mcL (3.82-4.97); Red Cell Distribution Width 16.4 % (11.5-14.5); Segmented Neutrophils % 58.7 %
[2018-07-20 04:58] LABS: Basophils % 0.1 %; Eosinophils # 0.5 K/mcL (0.0-0.6); Lymphocytes # 2.7 K/mcL (0.6-4.6); Lymphocytes % 26.9 %; Monocytes # 0.8 K/mcL (0.0-1.3); Monocytes % 8.3 %; Neutrophils # 5.9 K/mcL (1.6-8.9)
[2018-07-20 05:09] LABS: Hemoglobin 9.7 g/dL (11.5-15.4)
[2018-07-20 05:11] LABS: BUN/Creatinine Ratio 35 (6-26); Blood Urea Nitrogen 16 mg/dL (8-23); Calcium 8.1 mg/dL (8.6-10.3); Carbon Dioxide 37 mEq/L (23-29); Chloride 102 mEq/L (98-107); Glucose 99 mg/dL (70-105); Osmolality,Calculated 291 (280-300); Potassium 3.5 mEq/L (3.5-5.1); Sodium 140 mEq/L (136-145); eGFR For Non-African Americans > 60 (> 60)
[2018-07-20] MEDS: *HR* Heparin 5,000 UNIT/ML VIAL SQ SCH (05:59)
[2018-07-20] MEDS: Famotidine 20 MG TABLET PO SCH (08:13)
[2018-07-20] MEDS: predniSONE 20 MG TABLET PO SCH (08:13)
[2018-07-20] MEDS: *HR* HYDROcodone/Acet 5/325 mg TABLET PO PRN (08:19)
--- NOTE | 2018-07-20 09:09 | Cardiothoracic Progress Note ---
Date of Encounter: 07/20/18 Time of Encounter: 09:07 - Assessment and plan (1) Hemothorax on left Current Visit: Yes Status: Acute The assessment and plan as outlined above was discussed with the patient and/or family members who expressed understanding and agreement. All questions were answered. looks good. rounded with nurse. contacted hospitalist. may go home with follow up in my office with chest xray on monday. reviewed wound care. (2) Acute and chronic respiratory failure with hypoxia Current Visit: Yes Status: Acute The assessment and plan as outlined above was discussed with the patient and/or family members who expressed understanding and agreement. All questions were answered. improving (3) Empyema of pleural space Current Visit: Yes Status: Acute The assessment and plan as outlined above was discussed with the patient and/or family members who expressed understanding and agreement. All questions were answered. antibx for 4 weeks. - Subjective Interval history: anxious and sob Vital Signs, Last 4 Hours Temp Pulse Resp BP Pulse Ox 07/20/18 07:57 20 93 07/20/18 06:19 98.1 F 90 20 107/66 93 Oxgyen Flow Rate Oxygen Flow Rate (LPM) 2 Clinical Data, last 8 Hours Output, Urine Amount 0 Output, Urine Amount 0 Weight 07/18/18 07/19/18 07/20/18 23:59 23:59 23:59 Weight 61.5 kg 57.4 kg - Physical Examination General: Conversant, No Apparent Distress HEENT: Atraumatic, Normocephaly, Trachea midline Cardiac: Reg Rate and Rhythm, Normal S1 and S2 Incision: No signs of infection, Dry/intact dressing Chest tubes: Crepitus Lungs: Normal Breath Sounds Neuro: Alert and responsive, No focal deficits noted, Cranial nerves intact, Motor nerves intact Abdomen: Soft - Labs 07/20/18 04:30 07/20/18 04:30 Lab Results, Last 24 hours 07/20/18 07/20/18 04:30 04:30 WBC 10.1 Hgb 9.7 L D Hct 31.5 L Plt Count 465 H Sodium 140 Potassium 3.5 Chloride 102 Carbon Dioxide 37 H BUN 16 Creatinine 0.46 L Glucose 99 Calcium 8.1 L - Imaging Chest Xray: image reviewed Consult Discharge Plan - Plan Additional Instructions: Please go to Out Patient testing on July 23, 2018 around 0940AM to get an x-ray done before you go see Dr. Swann. The office is sending the order over to out patient testing at the main hospital. Referrals: Anmol Langley Jr, MD [Primary Care Provider] - 07/25/18 10:00 am () Dewayne Swann MD [Partnered Physician] - 07/23/18 10:40 am
--- NOTE | 2018-07-20 11:33 | Discharge Summary ---
- NOTES TO OUTPATIENT PROVIDER Notes to Outpatient Provider: Patient to continue antibiotics for 5 more weeks. Patient will need repeat CT scan in 3-4 weeks. Patient should follow up with CT surgery and pulmonology as outpatient. Patient will need CBC and renal function monitoring weekly Orders not resulted at time of discharge: Pending orders 07/11/18 AFB Culture, Respiratory [TB] Routine AFB Smear [TB] Routine Fungal Culture [MYC] Routine Legionella Antigen [RM] Stat Legionella Culture [RM] Routine Streptococcal pneumoniae urin antigen [S. Pneumoniae Antigen] [RM] Stat 07/11/18 15:50 Culture,Body Fluid [RM] Routine Date of Encounter: 07/20/18 Time of Encounter: 10:03 - Discharge Diagnosis (1) Pneumonia Priority: Primary Status: Acute Qualifiers: Pneumonia type: due to unspecified organism Laterality: left Lung location: unspecified part of lung Qualified Code(s): J18.9 - Pneumonia, unspecified organism (2) Loculated pleural effusion Priority: Primary Status: Acute (3) Acute kidney injury Priority: Primary Status: Resolved (4) DVT prophylaxis Priority: Secondary Status: Acute (5) Acute and chronic respiratory failure with hypoxia Priority: Primary Status: Acute (6) Severe sepsis Priority: Primary Status: Resolved (7) COPD exacerbation Priority: Primary Status: Acute (8) Goals of care, counseling/discussion Priority: Secondary Status: Chronic (9) Empyema lung Priority: Primary Status: Acute (10) Hemothorax on left Priority: Primary Status: Acute Hospital course: Ms. Randall is a 58 year old female with past medical history spinal stenosis came in with shortness of breath for about 2-3 months. Was associated with some hemoptysis. Patient was found to have acute hypoxic respiratory failure, sepsis and CT scan showed pleural effusion which was loculated suspicious for empyema. Patient had IR guided left sided chest tube placement. CT surgery was consulted. Patient underwent bronchoscopy with aspiration, left thoracotomy decortication and pleurectomy on 07/12/18. Patient was continued on broad- spectrum antibiotics which was later switched to Rocephin and metronidazole which was change to Unasyn per infectious disease. Patient did not need any further bronchoscopy. Cytology was negative for malignancy as well as surgical pathology was negative for malignancy. Pleural fluid culture grew 2 streptococcus species. Patient was continued on DuoNeb nebulizers and steroids. CT surgery was following for managing chest tube which were taken out one by one. Patient gradually improved and remained stable. Patient's chest x-ray remained stable. CT surgery was okay to discharge patient home to follow up closely with an x-ray as outpatient. Patient was otherwise stable to be discharged home to finish antibiotic therapy for 5 more weeks till 08/23/18 with Augmentin. Patient will need monitoring of CBC and renal function weekly. Discharge discussed with: patient, family, nurse, social work, makeup sales consultant - Time Spent with Patient Total time spent providing and/or coordinating discharge services: Time spent: Greater than 30 minutes (45) - Discharge Medications Prescriptions: New Amoxicillin/Clavulanate [Augmentin] 875 mg PO BIDWM 35 Days #70 tablet predniSONE [PredniSONE] See Taper PO DAILY 9 Days #18 tablet Budesonide/Formoterol 160/4.5 [Symbicort 160/4.5] 2 puff IH BIDR #1 hfa.aer.ad Home Medications: Amoxicillin/Clavulanate [Augmentin] 875 mg PO BIDWM 35 Days #70 tablet 07/20/18 [Rx] Budesonide/Formoterol 160/4.5 [Symbicort 160/4.5] 2 puff IH BIDR #1 hfa.aer.ad 07/20/18 [Rx] predniSONE [PredniSONE] See Taper PO DAILY 9 Days #18 tablet 07/20/18 [Rx] Allergies/Adverse Reactions: Allergy/AdvReac Type Severity Reaction Status Date / Time No Known Allergies Allergy Verified 07/11/18 16:11 Date of admission: 07/11/18 15:01 Primary care physician: Anmol Langley Jr, MD Consults: 07/11/18 18:11 Consult to Retail Support Specialist [CONS] Routine Reason for SW Consult: 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 pleural fluid +ve for GPC likely strep. On IV Garth but worsening WBC Call Completed: Yes 07/16/18 10:43 Consult to Pulmonology [CONS] Routine Consulting Provider: Pulm Crit Care & Sleep Yenifer Reason for Consult: PNA with empyema status post chest tube. Right middle lobe collapse with mucous plugging Call Completed: Yes 07/17/18 09:47 Consult to Physical Therapy [CONS] Routine Comment: Evaluate, develop and implement POC Reason for Consult: deconditioning, d/c planning Does patient have active BEDREST order?: No Is patient medically & hemodynamically stable?: Yes Patient assessed for mobility or mobilized this visit?: No OT [Consult to Occupational Therapy] [CONS] Routine Comment: Evaluate, develop and implement POC Reason for Consult: deconditioning, d/c planning Does patient have active BEDREST order?: No Is patient medically & hemodynamically stable?: Yes Patient assessed for mobility or mobilized this visit?: No 07/18/18 08:56 Consult to Nurse Navigator [CONS] Routine Comment: pneumonia Discharging clinician: Ry Caba - Constitutional Vitals: Temp Pulse Resp BP Pulse Ox 98.1 F 90 20 107/66 93 07/20/18 06:19 07/20/18 06:19 07/20/18 07:57 07/20/18 06:19 07/20/18 10:26 Exam: General: In no acute distress. Respiratory exam: Occasional rhonchi on Lt. Cardiovascular exam: RRR, +S1, +S2. no murmur, gallop, rubs. GI/Abdominal exam: Non-tender, Non-distended, normal bowel sounds, soft, no peritoneal signs. Extremities exam: no pedal edema, pulses palpable in b/l lower extremities. no calf tenderness Neurological exam: CN II-XII intact, AO X3, no focal deficits. - Patient Status Disposition: Home, Self-Care Condition: Critical - Discharge Instructions Instructions: Pneumonia (DC) Follow Up With: Anmol Langley Jr, MD [Primary Care Provider] - 07/25/18 10:00 am () Dewayne Swann MD [Partnered Physician] - 07/23/18 10:40 am Additional Instructions: Please go to Out Patient testing on July 23, 2018 around 0940AM to get an x-ray done before you go see Dr. Swann. The office is sending the order over to out patient testing at the [facility].
[2018-07-20 11:39] VITALS: BP 104/74
== END 2018-07-20 13:18 | disposition home or self-care (01) | DRG 853 ==
LOC: EMEROOARM 12:25 → ICNU 15:01 → SUATTDRO 15:01 → ICNU 16:15 → 2NNU 07-13 22:11
PROVIDERS: ADMIT Internal Medicine Hospice and Palliative Medicine; ATTEND Internal Medicine

== ENCOUNTER 2019-07-16 14:21 | Observation (INO) ==
[2019-07-16] MEDS ORDERED: Ipratropium/Albuterol Neb 3 ML IH STA (14:48)
[2019-07-16] MEDS ORDERED: Ipratropium/Albuterol Neb 3 ML IH ONE (14:52)
[2019-07-16 15:11] LABS: Basophils # 0.1 K/mcL (0.0-0.2); Basophils % 0.8 %; Eosinophils # 0.5 K/mcL (0.0-0.6); Eosinophils % 7.2 %; Hemoglobin 13.7 g/dL (11.5-15.4); Immature Granulocytes % 0.3 % (0-4); Lymphocytes # 1.5 K/mcL (0.6-4.6); Lymphocytes % 22.2 %; Mean Corpuscular HGB Conc 31.9 g/dL (31.6-35.5); Mean Corpuscular Hemoglobin 29.3 pg (28.0-33.3); Mean Corpuscular Volume 91.9 fL (83.0-100.0); Mean Platelet Volume 10.2 fL (9.4-12.4); Monocytes # 0.6 K/mcL (0.0-1.3); Monocytes % 8.6 %; Neutrophils # 4.1 K/mcL (1.6-8.9); Platelet Count 214 K/mcL (140-400); Red Blood Count 4.68 M/mcL (3.82-4.97); Red Cell Distribution Width 13.2 % (11.5-14.5); Segmented Neutrophils % 60.9 %; White Blood Count 6.7 K/mcL (4.3-11.1)
[2019-07-16 15:33] LABS: BUN/Creatinine Ratio 22 (6-26); Blood Urea Nitrogen 20 mg/dL (8-23); Calcium 9.7 mg/dL (8.6-10.3); Carbon Dioxide 29 mEq/L (23-29); Chloride 103 mEq/L (98-107); Glucose 157 mg/dL (70-105); Osmolality,Calculated 298 (280-300); Potassium 3.7 mEq/L (3.5-5.1); Sodium 141 mEq/L (136-145); Troponin I < 0.03 ng/mL (< 0.04); eGFR For African Americans > 60 (> 60); eGFR For Non-African Americans > 60 (> 60)
[2019-07-16] MEDS ORDERED: methylPREDNISolone 125 MG/2 ML VIAL IVP ONE (16:32)
[2019-07-16] MEDS ORDERED: Doxycycline 100 MG CAPSULE PO ONE (16:32)
[2019-07-16] MEDS ORDERED: Naloxone 0.4 MG/ML INJ IVP PRN (18:28)
[2019-07-16] MEDS ORDERED: Ondansetron ODT 4 MG TAB.RAPDIS SL PRN (18:28)
[2019-07-16] MEDS ORDERED: Acetaminophen 325 MG TABLET PO PRN (18:28)
[2019-07-16] MEDS: Ipratropium 1 PUFF INHALER IH SCH ×2 (20:42→23:29)
[2019-07-16] MEDS: Budesonide/Formoterol 160/4.5 1 PUFF INH IH SCH (20:43)
[2019-07-17] MEDS: Ipratropium 1 PUFF INHALER IH SCH ×6 (03:28→23:58)
[2019-07-17 04:16] LABS: Hematocrit 41.4 % (35.3-44.9); Hemoglobin 13.1 g/dL (11.5-15.4); Mean Corpuscular HGB Conc 31.6 g/dL (31.6-35.5); Mean Corpuscular Hemoglobin 29.2 pg (28.0-33.3); Mean Corpuscular Volume 92.4 fL (83.0-100.0); Mean Platelet Volume 10.5 fL (9.4-12.4); Platelet Count 215 K/mcL (140-400); Red Blood Count 4.48 M/mcL (3.82-4.97); White Blood Count 4.4 K/mcL (4.3-11.1)
[2019-07-17 04:35] LABS: BUN/Creatinine Ratio 33 (6-26); Blood Urea Nitrogen 26 mg/dL (8-23); Calcium 9.7 mg/dL (8.6-10.3); Carbon Dioxide 29 mEq/L (23-29); Chloride 103 mEq/L (98-107); Glucose 182 mg/dL (70-105); Osmolality,Calculated 299 (280-300); Sodium 140 mEq/L (136-145); eGFR For African Americans > 60 (> 60); eGFR For Non-African Americans > 60 (> 60)
[2019-07-17] MEDS ORDERED: *HR* Heparin 5,000 UNIT/ML VIAL SQ SCH (06:00)
[2019-07-17] MEDS: Budesonide/Formoterol 160/4.5 1 PUFF INH IH SCH ×2 (07:43→19:55)
[2019-07-17] MEDS: Doxycycline 100 MG CAPSULE PO SCH ×2 (08:37→21:19)
[2019-07-17] MEDS: predniSONE 20 MG TABLET PO SCH (08:37)
[2019-07-17] MEDS: ALPRAZolam 0.5 MG TABLET PO PRN (16:15)
[2019-07-17] MEDS ORDERED: *HR* Enoxaparin 40 MG/0.4 ML SYRINGE SQ SCH (21:00)
[2019-07-18] MEDS: ALPRAZolam 0.5 MG TABLET PO PRN (00:21)
[2019-07-18 01:32] LABS: Hematocrit 40.2 % (35.3-44.9); Hemoglobin 12.4 g/dL (11.5-15.4); Mean Corpuscular HGB Conc 30.8 g/dL (31.6-35.5); Mean Corpuscular Volume 94.1 fL (83.0-100.0); Mean Platelet Volume 10.7 fL (9.4-12.4); Platelet Count 206 K/mcL (140-400); Red Blood Count 4.27 M/mcL (3.82-4.97); Red Cell Distribution Width 13.3 % (11.5-14.5); White Blood Count 8.6 K/mcL (4.3-11.1)
[2019-07-18 01:55] LABS: BUN/Creatinine Ratio 33 (6-26); Blood Urea Nitrogen 24 mg/dL (8-23); Calcium 9.4 mg/dL (8.6-10.3); Carbon Dioxide 29 mEq/L (23-29); Chloride 99 mEq/L (98-107); Glucose 132 mg/dL (70-105); Osmolality,Calculated 300 (280-300); Potassium 4.2 mEq/L (3.5-5.1); Sodium 142 mEq/L (136-145); eGFR For African Americans > 60 (> 60); eGFR For Non-African Americans > 60 (> 60)
[2019-07-18] MEDS: Ipratropium 1 PUFF INHALER IH SCH ×3 (03:25→11:49)
[2019-07-18 07:13] VITALS: BP 106/72
[2019-07-18] MEDS: Budesonide/Formoterol 160/4.5 1 PUFF INH IH SCH (08:17)
[2019-07-18] MEDS: predniSONE 20 MG TABLET PO SCH (08:28)
[2019-07-18] MEDS: Doxycycline 100 MG CAPSULE PO SCH (08:28)
== END 2019-07-18 12:14 | disposition home or self-care (01) ==
LOC: 3BNU 14:21 → EMEROOARM 14:21 → SUATTDRO 18:06 → 2NENU 18:31 → 3BNU 07-17 21:00
PROVIDERS: ADMIT Internal Medicine; ATTEND Internal Medicine

== ENCOUNTER 2021-04-16 08:57 | Inpatient (IN) ==
[2021-04-16 09:35] LABS: Hematocrit 39.5 % (35.3-44.9); Hemoglobin 12.5 g/dL (11.5-15.4); Mean Corpuscular HGB Conc 31.6 g/dL (31.6-35.5); Mean Corpuscular Hemoglobin 28.9 pg (28.0-33.3); Mean Corpuscular Volume 91.2 fL (83.0-100.0); Mean Platelet Volume 11.2 fL (9.4-12.4); Monocytes # 0.3 K/mcL (0.0-1.3); Platelet Count 187 K/mcL (140-400); Red Blood Count 4.33 M/mcL (3.82-4.97); Red Cell Distribution Width 13.9 % (11.5-14.5); White Blood Count 13.3 K/mcL (4.3-11.1)
[2021-04-16 09:41] LABS: VBG HCO3 30 mEq/L (21-27); VBG PCO2 46 mmHg (41-51); VBG PH 7.42 pH Units (7.32-7.42); VBG PO2 109 mmHg (25-50)
[2021-04-16 09:45] LABS: Activated Partial Thrombo Time 32.6 Seconds (26.0-36.0)
[2021-04-16 10:07] LABS: Alanine Aminotransferase 21 Units/L (7-52); Albumin/Globulin Ratio 0.9 (1.1-2.2); Alkaline Phosphatase 143 Units/L (34-104); Aspartate Amino Transferase 33 Units/L (13-39); BUN/Creatinine Ratio 41 (6-26); Bilirubin,Direct 0.4 mg/dL (0.0-0.2); Bilirubin,Indirect 0.5 mg/dL (0.0-1.0); Bilirubin,Total 0.9 mg/dL (0.3-1.0); Blood Urea Nitrogen 34 mg/dL (8-23); Calcium 8.9 mg/dL (8.6-10.3); Carbon Dioxide 29 mEq/L (23-29); Chloride 102 mEq/L (98-107); Globulin 3.2 g/dL (2.4-3.5); Glucose 88 mg/dL (70-105); Lymphocytes # 0.8 K/mcL (0.6-4.6); Neutrophils # 12.2 K/mcL (1.6-8.9); Osmolality,Calculated 301 (280-300); Platelet Estimate Normal (Normal); Potassium 4.1 mEq/L (3.5-5.1); Sodium 142 mEq/L (136-145); Total Protein 6.2 g/dL (6.4-8.9); Troponin I < 0.03 ng/mL (< 0.04); eGFR For African Americans > 60 (> 60); eGFR For Non-African Americans > 60 (> 60)
[2021-04-16] MEDS ORDERED: Isovue-370 500 ML BOTTLE IVP ONE (10:19)
[2021-04-16 12:00] LABS: Influenza A PCR Negative (Negative); Influenza B PCR Negative (Negative); Resp. Syncytial Virus PCR Negative (Negative)
[2021-04-16 12:02] LABS: SARS-CoV-2 by PCR (In House) Positive (Negative)
[2021-04-16 12:12] LABS: C-Reactive Protein > 300 mg/L (Less than 10)
[2021-04-16] MEDS ORDERED: Naloxone 0.4 MG/ML INJ IVP PRN (13:04)
[2021-04-16] MEDS ORDERED: Remdesivir 200 MG in 0.9 % Sodium Chloride 100 ML IVPB ONE (15:00)
[2021-04-16] MEDS: levoFLOXacin 750 MG/150 ML 750 MG/150 ML BAG IVPB SCH (17:46)
[2021-04-16] MEDS: Budesonide/Formoterol 160/4.5 1 PUFF INH IH SCH (20:13)
[2021-04-17] MEDS: ALPRAZolam 0.5 MG TABLET PO PRN ×4 (01:32→23:17)
[2021-04-17 04:32] LABS: Hematocrit 35.6 % (35.3-44.9); Hemoglobin 11.5 g/dL (11.5-15.4); Lymphocytes # 0.4 K/mcL (0.6-4.6); Mean Corpuscular HGB Conc 32.3 g/dL (31.6-35.5); Mean Corpuscular Hemoglobin 29.5 pg (28.0-33.3); Mean Corpuscular Volume 91.3 fL (83.0-100.0); Mean Platelet Volume 10.8 fL (9.4-12.4); Platelet Count 194 K/mcL (140-400); Red Cell Distribution Width 13.9 % (11.5-14.5); White Blood Count 12.1 K/mcL (4.3-11.1)
[2021-04-17 04:52] LABS: Alanine Aminotransferase 19 Units/L (7-52); Albumin 2.9 g/dL (3.5-5.7); Albumin/Globulin Ratio 0.9 (1.1-2.2); Alkaline Phosphatase 130 Units/L (34-104); Aspartate Amino Transferase 26 Units/L (13-39); BUN/Creatinine Ratio 49 (6-26); Bilirubin,Direct 0.2 mg/dL (0.0-0.2); Bilirubin,Indirect 0.4 mg/dL (0.0-1.0); Bilirubin,Total 0.6 mg/dL (0.3-1.0); Blood Urea Nitrogen 36 mg/dL (8-23); Calcium 9.4 mg/dL (8.6-10.3); Carbon Dioxide 33 mEq/L (23-29); Chloride 101 mEq/L (98-107); Globulin 3.3 g/dL (2.4-3.5); Glucose 115 mg/dL (70-105); Osmolality,Calculated 301 (280-300); Sodium 141 mEq/L (136-145); Total Protein 6.2 g/dL (6.4-8.9); eGFR For African Americans > 60 (> 60); eGFR For Non-African Americans > 60 (> 60)
[2021-04-17 05:39] LABS: Monocytes # 0.5 K/mcL (0.0-1.3); Neutrophils # 11.3 K/mcL (1.6-8.9)
[2021-04-17 05:41] LABS: Platelet Estimate Normal (Normal); Reactive Lymphocytes Present (Not Present)
[2021-04-17] MEDS ORDERED: *HR* Enoxaparin 40 MG/0.4 ML SYRINGE SQ SCH (06:00)
[2021-04-17] MEDS: Budesonide/Formoterol 160/4.5 1 PUFF INH IH SCH ×2 (07:54→20:29)
[2021-04-17] MEDS: Multivit/Ca/Min/Fe/FA 1 TAB TABLET PO SCH (08:48)
[2021-04-17] MEDS: levoFLOXacin 750 MG/150 ML 750 MG/150 ML BAG IVPB SCH (08:48)
[2021-04-17] MEDS: *HR* Metoprolol 5 MG/5 ML VIAL IVP PRN ×2 (10:33→16:39)
[2021-04-17] MEDS ORDERED: 0.9 % Sodium Chloride 1,000 ML ONE (10:39)
[2021-04-17] MEDS ORDERED: 0.9 % Sodium Chloride 1,000 ML IVC ONE ×2 (10:39→14:09)
[2021-04-17] MEDS: Remdesivir 100 MG in 0.9 % Sodium Chloride 100 ML IVPB SCH (12:14)
[2021-04-17] MEDS: Metoprolol XL (24 HR) Succ 25 MG TAB.ER.24H PO SCH (13:20)
[2021-04-17] MEDS: 0.9 % Sodium Chloride 1,000 ML IVC SCH ×2 (13:21→23:10)
[2021-04-17] MEDS ORDERED: Perflutren Lipid Microsphere 1.3 ML in 0.9 % Sodium Chloride 8.7 ML IVP PRN (17:29)
[2021-04-17] MEDS: *HR* Rivaroxaban 10 MG TABLET PO SCH (18:03)
[2021-04-18] MEDS: ALPRAZolam 0.5 MG TABLET PO PRN (00:14)
[2021-04-18] MEDS: Budesonide/Formoterol 160/4.5 1 PUFF INH IH SCH ×2 (07:46→20:17)
[2021-04-18] MEDS: Metoprolol XL (24 HR) Succ 25 MG TAB.ER.24H PO SCH (08:51)
[2021-04-18] MEDS: Multivit/Ca/Min/Fe/FA 1 TAB TABLET PO SCH (08:51)
[2021-04-18] MEDS: levoFLOXacin 750 MG/150 ML 750 MG/150 ML BAG IVPB SCH (08:53)
[2021-04-18] MEDS: Remdesivir 100 MG in 0.9 % Sodium Chloride 100 ML IVPB SCH (14:33)
[2021-04-18] MEDS: *HR* Rivaroxaban 10 MG TABLET PO SCH (16:16)
[2021-04-19] MEDS: Budesonide/Formoterol 160/4.5 1 PUFF INH IH SCH ×2 (07:39→20:22)
[2021-04-19 09:09] LABS: Basophils # 0.1 K/mcL (0.0-0.2); Hematocrit 38.1 % (35.3-44.9); Hemoglobin 11.7 g/dL (11.5-15.4); Immature Granulocytes % 4.2 % (0-4); Lymphocytes # 0.8 K/mcL (0.6-4.6); Lymphocytes % 8.3 %; Mean Corpuscular HGB Conc 30.7 g/dL (31.6-35.5); Mean Corpuscular Volume 94.3 fL (83.0-100.0); Mean Platelet Volume 10.8 fL (9.4-12.4); Monocytes # 0.9 K/mcL (0.0-1.3); Neutrophils # 7.8 K/mcL (1.6-8.9); Platelet Count 202 K/mcL (140-400); Red Blood Count 4.04 M/mcL (3.82-4.97); Red Cell Distribution Width 14.1 % (11.5-14.5); Segmented Neutrophils % 77.5 %; White Blood Count 10.1 K/mcL (4.3-11.1)
[2021-04-19 09:31] LABS: Alanine Aminotransferase 23 Units/L (7-52); Albumin 2.8 g/dL (3.5-5.7); Albumin/Globulin Ratio 0.9 (1.1-2.2); Alkaline Phosphatase 118 Units/L (34-104); Aspartate Amino Transferase 26 Units/L (13-39); BUN/Creatinine Ratio 59 (6-26); Bilirubin,Direct 0.1 mg/dL (0.0-0.2); Bilirubin,Indirect 0.3 mg/dL (0.0-1.0); Bilirubin,Total 0.4 mg/dL (0.3-1.0); Blood Urea Nitrogen 34 mg/dL (8-23); Calcium 8.8 mg/dL (8.6-10.3); Carbon Dioxide 29 mEq/L (23-29); Chloride 105 mEq/L (98-107); Glucose 102 mg/dL (70-105); Osmolality,Calculated 300 (280-300); Sodium 141 mEq/L (136-145); Total Protein 5.8 g/dL (6.4-8.9); eGFR For African Americans > 60 (> 60); eGFR For Non-African Americans > 60 (> 60)
[2021-04-19] MEDS: levoFLOXacin 750 MG/150 ML 750 MG/150 ML BAG IVPB SCH (10:17)
[2021-04-19] MEDS: Multivit/Ca/Min/Fe/FA 1 TAB TABLET PO SCH (10:17)
[2021-04-19] MEDS: Metoprolol XL (24 HR) Succ 25 MG TAB.ER.24H PO SCH ×2 (10:17→22:02)
[2021-04-19 10:37] LABS: C-Reactive Protein 79 mg/L (Less than 10)
[2021-04-19] MEDS: ALPRAZolam 0.5 MG TABLET PO PRN ×2 (14:29→22:03)
[2021-04-19] MEDS: Remdesivir 100 MG in 0.9 % Sodium Chloride 100 ML IVPB SCH (15:43)
[2021-04-19] MEDS: *HR* Rivaroxaban 10 MG TABLET PO SCH (16:50)
[2021-04-20 06:41] LABS: Basophils # 0.1 K/mcL (0.0-0.2); Basophils % 0.9 %; Hematocrit 37.3 % (35.3-44.9); Hemoglobin 11.7 g/dL (11.5-15.4); Lymphocytes # 1.3 K/mcL (0.6-4.6); Lymphocytes % 11.7 %; Mean Corpuscular HGB Conc 31.4 g/dL (31.6-35.5); Mean Corpuscular Hemoglobin 28.7 pg (28.0-33.3); Mean Corpuscular Volume 91.6 fL (83.0-100.0); Mean Platelet Volume 10.8 fL (9.4-12.4); Monocytes # 0.9 K/mcL (0.0-1.3); Monocytes % 8.3 %; Neutrophils # 8.3 K/mcL (1.6-8.9); Platelet Count 283 K/mcL (140-400); Red Blood Count 4.07 M/mcL (3.82-4.97); Red Cell Distribution Width 13.9 % (11.5-14.5); Segmented Neutrophils % 74.1 %; White Blood Count 11.2 K/mcL (4.3-11.1)
[2021-04-20 07:12] LABS: Albumin 2.8 g/dL (3.5-5.7); Bilirubin,Direct 0.1 mg/dL (0.0-0.2); Bilirubin,Indirect 0.4 mg/dL (0.0-1.0); Bilirubin,Total 0.5 mg/dL (0.3-1.0); Globulin 2.7 g/dL (2.4-3.5); Total Protein 5.5 g/dL (6.4-8.9)
[2021-04-20 07:15] LABS: BUN/Creatinine Ratio 67 (6-26); Blood Urea Nitrogen 33 mg/dL (8-23); Calcium 8.4 mg/dL (8.6-10.3); Carbon Dioxide 30 mEq/L (23-29); Chloride 105 mEq/L (98-107); Glucose 72 mg/dL (70-105); Osmolality,Calculated 298 (280-300); Sodium 141 mEq/L (136-145); eGFR For African Americans > 60 (> 60); eGFR For Non-African Americans > 60 (> 60)
[2021-04-20] MEDS: Budesonide/Formoterol 160/4.5 1 PUFF INH IH SCH ×2 (07:38→20:58)
[2021-04-20] MEDS: levoFLOXacin 750 MG/150 ML 750 MG/150 ML BAG IVPB SCH (09:59)
[2021-04-20] MEDS: Multivit/Ca/Min/Fe/FA 1 TAB TABLET PO SCH (09:59)
[2021-04-20] MEDS: Metoprolol XL (24 HR) Succ 25 MG TAB.ER.24H PO SCH ×2 (10:00→21:41)
[2021-04-20] MEDS: ALPRAZolam 0.5 MG TABLET PO PRN ×2 (11:15→19:02)
[2021-04-20] MEDS: Acetaminophen 325 MG TABLET PO PRN (11:15)
[2021-04-20] MEDS ORDERED: Benzonatate 100 MG CAPSULE PO PRN (12:21)
[2021-04-20] MEDS ORDERED: ALPRAZolam 0.5 MG TABLET PO ONE (14:59)
[2021-04-20] MEDS: Remdesivir 100 MG in 0.9 % Sodium Chloride 100 ML IVPB SCH (15:26)
[2021-04-20] MEDS: *HR* Rivaroxaban 10 MG TABLET PO SCH (18:15)
[2021-04-20] MEDS: Nystatin SUSP 5 ML UD.LIQ PO SCH (21:42)
[2021-04-21] MEDS: ALPRAZolam 0.5 MG TABLET PO PRN ×3 (03:13→22:12)
[2021-04-21 07:13] LABS: Basophils % 0.2 %; Eosinophils % 0.4 %; Hematocrit 38.1 % (35.3-44.9); Hemoglobin 12.3 g/dL (11.5-15.4); Immature Granulocytes % 5.9 % (0-4); Lymphocytes # 1.6 K/mcL (0.6-4.6); Lymphocytes % 15.6 %; Mean Corpuscular HGB Conc 32.3 g/dL (31.6-35.5); Mean Corpuscular Hemoglobin 28.9 pg (28.0-33.3); Mean Corpuscular Volume 89.6 fL (83.0-100.0); Mean Platelet Volume 10.5 fL (9.4-12.4); Monocytes # 0.8 K/mcL (0.0-1.3); Monocytes % 7.6 %; Neutrophils # 7.4 K/mcL (1.6-8.9); Platelet Count 308 K/mcL (140-400); Red Blood Count 4.25 M/mcL (3.82-4.97); Red Cell Distribution Width 13.9 % (11.5-14.5); Segmented Neutrophils % 70.3 %; White Blood Count 10.5 K/mcL (4.3-11.1)
[2021-04-21] MEDS: Budesonide/Formoterol 160/4.5 1 PUFF INH IH SCH ×2 (08:37→20:22)
[2021-04-21 10:21] LABS: Alanine Aminotransferase 24 Units/L (7-52); Albumin 2.7 g/dL (3.5-5.7); Alkaline Phosphatase 102 Units/L (34-104); Aspartate Amino Transferase 22 Units/L (13-39); BUN/Creatinine Ratio 47 (6-26); Bilirubin,Direct 0.1 mg/dL (0.0-0.2); Bilirubin,Indirect 0.5 mg/dL (0.0-1.0); Bilirubin,Total 0.6 mg/dL (0.3-1.0); Blood Urea Nitrogen 26 mg/dL (8-23); Calcium 8.6 mg/dL (8.6-10.3); Carbon Dioxide 31 mEq/L (23-29); Chloride 102 mEq/L (98-107); Globulin 2.8 g/dL (2.4-3.5); Glucose 65 mg/dL (70-105); Osmolality,Calculated 293 (280-300); Potassium 3.9 mEq/L (3.5-5.1); Sodium 140 mEq/L (136-145); Total Protein 5.5 g/dL (6.4-8.9); eGFR For African Americans > 60 (> 60); eGFR For Non-African Americans > 60 (> 60)
[2021-04-21] MEDS: levoFLOXacin 750 MG/150 ML 750 MG/150 ML BAG IVPB SCH (10:32)
[2021-04-21] MEDS: Nystatin SUSP 5 ML UD.LIQ PO SCH ×4 (10:33→22:13)
[2021-04-21] MEDS: Multivit/Ca/Min/Fe/FA 1 TAB TABLET PO SCH (10:33)
[2021-04-21] MEDS: Metoprolol XL (24 HR) Succ 25 MG TAB.ER.24H PO SCH ×2 (10:33→22:13)
[2021-04-21] MEDS ORDERED: Furosemide 40 MG/4 ML VIAL IVP ONE (11:34)
[2021-04-21] MEDS: *HR* Rivaroxaban 10 MG TABLET PO SCH (17:26)
[2021-04-22] MEDS: Budesonide/Formoterol 160/4.5 1 PUFF INH IH SCH ×2 (07:42→19:41)
[2021-04-22] MEDS: levoFLOXacin 750 MG/150 ML 750 MG/150 ML BAG IVPB SCH (08:34)
[2021-04-22] MEDS: ALPRAZolam 0.5 MG TABLET PO PRN ×2 (09:04→17:49)
[2021-04-22] MEDS: Metoprolol XL (24 HR) Succ 25 MG TAB.ER.24H PO SCH ×2 (09:04→20:28)
[2021-04-22] MEDS: Multivit/Ca/Min/Fe/FA 1 TAB TABLET PO SCH (09:04)
[2021-04-22] MEDS: Nystatin SUSP 5 ML UD.LIQ PO SCH ×4 (09:05→20:28)
[2021-04-22] MEDS ORDERED: Furosemide 40 MG/4 ML VIAL IVP ONE ×2 (12:08→17:15)
[2021-04-22] MEDS: Acetaminophen 325 MG TABLET PO PRN (14:04)
[2021-04-22 17:07] LABS: Hematocrit 40.5 % (35.3-44.9); Mean Corpuscular HGB Conc 32.8 g/dL (31.6-35.5); Mean Corpuscular Hemoglobin 29.7 pg (28.0-33.3); Mean Corpuscular Volume 90.4 fL (83.0-100.0); Mean Platelet Volume 10.7 fL (9.4-12.4); Platelet Count 392 K/mcL (140-400); Red Blood Count 4.48 M/mcL (3.82-4.97); Red Cell Distribution Width 13.9 % (11.5-14.5); White Blood Count 10.1 K/mcL (4.3-11.1)
[2021-04-22 17:09] LABS: Hemoglobin 13.3 g/dL (11.5-15.4)
[2021-04-22 17:25] LABS: BUN/Creatinine Ratio 38 (6-26); Blood Urea Nitrogen 23 mg/dL (8-23); Calcium 8.8 mg/dL (8.6-10.3); Carbon Dioxide 27 mEq/L (23-29); Chloride 104 mEq/L (98-107); Glucose 147 mg/dL (70-105); Osmolality,Calculated 292 (280-300); Potassium 4.6 mEq/L (3.5-5.1); Sodium 138 mEq/L (136-145); eGFR For African Americans > 60 (> 60); eGFR For Non-African Americans > 60 (> 60)
[2021-04-22] MEDS: *HR* Rivaroxaban 10 MG TABLET PO SCH (17:44)
[2021-04-22 18:03] LABS: Lymphocytes # 0.8 K/mcL (0.6-4.6); Monocytes # 0.3 K/mcL (0.0-1.3); Neutrophils # 8.7 K/mcL (1.6-8.9); Platelet Estimate Normal (Normal); Toxic Granulation Present (Not Present)
[2021-04-22 18:04] LABS: Platelet Clumps Few (Not Present)
[2021-04-23] MEDS: ALPRAZolam 0.5 MG TABLET PO PRN ×2 (02:50→08:07)
[2021-04-23] MEDS: Budesonide/Formoterol 160/4.5 1 PUFF INH IH SCH ×2 (08:03→20:12)
[2021-04-23] MEDS: Metoprolol XL (24 HR) Succ 25 MG TAB.ER.24H PO SCH ×2 (08:06→20:43)
[2021-04-23] MEDS: Multivit/Ca/Min/Fe/FA 1 TAB TABLET PO SCH (08:07)
[2021-04-23] MEDS: levoFLOXacin 750 MG/150 ML 750 MG/150 ML BAG IVPB SCH (08:09)
[2021-04-23] MEDS: Nystatin SUSP 5 ML UD.LIQ PO SCH ×4 (08:09→20:51)
[2021-04-23] MEDS: ALPRAZolam 0.5 MG TABLET PO SCH ×3 (13:10→20:43)
[2021-04-23] MEDS: *HR* Rivaroxaban 10 MG TABLET PO SCH (17:58)
[2021-04-24 03:11] LABS: Basophils # 0.1 K/mcL (0.0-0.2); Basophils % 0.6 %; Eosinophils # 0.1 K/mcL (0.0-0.6); Eosinophils % 0.8 %; Hematocrit 41.4 % (35.3-44.9); Hemoglobin 13.4 g/dL (11.5-15.4); Immature Granulocytes % 4.5 % (0-4); Lymphocytes # 1.8 K/mcL (0.6-4.6); Lymphocytes % 15.2 %; Mean Corpuscular HGB Conc 32.4 g/dL (31.6-35.5); Mean Corpuscular Hemoglobin 29.1 pg (28.0-33.3); Mean Corpuscular Volume 89.8 fL (83.0-100.0); Mean Platelet Volume 10.5 fL (9.4-12.4); Monocytes # 0.9 K/mcL (0.0-1.3); Monocytes % 7.4 %; Neutrophils # 8.4 K/mcL (1.6-8.9); Platelet Count 450 K/mcL (140-400); Red Blood Count 4.61 M/mcL (3.82-4.97); Segmented Neutrophils % 71.5 %; White Blood Count 11.8 K/mcL (4.3-11.1)
[2021-04-24 03:27] LABS: BUN/Creatinine Ratio 49 (6-26); Blood Urea Nitrogen 36 mg/dL (8-23); Calcium 9.5 mg/dL (8.6-10.3); Carbon Dioxide 33 mEq/L (23-29); Chloride 97 mEq/L (98-107); Glucose 112 mg/dL (70-105); Osmolality,Calculated 295 (280-300); Potassium 4.3 mEq/L (3.5-5.1); Sodium 138 mEq/L (136-145); eGFR For African Americans > 60 (> 60); eGFR For Non-African Americans > 60 (> 60)
[2021-04-24 06:33] VITALS: BP 95/66; PULSE 80; TEMP 97.4
[2021-04-24] MEDS ORDERED: Saline Nasal Spray 44 ML BOTTLE NS PRN (06:33)
[2021-04-24] MEDS: Budesonide/Formoterol 160/4.5 1 PUFF INH IH SCH (08:46)
[2021-04-24] MEDS ORDERED: levoFLOXacin 750 MG TABLET PO SCH (09:00)
[2021-04-24] MEDS: Nystatin SUSP 5 ML UD.LIQ PO SCH (09:11)
[2021-04-24] MEDS: Metoprolol XL (24 HR) Succ 25 MG TAB.ER.24H PO SCH (09:11)
[2021-04-24] MEDS: Multivit/Ca/Min/Fe/FA 1 TAB TABLET PO SCH (09:11)
[2021-04-24] MEDS: ALPRAZolam 0.5 MG TABLET PO SCH (09:12)
[2021-04-24 11:42] VITALS: O2SAT 96
== END 2021-04-24 13:32 | disposition home health service (06) | DRG 871 ==
LOC: EMEROOARM 08:57 → 3NENU 18:37 → SUATTDRO 18:37 → 3NENU 20:35
PROVIDERS: ADMIT Student in an Organized Health Care Education/Training Program; ATTEND Internal Medicine